=== PATIENT | female | born 1955 | race Caucasian/White ===

== ENCOUNTER 2020-03-05 15:27 | Inpatient (IN) | payer BC ==
[2020-03-05] MEDS ORDERED: MAGNESIUM SULFATE-D5W PMX 1 GM in DEXTROSE/WATER 1 100ML.BAG IVPB ONE (15:48)
--- NOTE | 2020-03-05 15:56 | ED ---
General Adult HPI - General Chief complaint: Syncope Stated complaint: Cardiac Time Seen by Provider: 03/05/20 15:40 Source: patient, EMS, RN notes reviewed, old records reviewed Mode of arrival: EMS Limitations: no limitations - History of Present Illness Initial comments: This is a 64-year-old female presents emergency department from [facility]. Patient states she [facility] because she had 3 syncopal episodes at home. Patient states she had no symptoms prior to or after the episodes. Patient stated that she currently has no symptoms. Patient states after the third episode she never has had another episode. Patient states she did hit her head at home. They did a CAT scan of her head showed no acute normalities. Patient also had a CT of her neck. According to the ER doc done at [facility] patient was in V. tach when she had the episode in the hospital they gave the patient a bolus 150 amiodarone and the patient on amiodarone drip. Patient again has not had any further episodes and she remains asymptomatic. At no time did the patient any chest pain or feel any palpitations. Patient also denies any medical history at all except for she smokes. Patient denies any shortness of breath any recent fever chills or cough. Patient denies any back pain patient denies any abdominal pain patient denies any nausea or vomiting. Patient denies any headache. - Related Data Home Medications Medication Instructions Recorded Confirmed Acetaminophen Tab [Tylenol Tab] 1,000 mg PO Q6HR PRN 03/05/20 03/05/20 LORazepam [Ativan] 1 mg PO Q4H PRN 03/05/20 03/05/20 Allergies Allergy/AdvReac Type Severity Reaction Status Date / Time azithromycin Allergy Unknown Verified 03/05/20 16:05 Sulfa (Sulfonamide Allergy Unknown Verified 03/05/20 16:05 Antibiotics) Review of Systems ROS Statement: Those systems with pertinent positive or pertinent negative responses have been documented in the HPI. ROS Other: All systems not noted in ROS Statement are negative. Past Medical History Past Medical History: No Reported History History of Any Multi-Drug Resistant Organisms: None Reported Additional Past Surgical History / Comment(s): Multiple ovarian surgeries. Past Psychological History: Anxiety, Panic Disorder Smoking Status: Current every day smoker Past Alcohol Use History: None Reported Past Drug Use History: None Reported General Exam - General Exam Comments Initial Comments: GENERAL: Patient is well-developed and well-nourished. Patient is nontoxic and well-hydrated and is in no acute distress. ENT: Neck is soft and supple. No significant lymphadenopathy is noted. Oropharynx is clear. Moist mucous membranes. Neck has full range of motion without eliciting any pain. EYES: The sclera were anicteric and conjunctiva were pink and moist. Extraocular movements were intact and pupils were equal round and reactive to light. Eyelids were unremarkable. PULMONARY: Unlabored respirations. Good breath sounds bilaterally. No audible rales rhonchi or wheezing was noted. CARDIOVASCULAR: Patient has a bradycardic rhythm at about 50 beats a minute with an occasional extrasystole. ABDOMEN: Soft and nontender with normal bowel sounds. No palpable organomegaly was noted. There is no palpable pulsatile mass. SKIN: Patient has a superficial abrasion to the left side of her forehead. NEUROLOGIC: Patient is alert and oriented x3. Cranial nerves II through XII are grossly intact. Motor and sensory are also intact. Normal speech, volume and content. Symmetrical smile. MUSCULOSKELETAL: Normal extremities with adequate strength and full range of motion. No lower extremity swelling or edema. No calf tenderness. LYMPHATICS: No significant lymphadenopathy is noted PSYCHIATRIC: Normal psychiatric evaluation. Limitations: no limitations Course Vital Signs 03/05/20 03/05/20 03/05/20 15:38 16:25 17:39 Temperature 97.9 F Pulse Rate 45 L 38 L 38 L Respiratory 16 16 18 Rate Blood Pressure 137/110 109/52 112/50 O2 Sat by Pulse 97 99 96 Oximetry Medical Decision Making - Medical Decision Making Patient's EKG shows a sinus bradycardia with a second-degree AV block with occasional PAC at [address] interval 164 QRS 136 QT interval 666 QTC is 562. Amiodarone drip is continued here. I spoke with cardiology , Dr. Velasco, and he wanted EKG sent to him which I did he wanted potassium given to the patient equivalent to 60 mEq I spoke with Dr. Jackson he agreed to accept the patient in the ICU. Patient was on the way up to the [facility] she went unresponsive she was on the monitored showed torsades versus V. tach I shocked the patient 200 J she came around and became alert and oriented though complaining of not feeling well. I spoke with the [facility]ist they wanted her up in the [facility] immediately. We did a set of vitals and sent to the [facility]. Disposition Clinical Impression: V tach, Syncope, Hypokalemia, Hypomagnesemia Disposition: ADMITTED IP TO THIS HOSP Time of Disposition: 15:59
[2020-03-05] MEDS ORDERED: NITROGLYCERIN SL TABS 0.4 MG TAB SUBLINGUAL PRN (16:00)
[2020-03-05] MEDS ORDERED: HYDROcodone/APAP 5-325MG 1 EACH TAB PO PRN (16:58)
[2020-03-05] MEDS ORDERED: LORazepam 0.5 MG TAB PO PRN (16:58)
[2020-03-05] MEDS ORDERED: HYDROmorphone 0.5 MG/0.5 ML SYRINGE IVP PRN (16:58)
[2020-03-05] MEDS ORDERED: TEMAZEPAM 15 MG CAP PO PRN (16:58)
[2020-03-05] MEDS ORDERED: Potassium Replacement Protocol 1 EACH MISC MISCELLANE PRN (17:00)
[2020-03-05] MEDS ORDERED: Magnesium Replacement Protocol 1 EACH MISC MISCELLANE PRN (17:00)
[2020-03-05] MEDS ORDERED: POTASSIUM CHLORIDE ER 20 MEQ TAB.ER PO STA (17:30)
[2020-03-05] MEDS ORDERED: LIDOCAINE 1% INJ 10MG/ML (20 ML MDV) ONE (18:36)
[2020-03-05] MEDS ORDERED: IV FLUID CONTINUATION 900 ML IV ONE (18:45)
[2020-03-05] MEDS ORDERED: ASPIRIN 325 MG TAB ONE (18:49)
[2020-03-05] MEDS ORDERED: ASPIRIN 325 MG TAB PO ONE (18:55)
[2020-03-05] MEDS ORDERED: LIDOCAINE 1% INJ 10MG/ML (20 ML MDV) SQ ONE (18:58)
[2020-03-05] MEDS ORDERED: fentaNYL (PF) 50 MCG/ML 2 ML AMP IV ONE (19:05)
[2020-03-05] MEDS ORDERED: MIDAZOLAM 2 MG/2 ML VIAL IV ONE (19:05)
[2020-03-05] MEDS ORDERED: fentaNYL (PF) 50 MCG/ML 2 ML AMP ONE (19:07)
[2020-03-05] MEDS ORDERED: SODIUM CHLORIDE 0.9% 500 ML 500 ML IV ONE (19:11)
[2020-03-05] MEDS ORDERED: IOPAMIDOL-370 125ML BTL INJ ONE (19:19)
--- NOTE | 2020-03-05 19:30 | P.CRDCN ---
History of Present Illness Consult date: 03/05/20 History of present illness: This is a 64-year-old female who was transferred from [facility] after she presented there with 3 episodes of syncope. Apparently she hit her head, during one of the syncopal episodes. Patient had a computed tomography scan at the other hospital which he did not reveal any significant abnormalities. Patient had an episode of V. tach, most probably polymorphic V. tach while she was at the [facility] and [facility]. Patient was given IV amiodarone bolus and drip. Subsequently she was transferred to [facility]. EKGs here showed evidence of sinus rhythm with evidence of advanced AV block with a 2 to one conduction conduction and abnormal EKG with prolonged QT interval and T-wave inversions in anterior leads. She was also found to have evidence of hypokalemia and hypomagnesemia. Patient was given IV potassium and magnesium. She was advised to have temporary pacemaker and rn lab was activated. While waiting for the Lab, patient had another episode of polymorphic V. tach requiring shock. She is advised to have a temporary pacemaker implantation and also cardiac catheterization to rule out underlying ischemic heart disease. Patient was explained the risks and benefits of the procedure. Prognosis is guarded Review of Systems Not obtained. Patient claims that she has panic attacks and takes Ativan 1 mg every 4-6 hours. She denied taking any other medications. Past Medical History Past Medical History: No Reported History History of Any Multi-Drug Resistant Organisms: None Reported Additional Past Surgical History / Comment(s): Multiple ovarian surgeries. Past Psychological History: Anxiety, Panic Disorder Smoking Status: Current every day smoker Past Alcohol Use History: None Reported Past Drug Use History: None Reported Medications and Allergies Home Medications Medication Instructions Recorded Confirmed Type Acetaminophen Tab [Tylenol Tab] 1,000 mg PO Q6HR PRN 03/05/20 03/05/20 History LORazepam [Ativan] 1 mg PO Q4H PRN 03/05/20 03/05/20 History Allergies Allergy/AdvReac Type Severity Reaction Status Date / Time azithromycin Allergy Unknown Verified 03/05/20 16:05 Sulfa (Sulfonamide Allergy Unknown Verified 03/05/20 16:05 Antibiotics) Physical Exam Vitals: Vital Signs Temp Pulse Resp BP Pulse Ox 03/05/20 18:31 36 L 16 120/75 99 03/05/20 17:39 38 L 18 112/50 96 03/05/20 16:25 38 L 16 109/52 99 03/05/20 15:38 97.9 F 45 L 16 137/110 97 Intake and Output 03/05/20 03/05/20 03/05/20 06:59 14:59 22:59 Intake Total 100 Balance 100 Intake: IV 100 Other: Weight 44.452 kg GENERAL EXAM: Patient is alert and oriented and doesn't appear to be in any acute distress but appears to be very anxious HEENT: Normocephalic. Normal reaction of pupils, equal size, normal range of extraocular motion. No erythema or exudates in the throat. NECK: No masses, no nuchal rigidity. CHEST: No chest wall deformity. LUNGS: Equal air entry with no crackles or wheeze. HEART: S1 and S2 normal with no audible mumurs or gallops. Regular rhythm, femorals equal on both sides.. ABDOMEN: No hepatosplenomegaly, normal bowel sounds, no guarding or rigidity. SKIN: No rashes CENTRAL NERVOUS SYSTEM: No focal deficits. EXTREMITIES: No cyanosis, clubbing or edema. Results Current Medications Generic Name Dose Route Start Last Admin Trade Name Freq PRN Reason Stop Dose Admin Hydrocodone Bitart/Acetaminophen 1 each 03/05/20 16:58 [place] 5-325 PO Q6HR PRN Pain Aspirin 325 mg 03/06/20 09:00 Aspirin PO DAILY NEELIMA Heparin Sodium (Porcine) 5,000 unit 03/05/20 21:00 Heparin SQ Q12HR NEELIMA Hydromorphone HCl 0.5 mg 03/05/20 16:58 Dilaudid IVP Q6HR PRN Severe Pain Potassium Chloride 10 meq/ IV 100 mls @ 100 mls/hr 03/05/20 16:00 Solution IVPB 03/05/20 21:59 Q1HR NEELIMA Protocol Lorazepam 0.5 mg 03/05/20 16:58 Ativan PO Q6HR PRN Mild Anxiety Lorazepam 1 mg 03/05/20 17:00 Ativan PO Q4H PRN Moderate Anxiety Miscellaneous Information 1 each 03/05/20 17:00 Magnesium Per Protocol MISCELLANE DAILY PRN Per Protocol Protocol Miscellaneous Information 1 each 03/05/20 17:00 Potassium Per Protocol MISCELLANE DAILY PRN Per Protocol Protocol Nicotine 1 patch 03/06/20 09:00 Habitrol 14mg/24hr Patch TRANSDERM DAILY NEELIMA Nitroglycerin 0.4 mg 03/05/20 16:00 Nitrostat SUBLINGUAL Q5M PRN Chest Pain Temazepam 15 mg 03/05/20 16:58 Restoril PO HS PRN Insomnia Intake and Output 03/05/20 03/05/20 03/05/20 06:59 14:59 22:59 Intake Total 100 Balance 100 Intake: IV 100 Other: Weight 44.452 kg Patient Weight 03/06/20 06:59 Weight 44.452 kg EKG Interpretations (text) Showed sinus rhythm with the greatest degree of AV block and prolonged QT interval. There are also T wave inversion in the anterior leads Assessment and Plan (1) Hypokalemia Current Visit: Yes Status: Acute Code(s): E87.6 - HYPOKALEMIA SNOMED Code(s): 64646875 (2) Hypomagnesemia Current Visit: Yes Status: Acute Code(s): E83.42 - HYPOMAGNESEMIA SNOMED Code(s): 264421055 (3) Syncope Current Visit: Yes Status: Acute Code(s): R55 - SYNCOPE AND COLLAPSE SNOMED Code(s): 723509818 (4) V tach Current Visit: Yes Status: Acute Code(s): I47.2 - VENTRICULAR TACHYCARDIA SNOMED Code(s): 01948898 Plan: We'll proceed with a temporary pacemaker implantation. We'll also do a left heart catheterization. A she denied any premonitory symptoms before the syncopal episodes. Denied any chest pains
--- NOTE | 2020-03-05 19:31 | HP ---
HISTORY AND PHYSICAL DATE OF SERVICE: 03/05/2020 CHIEF COMPLAINT: Passing out. HISTORY OF PRESENT ILLNESS: This 64-year-old woman with a past medical history of anxiety, panic disorder, not being followed by any primary physician in the outpatient setting was complaining of 3 syncopal episodes. The patient went to [facility] initially. The patient was in the bathroom and the patient passed out and the patient apparently hit her head on the left side and CT scan showed no acute abnormalities. The strip in the ER at [facility] showed ventricular tachycardia. Patient was given amiodarone bolus and as well as drip and the patient transferred to [facility] for evaluation and treatment. There is no history of chest pain. No history of any palpitations. No history of headache. No seizures at this time. The patient also complaining of raspy cough foamy cough for the last couple of days according to her, but there is no history of any sick contact according to the patient. PAST MEDICAL HISTORY: Of anxiety, panic disorder. History of nicotine dependence. MEDICATIONS: Prior to admission include home medications are: 1. Tylenol p.r.n. 2. Ativan 1 mg q.4 p.r.n. ALLERGIES: ZITHROMAX, SULFA. FAMILY HISTORY: No history of heart disease or strokes in family. SOCIAL HISTORY: History of smoking, continued ongoing. REVIEW OF SYSTEMS: ENT: No diminished vision. No diminished hearing. CARDIOVASCULAR as mentioned earlier. RESPIRATORY: As mentioned earlier. GI no nausea or vomiting. no dysuria. Nervous system: No numbness or weakness. ALLERGY/IMMUNOLOGY: No asthma or hayfever. MUSCULOSKELETAL as mentioned earlier. HEMATOLOGY: No history of anemia. ENDOCRINE: No history of diabetes or hypothyroidism. CONSTITUTIONAL: As mentioned earlier. DERMATOLOGY: Negative. RHEUMATOLOGY negative. PSYCHIATRY as mentioned earlier. PHYSICAL EXAMINATION: Alert and oriented x3. Pulse is 38, blood pressure is 109/52, respirations 16, temperature 97.9, pulse ox 99% on 2 L. HEENT: Conjunctivae normal. Oral mucosa moist. NECK is no jugular venous distention. No carotid bruit. No lymph node enlargement. Cardiovascular systems: S1, S2 muffled. Respiration: Breath sounds diminished in the bases. No rhonchi. No crackles. ABDOMEN: Soft, nontender. No mass palpable. LEGS: No edema. No swelling. NERVOUS SYSTEM: Higher functions as mentioned earlier. Moves all four extremities. No focal deficits. Lymphatics: No lymph nodes palpable in the neck, axillae or groin. SKIN: No ulcer, no rash and no bleeding. JOINTS: No active deforming arthropathy. LABS: Awaited at this time. Otherwise rhythm strip showed 2-1 AV block with PVCs. ASSESSMENT: 1. Ventricular tachycardia with syncope. 2. PVCs and 2-1 AV block in the EKG. 3. Rule out coronary artery disease. 4. Cough for evaluation. 5. Anxiety. 6. Panic disorder. 7. Continued ongoing nicotine dependence. 8. Mild protein calorie malnutrition with BMI of 17.9. 9. Hypomagnesemia. 10.Hypokalemia. RECOMMENDATIONS AND DISCUSSION: In this 64-year-old woman who presented with multiple complex medical issues, we will monitor the patient closely, continue the current medications, management and symptomatic treatment. We will continue with amiodarone drip. Cardiology consultation. Full cardiac workup. We will monitor the patient in ICU because of multiple complex medical issues as mentioned earlier. Covid 19 has been requested. Other than that, we will also recommend Ativan p.r.n. for anxiety and panic attacks. Overall prognosis extremely guarded because of multiple complex medical issues. We will recommend to monitor lytes closely and follow with replacement protocol also. Further recommendations to follow. 2D echo with Doppler has been ordered. MMODL / IJN: [id number] /
--- NOTE | 2020-03-05 19:33 | P.PCN ---
Date of Procedure: 03/05/20 Preoperative Diagnosis: High degree AV block, prolonged QT interval and recurrent polymorphic V. tach Postoperative Diagnosis: The same Procedure(s) Performed: Temporary pacemaker implantation Description of Procedure: Patient was brought to the lab in a fasting state. Patient was prepped and draped in the usual fashion. The right groin is infiltrated with lidocaine. The right femoral vein was entered using Seldinger technique. A 6-Serbian sheath was left in place. A 5-Serbian balloontipped temporary pacemaker wire was advanced under fluoroscopy and was placed in the right ventricle apical region. Satisfactory pacemaker threshold obtained. The pacemaker is set at a rate of 100 and output of 3 mV. Patient tolerated the procedure well. The sheath is sutured to the floor. Final impression: #1. Successful implantation of temporary pacemaker.
--- NOTE | 2020-03-05 19:36 | P.CARDCATH ---
Date of Procedure: 03/05/20 Preoperative Diagnosis: Recurrent polymorphic V. tach, syncope, high degree AV block and abnormal EKG Postoperative Diagnosis: Minimal coronary artery disease Procedure(s) Performed: Left heart catheterization without left ventriculography Description of Procedure: HISTORY: This is a 64-year-old female was admitted to the hospital recurrent episodes of syncope, high degree AV block and polymorphic V. tach and abnormal EKGs. Patient is advised to have cardiac catheterization to rule out any underlying ischemic heart disease. Patient is a smoker with family history of ischemic heart disease CONSENT:I have discussed the risks, benefits and alternative therapies for the above-mentioned procedure and for both sedation/analgesia as well as necessary blood product administration, if indicated, as they pertain to this patient. The patient has indicated understanding and acceptance of the risks and procedures discussed. PROCEDURE: Patient was brought to the lab in a fasting state. Patient was given some IV sedation. The right groin is infiltrated with lidocaine and right femoral artery was entered using Seldinger technique. A 6-Afghan catheter was left in place and selective coronary arteriography was performed. Patient tolerated the procedure well. Femoral angiogram was performed and Angio-Seal was applied for hemostasis. No immediate complications were noted and patient was transferred to [facility] in a stable condition Conscious Sedation: Versed 0.5mg Fentanyl 25 g Duration 18minutes HEMODYNAMICS: Aortic pressure is 140/70. Left ventricular end-diastolic pressure was not measured SELECTIVE CORONARY ARTERIOGRAPHY: LEFT MAIN: Normal length and free of occlusive disease THE LEFT ANTERIOR DESCENDING CORONARY ARTERY:. Good caliber vessel with mild plaque and calcification of the proximal segments. Mid and distal segments are free of any occlusive disease THE LEFT CIRCUMFLEX AND IS CORONARY ARTERY:. This is a fair caliber vessel. Free of occlusive disease THE RIGHT CORONARY ARTERY:. Dominant vessel giving rise to good-sized PDA and PLV. Mild plaque without any significant focal lesions LEFT VENTRICULOGRAPHY: Not performed FINAL IMPRESSION:. Mild coronary artery disease and calcification of the coronary arteries PLAN: Maximum medical therapy and this factor modification PROGNOSIS: Fair
[2020-03-05] MEDS ORDERED: RX INFO: IV CONTRAST WAS GIVEN 1 EACH MISC MISCELLANE PRN (19:42)
[2020-03-05 19:56] LABS: Glucose,Whole Blood 121 mg/dL (75-99)
[2020-03-05 20:28] LABS: Appearance,Urine Clear (Clear); Bilirubin,Urine Negative (Negative); Blood,Urine Negative (Negative); Color,Urine Light Yellow; Glucose,Urine (UA) Negative (Negative); Ketones,Urine Negative (Negative); Leukocyte Esterase,Urine Negative (Negative); Nitrite,Urine Negative (Negative); PH, Urine 6.5 (5.0-8.0); Protein,Urine 1+ (Negative); RBC,Urine 2 /hpf (0-5); Specific Gravity,Urine 1.025 (1.001-1.035); Squamous Epithelial Cell,Urine <1 /hpf (0-4); Urobilinogen,Urine <2.0 mg/dL (<2.0); WBC,Urine 1 /hpf (0-5)
[2020-03-05 20:38] LABS: Amphetamine Screen,Urine Not Detected (NotDetected); Barbiturate Screen,Urine Not Detected (NotDetected); Benzodiazepines Screen,Urine Detected (NotDetected); Cocaine Screen,Urine Not Detected (NotDetected); Methadone Screen, Urine Not Detected (NotDetected); Opiate Screen,Urine Not Detected (NotDetected); Oxycodone Screen, Urine Not Detected (NotDetected); Phencyclidine Screen,Urine Not Detected (NotDetected); Tricyclic Antidepressant,Urine Not Detected (NotDetected); Urn Cannabinoid Scrn Not Detected (NotDetected)
[2020-03-05] MEDS: HEPARIN SODIUM,PORCINE 5,000 UNIT/ML 1 ML VIAL SQ SCH (20:40)
[2020-03-05] MEDS: LORazepam 1 MG TAB PO PRN (20:41)
[2020-03-05] MEDS: NICOTINE 14MG/24HR PATCH TRANSDERM SCH (20:41)
[2020-03-05] MEDS: POTASSIUM CHLORIDE 10 MEQ in WATER FOR INJECTION 1 100ML.BAG IVPB SCH (20:41)
[2020-03-05 20:43] LABS: ALT 609 U/L (4-34); AST 394 U/L (14-36); African American GFR (CKD) >90 (>60 ml/min/1.73 sqM); Albumin 3.3 g/dL (3.5-5.0); Alkaline Phosphatase 276 U/L (38-126); Anion Gap 5 mmol/L; Blood Urea Nitrogen 12 mg/dL (7-17); Calcium 8.7 mg/dL (8.4-10.2); Carbon Dioxide 24 mmol/L (22-30); Chloride 110 mmol/L (98-107); Glucose 105 mg/dL (74-99); Non-African American GFR(CKD) >90 (>60 ml/min/1.73 sqM); Potassium 4.4 mmol/L (3.5-5.1); Sodium 139 mmol/L (137-145); Total Bilirubin 0.6 mg/dL (0.2-1.3); Total Protein 5.8 g/dL (6.3-8.2)
[2020-03-06] MEDS ORDERED: ACETAMINOPHEN TAB 325 MG TAB PO STA (01:00)
[2020-03-06] MEDS: POTASSIUM CHLORIDE 10 MEQ in WATER FOR INJECTION 1 100ML.BAG IVPB SCH ×3 (01:23→03:16)
[2020-03-06 03:06] LABS: Basophils % (A) 0 %; Eosinophils # (A) 0.1 k/uL (0-0.7); Eosinophils % (A) 1 %; HCT 37.5 % (34.0-46.0); HGB 12.2 gm/dL (11.4-16.0); Lymphocytes # (A) 2.3 k/uL (1.0-4.8); Lymphocytes % (A) 36 %; MCHC 32.5 g/dL (31.0-37.0); MCV 104.6 fL (80.0-100.0); Macrocytosis Slight; Mean Platelet Volume 9.4; Monocytes # (A) 0.4 k/uL (0-1.0); Monocytes % (A) 7 %; Neutrophils # (A) 3.4 k/uL (1.3-7.7); Neutrophils % (A) 54 %; Platelet Count 152 k/uL (150-450); RBC 3.59 m/uL (3.80-5.40); RDW 12.5 % (11.5-15.5); WBC 6.3 k/uL (3.8-10.6)
[2020-03-06 03:16] LABS: African American GFR (CKD) >90 (>60 ml/min/1.73 sqM); Anion Gap 1 mmol/L; Blood Urea Nitrogen 9 mg/dL (7-17); Calcium 8.5 mg/dL (8.4-10.2); Carbon Dioxide 22 mmol/L (22-30); Chloride 114 mmol/L (98-107); Glucose 95 mg/dL (74-99); Magnesium 2.2 mg/dL (1.6-2.3); Non-African American GFR(CKD) >90 (>60 ml/min/1.73 sqM); Potassium 4.5 mmol/L (3.5-5.1); Sodium 137 mmol/L (137-145)
[2020-03-06] MEDS: LORazepam 1 MG TAB PO PRN ×5 (03:17→20:58)
[2020-03-06 04:02] LABS: Cholesterol 134 mg/dL (<200); HDL Cholesterol 55 mg/dL (40-60); LDL Cholesterol,Calculated 59 mg/dL (0-99); Triglycerides 99 mg/dL (<150)
--- NOTE | 2020-03-06 06:32 | XR ---
EXAMINATION TYPE: XR chest 1V portable DATE OF EXAM: 03/06/2020 HISTORY: chf. REFERENCE: NONE. FINDINGS: There are mild senescent changes within the lungs. Heart size is within normal limits. Pulm onary vasculature is normal. There is no reid interstitial change. Pleural spaces are clear. IMPRESSION: BORDERLINE CARDIOMEGALY.
--- NOTE | 2020-03-06 07:41 | ECHOF ---
Referral Reason:V. tach MEASUREMENTS -------- HEIGHT: 157.5 cm WEIGHT: 44.5 kg BP: 120/75 RVIDd: 4.4 cm (< 3.3) IVSd: 1.3 cm (0.6 - 1.1) LVIDd: 3.4 cm (3.9 - 5.3) LVPWd: 1.3 cm (0.6 - 1.1) IVSs: 1.3 cm LVIDs: 2.4 cm LVPWs: 1.5 cm LAESV Index (A-L): 30.93 ml/m Ao Diam: 3.1 cm (2.0 - 3.7) AV Cusp: 1.7 cm (1.5 - 2.6) MV EXCURSION: 17.310 mm (> 18.000) MV EF SLOPE: 143 mm/s (70 - 150) EPSS: 0.9 cm RAP: 15.00 mmHg RVSP: 37.38 mmHg FINDINGS -------- Paced rhythm. This was a technically adequate study. The left ventricular size is normal. There is mild concentric left ventricular hypertrophy. Overa ll left ventricular systolic function is mild-moderately impaired with, an EF between 40 - 45 %. Mi d anteroseptal LV wall motion is hypokinetic. Apical inferior LV wall motion is hypokinetic. Ap ical septum LV wall motion is hypokinetic. [place] Hypokinesis. The right ventricle is moderately enlarged. LA is midly dilated 29-33ml/m2. The right atrial size is normal. Interatrial and interventricular septum intact. The aortic valve is trileaflet and appears structurally normal. There is no evidence of aortic regu rgitation. There is no evidence of aortic stenosis. Moderate mitral regurgitation is present. Mild tricuspid regurgitation present. There is mild pulmonary hypertension. The right ventricular systolic pressure, as measured by Doppler, is 37.38mmHg. There is no pulmonic regurgitation present. The aortic root size is normal. The inferior vena cava is dilated with poor inspiratory collapse which is consistent with estimated r ight atrial pressure of 20 mmHg. There is no pericardial effusion. CONCLUSIONS -------- 1. Paced rhythm. 2. This was a technically adequate study. 3. The left ventricular size is normal. 4. There is mild concentric left ventricular hypertrophy. 5. Overall left ventricular systolic function is mild-moderately impaired with, an EF between 40 - 45 %. 6. Mid anteroseptal LV wall motion is hypokinetic. 7. Apical inferior LV wall motion is hypokinetic. 8. Apical septum LV wall motion is hypokinetic. 9. [place] Hypokinesis. 10. The right ventricle is moderately enlarged. 11. LA is midly dilated 29-33ml/m2. 12. The right atrial size is normal. 13. Interatrial and interventricular septum intact. 14. The aortic valve is trileaflet and appears structurally normal. 15. There is no evidence of aortic regurgitation. 16. There is no evidence of aortic stenosis. 17. Moderate mitral regurgitation is present. 18. Mild tricuspid regurgitation present. 19. There is mild pulmonary hypertension. 20. The right ventricular systolic pressure, as measured by Doppler, is 37.38mmHg. 21. There is no pulmonic regurgitation present. 22. The aortic root size is normal. 23. The inferior vena cava is dilated with poor inspiratory collapse which is consistent with estimat ed right atrial pressure of 20 mmHg. 24. There is no pericardial effusion. OVER SHORT AND DAMAGE CLERK: Elisha Zaman RDCS
--- NOTE | 2020-03-06 08:59 | P.PN ---
Subjective Progress Note Date: 03/06/20 This is a 64-year-old female who was transferred from [facility] after she presented there with 3 episodes of syncope. Apparently she hit her head, during one of the syncopal episodes. Patient had a computed tomography scan at the other hospital which he did not reveal any significant abnorm alities. Patient had an episode of V. tach, most probably polymorphic V. tach while she was at [facility]. Patient was given IV amiodarone bolus and drip. Subsequently she was transferred here to [facility]. EKGs here showed evidence of sinus rhythm with evidence of advanced AV block with a 2:1 conduction, prolonged QT interval and T-wave inversions in anterior leads. She was also found to have evidence of hypokalemia and hypomagnesemia. Patient was given IV potassium and magnesium. She was advised to have temporary pacemaker and laborer general was activated. While waiting for the Lab, patient had another episode of polymorphic V. tach requiring shock. She is advised to have a temporary pacemaker implantation and also cardiac catheterization to rule out underlying ischemic heart disease. Patient was explained the risks and benefits of the procedure. Prognosis is guarded. 03/06/2020 Patient underwent cardiac catheterization done yesterday which showed mild CAD in calcification of the coronary arteries. At that time a temporary pacemaker was placed. Echocardiogram with Doppler done yesterday evening showed paced rhythm, mild to moderately impaired LV systolic function with an ejection fraction between 40-45%, mid anteroseptal, apical inferior, apical septal and apical hypokinesis with moderately enlarged RV moderate MR, mild TR and mild pulmonary hypertension. On examination, patient is resting in bed complaining of right upper quadrant discomfort and epigastric burning. Patient remains with temporary pacemaker in place pacing at a rate of 100 bpm. Upon dialing down temporary pacemaker to 40 patient remains pacemaker dependent at that rate. B lood pressure remains in the 90s systolic. She is oxygen at 2 L via nasal cannula and satting 98%. Labs this morning show potassium 4.5, BUN 9, creatinine 0.37, magnesium 2.2. Liver enzymes are elevated with AST of 394, ALTs 609 and alkaline phosphatase of 276. Objective - Vital Signs Vital signs: Vital Signs Temp 98.1 F 03/06/20 04:00 Pulse 100 03/06/20 07:00 Resp 14 03/06/20 07:00 BP 95/57 03/06/20 07:00 Pulse Ox 98 03/06/20 07:00 Intake & Output 03/05/20 03/06/20 03/06/20 18:59 06:59 18:59 Intake Total 50 1140 10 Output Total 2100 200 Balance 50 -960 -190 Weight 50.4 kg 50.4 kg Intake: IV 50 260 10 Sodium Chloride 0.9% 210 10 Oral 880 Output: Urine 2100 200 Other: # Voids 1 - Exam PHYSICAL EXAMINATION: HEENT: Head is atraumatic, normocephalic. Pupils equal, round. Neck is supple. There is no elevated jugular venous pressure. HEART EXAMINATION: Heart sounds regular, S1 and S2 with a systolic murmur. CHEST EXAMINATION: Lungs are clear to auscultation and precussion. No chest wall tenderness is noted on palpation or with deep breathing. ABDOMEN: Soft, right upper quadrant tenderness noted. Bowel sounds are heard. No organomegaly noted. EXTREMITIES: 2+ peripheral pulses with no evidence of peripheral edema and no calf tenderness noted. Right groin TVP in place. NEUROLOGIC patient is awake, alert and oriented x3. . - Labs CBC & Chem 7: 03/06/20 02:27 03/06/20 02:27 Labs: Abnormal Lab Results - Last 24 Hours (Table) 03/05/20 03/05/20 03/05/20 Range/Units 19:55 20:06 20:06 RBC (3.80-5.40) m/uL MCV (80.0-100.0) fL Chloride 110 H (98-107) mmol/L Creatinine 0.44 L (0.52-1.04) mg/dL Glucose 105 H (74-99) mg/dL POC Glucose (mg/dL) 121 H (75-99) mg/dL AST 394 H (14-36) U/L ALT 609 H (4-34) U/L Alkaline Phosphatase 276 H (38-126) U/L Troponin I 0.092 H* (0.000-0.034) ng/mL Total Protein 5.8 L (6.3-8.2) g/dL Albumin 3.3 L (3.5-5.0) g/dL Urine Protein (Negative) U Benzodiazepines Scrn (NotDetected) 03/05/20 03/06/20 03/06/20 Range/Units 20:07 02:27 02:27 RBC (3.80-5.40) m/uL MCV (80.0-100.0) fL Chloride 114 H (98-107) mmol/L Creatinine 0.37 L (0.52-1.04) mg/dL Glucose (74-99) mg/dL POC Glucose (mg/dL) (75-99) mg/dL AST (14-36) U/L ALT (4-34) U/L Alkaline Phosphatase (38-126) U/L Troponin I 0.073 H* (0.000-0.034) ng/mL Total Protein (6.3-8.2) g/dL Albumin (3.5-5.0) g/dL Urine Protein 1+ H (Negative) U Benzodiazepines Scrn Detected H (NotDetected) 03/06/20 Range/Units 02:27 RBC 3.59 L (3.80-5.40) m/uL MCV 104.6 H (80.0-100.0) fL Chloride (98-107) mmol/L Creatinine (0.52-1.04) mg/dL Glucose (74-99) mg/dL POC Glucose (mg/dL) (75-99) mg/dL AST (14-36) U/L ALT (4-34) U/L Alkaline Phosphatase (38-126) U/L Troponin I (0.000-0.034) ng/mL Total Protein (6.3-8.2) g/dL Albumin (3.5-5.0) g/dL Urine Protein (Negative) U Benzodiazepines Scrn (NotDetected) Assessment and Plan Assessment: #1 polymorphic ventricular tachycardia in the setting of hypokalemia and hypomagnesemia #2 syncope likely secondary to above #3 mild CAD #4 second-degree type II AV block, pacemaker dependent at VVI 40 Plan: We will continue transvenous pacing at this time and a rate of 90 bpm. Continue to monitor the patient overnight. Probable implantation of permanent pacemaker tomorrow. Obtain an abdominal ultrasound and GI consult. Add Protonix. We will continue to follow the patient and provide further recommendations accordingly. COAL HAULER OPERATOR note has been reviewed, I agree with a documented findings and plan of care. Patient was seen and examined.
[2020-03-06] MEDS ORDERED: NICOTINE 14MG/24HR PATCH TRANSDERM SCH (09:00)
--- NOTE | 2020-03-06 09:44 | US ---
EXAMINATION TYPE: US gallbladder DATE OF EXAM: 03/06/2020 COMPARISON: NONE CLINICAL HISTORY: elevated liver enzymes. npo EXAM MEASUREMENTS: Liver Length: 17.0 cm Gallbladder Wall: 0.2 cm CBD: 0.4 cm Right Kidney: 11.9 x 4.8 x 4.3 cm Pancreas: wnl Liver: left lobe cystic appearing lesion - 0.7 x 0.8 x 0.4 cm Gallbladder: wnl Evidence for sonographic Cervantes's sign: neg CBD: wnl Right Kidney: No hydronephrosis or masses seen Limited views of the pancreas are unremarkable. The liver is normal in size. Cystic lesion in the left lobe liver I believe is probably a prominent d uct. The gallbladder is unremarkable. The gallbladder wall measures 2 mm. The distal common hepatic duct m easures 4 mm. There is no sonographic Cervantes's sign. The right kidney is unremarkable. IMPRESSION: NO ACUTE ABNORMALITY.
[2020-03-06] MEDS: PANTOPRAZOLE 40 MG TABLET PO SCH (09:56)
[2020-03-06] MEDS: HEPARIN SODIUM,PORCINE 5,000 UNIT/ML 1 ML VIAL SQ SCH ×2 (09:58→20:58)
[2020-03-06] MEDS: NICOTINE 14MG/24HR PATCH TRANSDERM SCH (09:58)
[2020-03-06] MEDS: ASPIRIN 325 MG TAB PO SCH (09:58)
--- NOTE | 2020-03-06 10:52 | P.CNPUL ---
History of Present Illness Consult date: 03/06/20 Requesting physician: Darshan Peacock Reason for consult: other (High degree AV block and ventricular tachycardia) Chief complaint: Recurrent falls History of present illness: This is a 64-year-old female transferred from [facility] last night. Patient presented with recurrent episodes of syncope 3. Apparently sustained some head injury, and CT of the head showed no significant ab normality. Apparently on presentation to the hospital, patient was noted to be in ventricular tachycardia with polymorphic V. tach. This was her initial presentation at [facility]. Patient was placed on amiodarone bolus and drip. And she was transferred to [facility]. EKG upon presentation showed advanced high degree AV block, with a 2-1 conduction and prolonged Q T-wave interval and T-wave inversion in anterior leads. She was also hypokalemic and hypomagnesemic. Both were corrected by the ER physician. And the patient was seen on consultation by cardiology, underwent a temporary pacemaker placement, and she underwent cardiac catheterization. While in the cardiac catheterization lab, patient had one episode of polymorphic ventricular tachycardia requiring shock. Her cardiac catheterization showed mild coronary artery disease, and the recommendation was only medical therapy and factor modification. Echocardiogram showed impaired LV function with ejection fraction of 40-45%. And there was also evidence of moderate mitral regurgitation and mild pulmonary hypertension. Right-sided pressure was estimated to be about 37. Patient was admitted to the ICU last night, and I was asked to see her on consultation. During my evaluation, patient was noted to be stable, her blood pressure is normal, she is fully paced, and in no distress. Noted to be sligh tly anxious. Chest x-ray showed mostly borderline cardiomegaly, no evidence of active pulmonary disease. She was already seen by salesperson jewelry morning, and the plan is to eventually schedule the patient for permanent pacemaker implantation in the next 24-48 hours. Review of Systems Constitutional: Negative Pulmonary: Negative Cardiac: As noted in HPI GI: Negative Genitourinary: Negative Musculoskeletal: Negative Skin: Negative Hematologic: Negative Neurologic: Syncope 3, cardiac in nature. Psychiatric: History of generalized anxiety disorder. Lymphatics: Negative Endocrine: Negative Past Medical History Past Medical History: No Reported History History of Any Multi-Drug Resistant Organisms: None Reported Additional Past Surgical History / Comment(s): Multiple ovarian surgeries. Past Psychological History: Anxiety, Panic Disorder Smoking Status: Current every day smoker Past Alcohol Use History: None Reported Past Drug Use History: None Reported - Past Family History Mother History Unknown: Yes Family Medical History: CVA/TIA Father History Unknown: Yes Family Medical History: Cancer Medications and Allergies Home Medications Medication Instructions Recorded Confirmed Type Acetaminophen Tab [Tylenol Tab] 1,000 mg PO Q6HR PRN 03/05/20 03/05/20 History LORazepam [Ativan] 1 mg PO Q4H PRN 03/05/20 03/05/20 History Allergies Allergy/AdvReac Type Severity Reaction Status Date / Time azithromycin Allergy Unknown Verified 03/05/20 16:05 Sulfa (Sulfonamide Allergy Unknown Verified 03/05/20 16:05 Antibiotics) Physical Exam Vitals: Vital Signs Temp Pulse Resp BP Pulse Ox 03/06/20 09:00 89 25 H 101/56 96 03/06/20 08:00 98.3 F 100 16 103/74 95 03/06/20 07:00 100 14 95/57 98 03/06/20 06:00 100 13 96/60 98 03/06/20 05:00 100 14 92/63 97 03/06/20 04:00 98.1 F 100 15 103/71 97 03/06/20 03:46 16 03/06/20 03:00 100 16 97/56 94 L 03/06/20 02:00 100 16 95/62 95 03/06/20 01:00 100 19 104/68 95 03/06/20 00:00 98.1 F 100 17 106/61 95 03/05/20 23:49 20 03/05/20 23:00 100 20 115/54 96 03/05/20 22:00 100 52 H 117/76 97 03/05/20 21:00 98.3 F 100 15 122/68 98 03/05/20 20:00 100 15 97 03/05/20 18:31 36 L 16 120/75 99 03/05/20 17:39 38 L 18 112/50 96 03/05/20 17:22 18 97 03/05/20 16:25 38 L 16 109/52 99 03/05/20 15:38 97.9 F 45 L 16 137/110 97 Intake and Output 03/05/20 03/06/20 03/06/20 22:59 06:59 14:59 Intake Total 160 1030 30 Output Total 500 1600 450 Balance -340 -570 -420 Intake: IV 160 150 30 Sodium Chloride 0.9% 60 150 30 Oral 880 Output: Urine 500 1600 450 Other: # Voids 1 Weight 50.4 kg 50.4 kg Physical Exam: Revealed a 64-year-old female in no distress. Noted to be slightly anxious. Head: Superficial abrasion noted the left side of the forehead, and bruising noted related to recent fall/syncope. HEENT:[Neck is supple.] [No neck masses.] [No thyromegaly.] [No JVD.] Chest: [Clear throughout, no crackles, no rhonchi, no wheezes.] Cardiac Exam: [Normal S1 and S2, no S3 gallop, no murmur.] Abdomen: [Soft, nontender, no megaly, no rebound, no guarding, normal bowel sounds.] Extremities: [No clubbing, no edema, no cyanosis. Temporary pacemaker wires noted in the right groin. Neurological Exam: [No focal neurologic deficit.] Alert and oriented 3. Psychiatric: Slightly anxious mood, blunt affect, normal mental status. Skin: Abrasion/superficial left forehead, and bruising noted from recent fall. Results - Laboratory Findings CBC and BMP: 03/06/20 02:27 03/06/20 02:27 Abnormal lab findings: Abnormal Labs 03/05/20 03/05/20 03/05/20 19:55 20:06 20:06 RBC MCV Chloride 110 H Creatinine 0.44 L Glucose 105 H POC Glucose (mg/dL) 121 H AST 394 H ALT 609 H Alkaline Phosphatase 276 H Troponin I 0.092 H* Total Protein 5.8 L Albumin 3.3 L Urine Protein U Benzodiazepines Scrn 03/05/20 03/06/20 03/06/20 20:07 02:27 02:27 RBC MCV Chloride 114 H Creatinine 0.37 L Glucose POC Glucose (mg/dL) AST ALT Alkaline Phosphatase Troponin I 0.073 H* Total Protein Albumin Urine Protein 1+ H U Benzodiazepines Scrn Detected H 03/06/20 02:27 RBC 3.59 L MCV 104.6 H Chloride Creatinine Glucose POC Glucose (mg/dL) AST ALT Alkaline Phosphatase Troponin I Total Protein Albumin Urine Protein U Benzodiazepines Scrn - Diagnostic Findings Chest x-ray: image reviewed (As noted in HPI, normal) Assessment and Plan Assessment: Impression: Recurrent syncope secondary to polymorphic ventricular tachycardia Hypokalemia and hypomagnesemia possibly contributing to her ventricular tachycardia. Mild coronary artery disease. Generalized anxiety disorder. Patient is maintained on Ativan. Second-degree type II AV block, status post temporary pacemaker placement. Recommendation: Continue present supportive care measures Continue to monitor in the ICU and monitor electrolytes including potassium and magnesium. Continue temporary pacing. And likely patient will require permanent pacemaker implantation tomorrow. Continue medical therapy for underlying coronary artery disease which is mild and the risk modifications. We will reevaluate in a.m. Continue GI and DVT prophylaxis. Time with Patient: Greater than 30
[2020-03-06] MEDS ORDERED: MELATONIN 5 MG TABLET PO PRN (13:04)
[2020-03-06] MEDS: MAG HYDROX/AL HYDROX/SIMETH 30 ML CUP PO PRN ×2 (14:10→23:28)
[2020-03-06] MEDS: ACETAMINOPHEN TAB 325 MG TAB PO PRN ×2 (15:33→23:45)
--- NOTE | 2020-03-06 15:52 | PN ---
PROGRESS NOTE She was admitted yesterday with recurrent syncopal episodes with documented polymorphic ventricular tachycardia and high-degree AV block. The patient had a temp replacement yesterday and remained stable overnight. Today, we tried to bring the heart pacing rate down, but the patient did not have any underlying conduction. On review of her EKG showed ST elevations and changes in the EKG, which could be consistent with Brugada syndrome. Her echo also showed some segmental wall motion abnormalities. Most probably, the patient will require a defibrillator implantation. I will make the decision after discussing with Dr. Aguero, the auto tune up mechanic. Meanwhile, we will continue current medical therapy. We will repeat the lab work tomorrow. Her ultrasound of the gallbladder came back normal. MMODL / IJN: [id number] /
--- NOTE | 2020-03-06 16:22 | PN ---
PROGRESS NOTE DATE OF SERVICE: 03/06/2020 This 64-year-old woman admitted with syncope, was found to have ventricular tachycardia. Patient had cardiac arrhythmia also. Patient underwent a left heart cardiac catheterization by Cardiology showed only very minimal coronary artery disease. The patient also underwent a temporary venous pacemaker implantation for high-degree AV block, prolonged QT interval and recurrent polymorphic ventricular tachycardia. The patient slated for pacemaker implantation. An abdominal ultrasound was also done which showed no acute abnormality. Multiple consultants are following the patient closely. The patient being closely monitored in ICU at this time. PAST MEDICAL HISTORY: Reviewed. REVIEW OF SYSTEMS: Cardiovascular system: No angina or palpitations. Otherwise as mentioned earlier. Respiration no cough. GASTROINTESTINAL: As mentioned earlier. no dysuria. Nervous systems: No numbness or weakness. CURRENT MEDICATIONS: Medications are reviewed and include: 1. Tilden 5 mg q.6 p.r.n. 2. Maalox 30 mL q.4 p.r.n. 3. Aspirin 320. 4. Heparin. 5. Dilaudid. 6. Ativan. 7. Melatonin. 8. P.r.n. medications. 9. Habitrol. 10.Protonix. 11.Restoril. PHYSICAL EXAM: Patient is alert, oriented x3. Pulse is 89. Blood pressure 139/40, respiration 14, temperature 98.5, pulse ox is 94% on room air. HEENT: Conjunctivae normal. NECK: No JVD. CARDIOVASCULAR: S1, S2 muffled. RESPIRATORY: Breath sounds diminished in the bases. No rhonchi. No crackles. ABDOMEN: Soft, nontender. No mass palpable. LEGS no edema. No swelling. NERVOUS SYSTEM: Higher functions as mentioned earlier. Moves all 4 limbs. No focal motor or sensory deficits. LYMPHATICS: No lymph nodes palpable in the neck, axillae or groin. SKIN: No ulcers, rashes or bleeding. JOINTS: No active deforming arthropathy. LABS: AST 394, ALT is 609 and alkaline phosphatase is 276. The drug screen is positive for benzodiazepines, alejo verus is negative. ASSESSMENT: 1. Polymorphic ventricular tachycardia secondary to possible QT prolongation with high- grade AV block, status post transvenous pacemaker implantation. 2. Status post cardiac catheterization showing only minimal coronary artery disease. 3. Chronic congestive heart failure with chronic systolic dysfunction ejection fraction 40-45 percent. 4. History of anxiety. 5. Panic disorder. 6. Continued ongoing nicotine dependence. 7. Mild protein calorie malnutrition with BMI of 17.9. 8. Hypomagnesemia. 9. Hypokalemia. 10.Increased AST, ALT, hepatitis of undetermined etiology. 11.Troponin 0.092, indeterminate. 12.Hyperchloremia. 13.Increased MCV. 14.Moderate mitral regurgitation the 2D echo. RECOMMENDATIONS AND DISCUSSION: In this 64-year-old woman who presented with multiple complex medical issues, we will monitor the patient closely, continue the current medications, management, symptomatic treatment. I recommend use Ativan p.r.n. Otherwise, we will continue to monitor. Closely follow with Cardiology. The most recent chest x-ray which was evaluated personally by me showed only borderline cardiomegaly. A 2D echo with Doppler was done by Cardiology which showed ejection fraction 40-45 percent. Apical wall hypokinesis also noted. Takotsubo is a concern. Otherwise, moderate mitral regurgitation also noted in the 2D echo. We will continue to monitor. Monitor fluid and electrolytes balance closely. As mentioned earlier, possible pacemaker implant by Cardiology. Symptomatic treatment. Guarded prognosis. Further recommendations to follow. MMODL / IJN: [id number] /
[2020-03-06] MEDS ORDERED: BISACODYL 10 MG SUPP RECTAL STA (21:22)
[2020-03-07] MEDS: LORazepam 1 MG TAB PO PRN ×5 (03:38→23:33)
[2020-03-07 04:59] LABS: Basophils % (A) 0 %; Eosinophils # (A) 0.1 k/uL (0-0.7); Eosinophils % (A) 1 %; HCT 38.5 % (34.0-46.0); HGB 12.7 gm/dL (11.4-16.0); Lymphocytes # (A) 2.2 k/uL (1.0-4.8); Lymphocytes % (A) 34 %; MCHC 32.9 g/dL (31.0-37.0); MCV 103.4 fL (80.0-100.0); Macrocytosis Slight; Monocytes # (A) 0.5 k/uL (0-1.0); Monocytes % (A) 8 %; Neutrophils # (A) 3.5 k/uL (1.3-7.7); Neutrophils % (A) 54 %; Platelet Count 165 k/uL (150-450); RBC 3.72 m/uL (3.80-5.40); RDW 12.3 % (11.5-15.5); WBC 6.4 k/uL (3.8-10.6)
[2020-03-07 05:24] LABS: African American GFR (CKD) >90 (>60 ml/min/1.73 sqM); Anion Gap 4 mmol/L; Blood Urea Nitrogen 5 mg/dL (7-17); Calcium 8.6 mg/dL (8.4-10.2); Carbon Dioxide 24 mmol/L (22-30); Chloride 110 mmol/L (98-107); Glucose 91 mg/dL (74-99); Non-African American GFR(CKD) >90 (>60 ml/min/1.73 sqM); Potassium 3.8 mmol/L (3.5-5.1); Sodium 138 mmol/L (137-145)
[2020-03-07] MEDS ORDERED: POTASSIUM CHLORIDE ER 20 MEQ TAB.ER PO SCH (06:00)
[2020-03-07] MEDS: PANTOPRAZOLE 40 MG TABLET PO SCH (06:30)
--- NOTE | 2020-03-07 07:18 | XR ---
EXAMINATION TYPE: XR chest 1V DATE OF EXAM: 03/07/2020 COMPARISON: 03/06/2020 HISTORY: Shortness of breath TECHNIQUE: Single frontal view of the chest is obtained. FINDINGS: Increasing strand-like bibasilar opacities. Background emphysematous change and upper limi ts of normal cardiomediastinal silhouette size. Diffuse osseous demineralization is noted. There is s light retrocardiac lucency that could relate to a hiatal hernia or the emphysematous change. No sizab le pleural effusion or pneumothorax. IMPRESSION: Increasing reticular bibasilar opacities, likely atelectasis. Developing pneumonia is an alternative possibility in the appropriate clinical setting.
[2020-03-07] MEDS: MAGNESIUM SULFATE-D5W PMX 1 GM in DEXTROSE/WATER 1 100ML.BAG IVPB SCH ×2 (08:07→09:55)
[2020-03-07] MEDS: NICOTINE 14MG/24HR PATCH TRANSDERM SCH (08:07)
[2020-03-07] MEDS: HEPARIN SODIUM,PORCINE 5,000 UNIT/ML 1 ML VIAL SQ SCH ×2 (08:07→20:16)
[2020-03-07] MEDS: ASPIRIN 325 MG TAB PO SCH (08:07)
[2020-03-07] MEDS: SPIRONOLACTONE 25 MG TAB PO SCH (08:33)
[2020-03-07] MEDS ORDERED: ceFAZolin 1,000 MG in SODIUM CHLORIDE 0.9% IRRIGATIO 250 ML IRRIGATION ONE ×3 (09:31→14:00)
[2020-03-07] MEDS ORDERED: SODIUM CHLORIDE 0.9% 1,000 ML IV SCH ×2 (09:45)
[2020-03-07 09:50] LABS: Total Bilirubin 0.3 mg/dL (0.2-1.3)
[2020-03-07] MEDS ORDERED: HYDROmorphone (PF) 1 MG/ML ONE (10:21)
[2020-03-07] MEDS ORDERED: MIDAZOLAM 2 MG/2 ML VIAL ONE (10:21)
[2020-03-07] MEDS ORDERED: PHENYLEPHRINE-0.9% NACL SYG 1 MG/10 ML SYRINGE ONE (10:21)
[2020-03-07] MEDS ORDERED: SUCCINYLCHOLINE CHLORIDE 100 MG/5 ML SYR IV ONE (10:21)
[2020-03-07] MEDS ORDERED: fentaNYL (PF) 50 MCG/ML 2 ML AMP ONE (10:21)
[2020-03-07] MEDS ORDERED: PROPOFOL 10 MG/ML 20 ML VIAL IV ONE (10:21)
[2020-03-07] MEDS ORDERED: LIDOCAINE 1% INJ 10MG/ML (20 ML MDV) ONE ×2 (10:21→11:18)
[2020-03-07] MEDS ORDERED: IOPAMIDOL-370 50ML BTL INJ ONE (10:48)
--- NOTE | 2020-03-07 11:28 | P.PN ---
Subjective This is Willa Guillen PA-C scribing on behalf of Dr. Agureo The patient was interviewed and examined by Dr. Aguero chart reviewed HPI/interval history Patient is a 64-year-old female who was transferred from [facility]. She presented there with syncope. EKG upon presentation showed advanced heart block, left bundle branch block, and prolonged QT interval. He had an episode of torsades. She was given IV amiodarone and transferred to [facility]. While awaiting catheterization, she had another episode of torsades requiring shock. She underwent cardiac catheterization showing mild CAD and calcification of the coronary arteries. She had a temporary pacemaker placed. She is currently pacing at 90 beats per minute. EXAMINATION She is afebrile, pulse in the 90s, respirations 16, blood pressure 112/60, ox ygen saturation 94% on room air Dr. Aguero examined the patient On exam heart is regular Lungs clear to auscultation bilaterally REVIEW OF LABS, ECG WBC 6.4, hemoglobin 12.7, platelets 165, potassium 3.8, BUN 5, creatinine 0.14, magnesium 1.8 Echocardiogram shows EF 40-45%, mid josefina-septal hypokinesis, apical inferior hypokinesis, apical septal hypokinesis, apical hypokinesis, RV moderately en larged, moderate MR IMPRESSION / ASSESSMENT: # Multiple episodes of syncope, multiple episodes of torsades, one requiring a shock # Advanced heart block, status post temporary pacemaker # Left bundle branch block # Cardiomyopathy with wall motion abnormalities, EF 40-45%, 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, 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 # mild non obstructive CAD and coronary calcification PLAN: Start spironolactone 25 mg daily Recommend implantation of a biventricular ICD maintain potassium above 4.0 continue magnesium supplementation will treat with high dose beta blockers once biventricular ICD is implanted Objective - Vital Signs Vital signs: Vital Signs Temp 98.1 F 03/07/20 04:00 Pulse 90 03/07/20 07:00 Resp 16 03/07/20 07:00 BP 112/60 03/07/20 07:00 Pulse Ox 94 L 03/07/20 07:00 Intake & Output 03/06/20 03/07/20 03/07/20 18:59 06:59 18:59 Intake Total 200 720 40 Output Total 1000 1350 400 Balance -800 -630 -360 Weight 51.3 kg Intake: IV 200 240 40 Sodium Chloride 0.9% 200 240 40 Tube Feeding 480 Output: Urine 1000 1350 400 Other: # Voids 1 - Labs CBC & Chem 7: 03/07/20 03:59 03/07/20 03:59 Labs: Abnormal Lab Results - Last 24 Hours (Table) 03/07/20 03/07/20 Range/Units 03:59 03:59 RBC 3.72 L (3.80-5.40) m/uL MCV 103.4 H (80.0-100.0) fL Chloride 110 H (98-107) mmol/L BUN 5 L (7-17) mg/dL Creatinine 0.42 L (0.52-1.04) mg/dL
[2020-03-07] MEDS ORDERED: SODIUM CHLORIDE 0.9% 1,000 ML IV ONE (11:29)
[2020-03-07] MEDS ORDERED: LIDOCAINE 1% INJ 10MG/ML (20 ML MDV) SQ ONE (11:34)
--- NOTE | 2020-03-07 12:14 | P.CONS ---
History of Present Illness - Reason for Consult Consult date: 03/07/20 Elevated liver enzymes Requesting physician: Darshan Peacock - Chief Complaint Syncope - History of Present Illness 64-year-old female who presented as a transfer from [facility] where she had presented due to complaints of syncope and was found to have ventricular tachycardia, with EKG on presentation showed an advanced heart block, left bundle branch block and prolonged QT. The patient had an episode of torsades and was started on an IV amiodarone drip and transferred to [facility]. She underwent cardiac catheterization with mild coronary artery disease and had a temporary pacemaker placed. Patient is scheduled for placement of a biventricular ICD today. The patient was noted to have elevation of liver enzymes on presentation with total bilirubin 0.6, alkaline phosphatase 276, AST 394 and ALT 609 which have improved today with total bilirubin 0.3, alkaline phosphatase 231, AST 76 and ALT 347. No acute abnormalities were found on ultrasound of the abdomen. On questioning the patient denies any prior history of elevated liver enzymes, any history of intrinsic liver disease or familial history of liver disease. She denies any alcohol use. She denies any episodes of jaundice or cold colored urine. Review of Systems REVIEW OF SYSTEMS: CONSTITUTIONAL: Denies any fevers, chills, weight change or fatigue. CARDIOVASCULAR: Denies any chest pain, palpitations high or low blood pressures, was positive for syncope. RESPIRATORY: Denies any shortness of breath, hemoptysis or cough. GENITOURINARY: No dysuria or hematuria. MUSCULOSKELETAL: No weakness reported. SKIN: Denies any new rashes or lesions, jaundice or pallor. PSYCHIATRIC: Denies any depression or anxiety. NEUROLOGY: Denies headache, denies any new focal deficits. EARS/NOSE/THROAT: No recent hearing change, congestion, nasal discharge or sore throat. EYES: No pain in eyes, discharge or change in vision. GASTROINTESTINAL: As per HPI. Past Medical History Past Medical History: No Reported History History of Any Multi-Drug Resistant Organisms: None Reported Additional Past Surgical History / Comment(s): Multiple ovarian surgeries. Past Psychological History: Anxiety, Panic Disorder Smoking Status: Current every day smoker Past Alcohol Use History: None Reported Past Drug Use History: None Reported - Past Family History Mother History Unknown: Yes Family Medical History: CVA/TIA Father History Unknown: Yes Family Medical History: Cancer Medications and Allergies Home Medications Medication Instructions Recorded Confirmed Type Acetaminophen Tab [Tylenol Tab] 1,000 mg PO Q6HR PRN 03/05/20 03/05/20 History LORazepam [Ativan] 1 mg PO Q4H PRN 03/05/20 03/05/20 History Allergies Allergy/AdvReac Type Severity Reaction Status Date / Time azithromycin Allergy Unknown Verified 03/05/20 16:05 Sulfa (Sulfonamide Allergy Unknown Verified 03/05/20 16:05 Antibiotics) Physical Exam Vitals: Vital Signs Temp Pulse Resp BP Pulse Ox 03/07/20 10:00 89 20 94 L 03/07/20 09:00 89 18 117/76 95 03/07/20 08:00 98.0 F 89 16 116/77 93 L 03/07/20 07:00 90 16 112/60 94 L 03/07/20 06:00 89 15 119/70 95 03/07/20 05:00 89 14 114/76 94 L 03/07/20 04:00 98.1 F 89 18 114/67 95 03/07/20 03:00 89 114/62 94 L 03/07/20 02:00 89 18 114/60 93 L 03/07/20 01:00 89 16 112/64 95 03/07/20 00:00 98.2 F 89 14 104/65 95 03/06/20 23:00 89 105/65 94 L 03/06/20 22:00 89 97/33 95 03/06/20 21:00 89 15 102/61 96 03/06/20 20:00 98.1 F 89 14 91/62 96 03/06/20 19:00 89 20 86/55 95 03/06/20 18:00 89 21 113/73 94 L 03/06/20 17:00 89 15 109/55 93 L 03/06/20 16:00 98.5 F 89 20 110/83 95 03/06/20 15:00 89 14 117/65 95 03/06/20 14:00 89 20 117/65 97 03/06/20 13:00 89 14 113/46 94 L Intake and Output 03/06/20 03/07/20 03/07/20 22:59 06:59 14:59 Intake Total 160 640 130 Output Total 750 800 550 Balance -590 -160 -420 Intake: IV 160 160 130 Sodium Chloride 0.9% 160 160 80 Tube Feeding 480 Output: Urine 750 800 550 Other: # Voids 1 Weight 51.3 kg On physical examination, patient appears comfortable in no apparent distress. HEAD: Normocephalic, atraumatic. EYES: No scleral icterus. No conjunctival injection. MOUTH: No lesions, tongue midline. NECK: Trachea midline, no gross abnormalities. CHEST: Clear to auscultation with no wheezing or rhonchi appreciated. HEART: Regular rate and rhythm. ABDOMEN: Soft, thin. Bowel sounds are positive. No organomegaly. No guarding or rigidity. EXTREMITIES: No pedal edema. SKIN: No rashes, no jaundice. NEUROLOGIC: Alert and oriented x3. No focal deficits. Results CBC & Chem 7: 03/07/20 03:59 03/07/20 03:59 Labs: Abnormal Lab Results - Last 24 Hours (Table) 03/07/20 03/07/20 03/07/20 Range/Units 03:59 03:59 03:59 RBC 3.72 L (3.80-5.40) m/uL MCV 103.4 H (80.0-100.0) fL Chloride 110 H (98-107) mmol/L BUN 5 L (7-17) mg/dL Creatinine 0.42 L (0.52-1.04) mg/dL AST 76 H (14-36) U/L ALT 347 H (4-34) U/L Alkaline Phosphatase 231 H (38-126) U/L US - abdomen: report reviewed (Ultrasound of the abdomen essentially negative.) Assessment and Plan (1) Elevated liver enzymes Narrative/Plan: 64-year-old female transferred to [facility] on after initially presenting with complaints of syncope found to have QT prolongation, left bundle-branch block with noncritical coronary artery disease the patient had external pacemaker placed and is currently scheduled for biventricular ICD placement. Patient was found to have per solids on presentation. Currently she is denying any acute complaints. She was found to have a predominantly hepatocellular pattern of elevation of her liver enzymes improved today with total bilirubin 0.3, alkaline phosphatase 231, AST 76 and ALTs 347. Ultrasound of the abdomen unremarkable. No significant history of liver disease or high risk behavior. Suspicion is for elevation in liver enzymes related to coronary event. Continue to trend liver enzymes. At this time ultrasound of the abdomen reviewed and viral hepatitis panel ordered. Can consider full serology if liver enzymes do not improve. Current Visit: Yes Status: Acute Code(s): R74.8 - ABNORMAL LEVELS OF OTHER SERUM ENZYMES SNOMED Code(s): 423219058 Plan: Supportive care Okay for diet from GI standpoint Plan is for biventricular ICD placement with cardiology today Continue cardiac management Avoid hepatotoxic medications Continue to trend CBC, CMP Viral hepatitis panel pending Thank you for allowing us to participate in the care of the patient
--- NOTE | 2020-03-07 13:56 | PN ---
PROGRESS NOTE PULMONARY/CRITICAL CARE PROGRESS NOTE: DATE OF SERVICE: 03/07/2020 This is a 64-year-old female who was admitted to the hospital on March 05, came to the ICU on March 05. She was admitted with a diagnosis of polymorphic ventricular tachycardia and torsades. She was shocked 1 time. She is currently on room air. She is getting saline at 20 mL an hour. The patient currently has a temporary venous pacemaker in place and may be going for permanent pacemaker today or an AICD placement. Anyway, the patient has a history of mild coronary artery disease, generalized anxiety disorder, and second-degree type 2 AV block. She is stable currently. Denies any chest pain or chest discomfort. Denies any shortness of breath. Current vital signs are reviewed, temperature is 98, heart rate 89, respiratory rate 20, blood pressure 117/76 mean 89, saturations are 94% on room air. Appears in no acute distress. HEENT: : Examination is grossly unremarkable. Mucous membranes are moist. No supplemental oxygen. NECK: Supple. Full range of motion. No adenopathy or thyromegaly. Neck veins are flat. CARDIOVASCULAR: Examination reveals regular rhythm and rate. Heart rate about 90 beats per minute. S1, S2 normal. No murmur. LUNGS: Reveal clear breath sounds equal. No wheezes or rhonchi. ABDOMEN: Soft, bowel sounds are heard. EXTREMITIES: Intact. No cyanosis, clubbing, or edema. SKIN: Without rash. NEUROLOGIC: Examination is brief but nonfocal. Microbiology is negative. White count 6.4, hemoglobin 12.7, hematocrit 38.5, platelet count 165,000. Sodium 138, potassium 3.8, chloride is 110, CO2 is 24, anion gap is 4. BUN and creatinine were 5 and 0.42. Troponins were 0.092 and 0.073. Urine is negative. Drug screen was positive for benzodiazepines. Her COVID-19 test was negative. The most recent chest x-ray from March 07 is essentially unremarkable save for some mild atelectasis. CURRENT MEDICATIONS: Reviewed. She is on Tylenol, aspirin, heparin, [place], Dilaudid, Ativan, Maalox, magnesium replacement protocol, melatonin, nicotine patch, nitroglycerin tablets, Protonix, potassium replacement, Aldactone and Restoril. ASSESSMENT: 1. Recurrent syncope secondary to polymorphic ventricular tachycardia, status post temporary transvenous pacemaker placement with anticipated permanent pacemaker placement and/or AICD placement. 2. Mild hypokalemia and hypomagnesemia, possibly contributing to the ventricular tachycardia. 3. Mild coronary artery disease. 4. Generalized anxiety disorder. 5. Status second-degree type 2 AV block. PLAN: The patient's chest x-ray is reviewed. She likely does suffer from mild COPD/emphysema. She is a heavy smoker. We counseled her about the importance of smoking cessation. She does not currently smoke. She continues on GI and DVT prophylaxis. Possible permanent pacemaker today versus AICD placement. Will continue to follow. Prognosis is guarded. MMODL / IJN: [id number] /
[2020-03-07] MEDS ORDERED: ACETAMINOPHEN TAB 325 MG TAB PO PRN (14:08)
--- NOTE | 2020-03-07 14:14 | P.PCN ---
Preoperative Diagnosis: Extended procedure This is a long procedure. The lateral vein he started for LV lead placement was difficult access on account of its tortuosity insufficiency remained coronary sinus body and it took multiple sheaths catheters H plasty wires and subselective catheters to find the access this vein following which was screw-in LV lead was placed in the vein The anterior vein and the posterior lateral vein was very diminutive.
[2020-03-07] MEDS ORDERED: ACETAMINOPHEN IV (For NPO) 1,000 MG in EMPTY BAG 1 BAG IVPB ONE (14:30)
--- NOTE | 2020-03-07 15:35 | PN ---
PROGRESS NOTE DATE OF SERVICE: 03/07/2020 This 61-year-old woman is admitted with syncope and ventricular tachycardia with associated QT prolongation. The patient is slated to have pacemaker implantation today. The gastroenterology has also been consulted and elevated LFTs have been noted. The troponin has been found to be indeterminate. The alejo virus test negative. The patient also had a gallbladder ultrasound which did not note any acute abnormality. PAST MEDICAL HISTORY: Reviewed. REVIEW OF SYSTEMS: CARDIOVASCULAR SYSTEM: No angina. RESPIRATION: As mentioned earlier. GI: As mentioned earlier. : No dysuria. NERVOUS SYSTEM: No numbness or weakness. CURRENT MEDICATIONS: Are reviewed include Tylenol p.r.n., [place] 5 mg q.6 p.r.n., Maalox, aspirin, heparin 5 b.i.d., Dilaudid, Ativan, melatonin, replacement protocol, Nitrostat, Protonix, Aldactone, Restoril. PHYSICAL EXAM: Patient is alert, oriented x3. Pulse is 89, blood pressure 117/70, respiration 18, temperature 98 degrees, pulse ox 93% on room air. HEENT: Conjunctivae normal, oral mucosa moist. RESPIRATION: Breath sounds diminished at the bases, a few scattered rhonchi, no crackles. ABDOMEN: Soft, nontender. No mass palpable. LEGS: No edema. No swelling. NERVOUS SYSTEM: No focal deficits. LABS: WBC is 6.8, hemoglobin is 12.1, sodium 138, potassium 3.8 and AST is 76, ALT is 347. ASSESSMENT: 1. Polymorphic ventricular tachycardia secondary to possible QT prolongation with high- grade AV block, status post transvenous pacemaker implant for permanent pacemaker implantation. 2. Status post cardiac catheterization showing only minimal coronary artery disease. 3. Congestive heart failure with chronic systolic dysfunction, ejection fraction 40%- 45%. 4. History of anxiety, history of panic disorder. 5. Continued ongoing nicotine dependence. 6. Mild protein calorie malnutrition with body mass index of 17.9. 7. Hypomagnesemia. 8. Hypokalemia. 9. Increased AST, ALT, possibly acute hepatitis of undetermined etiology. 10.Troponin 0.092, indeterminate. 11.Hypochloremia. 12.Increased MCV. 13.Moderate mitral regurgitation in the 2D echo. 14.FULL CODE. RECOMMENDATIONS: In this 64-year-old woman who presented with multiple complex medical issues, will monitor the patient closely. Continue with the current management, symptomatic treatment. Cardiac catheterization showed as a result as mentioned earlier. Continue with antiplatelet agents. Otherwise, I would also recommend closely follow with Cardiology regarding the pacemaker implant. Continue the rest of medications. Gastroenterology input appreciated. I would recommend repeat labs and further recommendations. Prognosis guarded, discussed with the patient. JOANNA / ERNIEN: [id number] /
[2020-03-07] MEDS: METOPROLOL SUCCINATE (ER) 50 MG TAB.ER.24H PO SCH (15:50)
[2020-03-07 16:37] LABS: Hepatitis A Antibody IgM Non-Reactive (Non-Reactive); Hepatitis B Core IgM Non-Reactive (Non-Reactive); Hepatitis B Surface Antigen Non-Reactive (Non-Reactive); Hepatitis C IgG Antibody Non-Reactive (Non-Reactive)
[2020-03-07] MEDS: AMIODARONE 200 MG TAB PO SCH (20:16)
--- NOTE | 2020-03-07 20:53 | PCN ---
PROCEDURE NOTE Ad Doherty is a 64-year-old female who presented with syncope. She was found to be in complete heart block and also had episodes of ventricular fibrillation/torsade with associated prolongation of the QT interval. She was not on any QT-prolonging medications. She does have cardiomyopathy, ejection fraction of about 40% to 45%, mild coronary artery disease by coronary angiography, and no past history of QT prolongation or family history of QT prolongation. She has wall motion abnormalities on the 2D echo, namely anterior septum and in the setting of heart block with an underlying left bundle branch block with a QRS width of greater than 136 milliseconds and cardiomyopathy with wall motion abnormalities, particularly in the septum; chronic myocarditis and especially sarcoidosis should be strongly considered. Nevertheless, a biventricular ICD was recommended to avoid further reduction in LV systolic function with 100% RV pacing, which would be expected with a standard dual- chamber ICD. The patient was brought to the EP lab in a fasting state. Written informed consent was obtained prior to the procedure. The procedure performed under general anesthesia. She already had a TVP in place and was pacing 100% from the transvenous temporary pacemaker. The left pectoral area was prepped and draped as per protocol. Lidocaine 1% was used for local anesthesia. IV antibiotics were administered. An incision was made in the left pectoral area and a subfascial pocket was made. Hemostasis was assured. The left axillary vein was accessed at 3 separate points under fluoroscopy based upon the patent venogram. Three leads were positioned in the right heart. The atrial lead was a passive lead, Medtronic 53 cm in length, model #4574 serial #[id number]. For the right atrial lead, P-waves were 4 mV, pacing impedance 589 ohms, pacing threshold 0.5 V at 0.5 milliseconds. Ten-volt test was negative. RV lead was screwed into the RV septum. This was a Medtronic model #6935M, 55 cm in length, and serial #[id number]. R-waves were 6.2 mV, pacing impedance 649 ohms, pacing threshold 0.9 V at 0.5 milliseconds. Ten-volt test was negative. The LV lead was positioned in the lateral vein. While access into the coronary sinus was fairly expeditious, the patient had an anterior vein which was very diminutive and anteroseptal vein which was obviously not targeted, a posterolateral vein which was once again very diminutive and a middle cardiac vein. She had a large lateral vein, but the relationship of the lateral vein to the main coronary sinus body was quite tortuous and there was a loop at its origin. It took a considerable amount of time with multiple different sheaths and angioplasty wires and sub-selected sheaths, and we finally were able to pass an angioplasty wire into the lateral vein, following which the LV lead was placed. This was a Medtronic screw-in LV lead, model #4798, 78 cm in length, and serial #[id number]. The pacing impedance was 691 ohms, pacing threshold 1.7 V at 0.5 milliseconds at poles lead I and II. The patient tolerated the procedure well without any acute complications. RESULT: Successful biventricular ICD implantation for management of cardiomyopathy with wall motion abnormalities, likely sarcoidosis with AV block and ventricular fibrillation and syncope on presentation. No QT-prolonging drugs incriminated. LEFT UPPER EXTREMITY VENOGRAM: The left upper extremity venogram was performed prior to start of the biventricular ICD. Fifty mL of dye was injected in the left arm and a patent left subclavian and axillary vein was noted. DFT TESTING UNDER ANESTHESIA: Shock and T-wave protocol was used to induce ventricular fibrillation. This was adequately and appropriately detected at least sensitivity and successfully internally defibrillated with a 10-joule shock. Charge time was less 2.1 seconds. Shock impedance 62 ohms. No post-shock noise. RESULT: Successful biventricular ICD implantation. PLAN: Maximize beta blockers. Add spironolactone and if keep potassium greater than 4. Keep magnesium greater than 2. Continue oral amiodarone. MMODL / IJN: [id number] /
[2020-03-07 23:05] LABS: Glucose,Whole Blood 103 mg/dL (75-99)
[2020-03-07] MEDS: ACETAMINOPHEN TAB 325 MG TAB PO PRN (23:50)
[2020-03-08 04:48] LABS: Basophils % (A) 0 %; Eosinophils # (A) 0.1 k/uL (0-0.7); Eosinophils % (A) 2 %; HCT 36.8 % (34.0-46.0); Lymphocytes # (A) 1.6 k/uL (1.0-4.8); Lymphocytes % (A) 24 %; MCHC 32.6 g/dL (31.0-37.0); MCV 104.5 fL (80.0-100.0); Macrocytosis Slight; Mean Platelet Volume 9.6; Monocytes # (A) 0.6 k/uL (0-1.0); Monocytes % (A) 8 %; Neutrophils # (A) 4.4 k/uL (1.3-7.7); Neutrophils % (A) 64 %; Platelet Count 149 k/uL (150-450); RBC 3.52 m/uL (3.80-5.40); RDW 12.6 % (11.5-15.5); WBC 6.9 k/uL (3.8-10.6)
[2020-03-08 04:56] LABS: ALT 183 U/L (4-34); AST 39 U/L (14-36); African American GFR (CKD) >90 (>60 ml/min/1.73 sqM); Albumin 2.9 g/dL (3.5-5.0); Alkaline Phosphatase 210 U/L (38-126); Anion Gap 3 mmol/L; Blood Urea Nitrogen 8 mg/dL (7-17); Calcium 8.7 mg/dL (8.4-10.2); Carbon Dioxide 25 mmol/L (22-30); Chloride 109 mmol/L (98-107); Glucose 95 mg/dL (74-99); Non-African American GFR(CKD) >90 (>60 ml/min/1.73 sqM); Potassium 4.2 mmol/L (3.5-5.1); Sodium 137 mmol/L (137-145); Total Bilirubin 0.4 mg/dL (0.2-1.3); Total Protein 5.3 g/dL (6.3-8.2)
[2020-03-08] MEDS: LORazepam 1 MG TAB PO PRN ×5 (05:05→21:07)
[2020-03-08] MEDS: PANTOPRAZOLE 40 MG TABLET PO SCH (05:05)
--- NOTE | 2020-03-08 07:23 | XR ---
EXAMINATION TYPE: XR chest 2V DATE OF EXAM: 03/08/2020 COMPARISON: NONE HISTORY: Shortness of breath TECHNIQUE: Frontal and lateral views of the chest are obtained. FINDINGS: Scattered senescent parenchymal changes noted. Hyperinflation compatible with COPD. No evidence for infiltrate. Small left pleural effusions noted bilaterally. Heart size is stable. Pulmonary venous congestion noted without overt failure. Mediastinal structures are stable and grossly unremarkable. No evidence for hilar prominence. Degenerative changes dorsal spine. IMPRESSION: 1. Pulmonary venous congestion without overt failure. Small pleural effusions identified.
[2020-03-08] MEDS: NICOTINE 14MG/24HR PATCH TRANSDERM SCH (08:26)
[2020-03-08] MEDS: HEPARIN SODIUM,PORCINE 5,000 UNIT/ML 1 ML VIAL SQ SCH ×2 (08:27→19:53)
[2020-03-08] MEDS: SPIRONOLACTONE 25 MG TAB PO SCH (08:27)
[2020-03-08] MEDS: METOPROLOL SUCCINATE (ER) 50 MG TAB.ER.24H PO SCH (08:27)
[2020-03-08] MEDS: AMIODARONE 200 MG TAB PO SCH ×2 (08:27→19:54)
--- NOTE | 2020-03-08 09:19 | ECHOF ---
Referral Reason:TVP pericardial effusion MEASUREMENTS -------- HEIGHT: 0.0 cm WEIGHT: 0.0 kg BP: FINDINGS -------- Ventricularly paced rhythm. Limited Study. S/P PM There is no pericardial effusion. CONCLUSIONS -------- 1. Ventricularly paced rhythm. 2. Limited Study 3. There is no pericardial effusion. PLATER SUPERVISOR: Elisha Zaman RDCS
[2020-03-08] MEDS ORDERED: METOPROLOL SUCCINATE (ER) 25 MG TAB.ER.24H PO STA (11:16)
--- NOTE | 2020-03-08 11:21 | P.PN ---
Subjective Progress Note Date: 03/08/20 Principal diagnosis: Recurrent falls, ventricular tachycardia, high degree AV block This is a 64-year-old female transferred from [facility] last night. Patient presented with recurrent episodes of syncope 3. Apparently sustained some head injury, and CT of the head showed no significant abnormality. Apparently on presentation to the hospital, patient was noted to be in ventricular tachycardia with polymorphic V. tach. This was her initial presentation at [facility]. Patient was placed on amiodarone bolus and drip. And she was transferred to [facility]. EKG upon presentation showed advanced high degree AV block, with a 2-1 conduction and prolonged Q T-wave interval and T-wave inversion in anterior leads. She was also hypokalemic and hypomagnesemic. Both were corrected by the ER physician. And the patient was seen on consultation by cardiology, underwent a temporary pacemaker placement, and she underwent cardiac catheterization. While in the cardiac catheterization lab, patient had one episode of polymorphic ventricular tachycardia requiring shock. Her cardiac catheterization showed mild coronary artery disease, and the recommendation was only medical therapy and factor modification. Echocardiogram showed impaired LV function with ejection fraction of 40-45%. And there was also evidence of moderate mitral regurgitation and mild pulmonary hypertension. Right-sided pressure was estimated to be about 37. Patient was admitted to the ICU last night, and I was asked to see her on consultation. During my evaluation, patient was noted to be stable, her blood pressure is normal, she is fully paced, and in no distress. Noted to be slightly anxious. Chest x-ray showed mostly borderline cardiomegaly, no eviden ce of active pulmonary disease. She was already seen by people greeter morning, and the plan is to eventually schedule the patient for permanent pacemaker implantation in the next 24-48 hours. On 03/08/2020 patient seen in follow-up in intensive care unit, she is status post permanent pacemaker/AICD placement yesterday on 03/07/2020, today's postoperative day #1, no recurrence of ventricular tachycardia or arrhythmias, vital signs are stable, she is alert and oriented 3, she is in no acute dist ress, she is on room air, with a pulse ox of 95%, she is in sinus mechanism at a rate of 69-77, pressure stable, she is afebrile, IV fluids have been hep-locked, left upper chest incision is clean dry and intact, soft, no hematoma noted. She denies any shortness of breath, lung sounds reveal some coarse breath sounds and patient does have occasional cough, no phlegm production, today's labs have been reviewed, showing white blood cell, 6.9, hemoglobin is 12.0, sodium is 137, potassium is 4.2, chloride is 109, CO2 is 25, BUN is 8, creatinine 0.47. Patient has received 4 doses of Kefzol, she has been transitioned to oral amiodarone. Doing well, she is anticipated to be transferred out of the intensive care unit today to [facility] care Objective - Vital Signs Vital signs: Vital Signs Temp 97.9 F 03/08/20 04:00 Pulse 69 03/08/20 11:00 Resp 22 03/08/20 11:00 BP 134/63 03/08/20 11:00 Pulse Ox 95 03/08/20 08:00 Intake & Output 03/07/20 03/08/20 03/08/20 18:59 06:59 18:59 Intake Total 240 200 Output Total 700 1150 900 Balance -460 -950 -900 Weight 51 kg Intake: IV 240 200 Sodium Chloride 0.9% 140 200 ceFAZolin 2 gm In Sodium 50 Chloride 0.9% 50 ml @ 100 mls/hr IVPB ONCE ONE Rx# :[id number] Output: Urine 700 1150 900 Other: # Voids 0 0 1 - Exam GENERAL EXAM: Alert, very pleasant, 64-year-old thin pale-looking female, on room air, with pulse ox of 95% comfortable in no apparent distress. HEAD: Normocephalic/atraumatic. EYES: Normal reaction of pupils, equal size. Conjunctiva pink, sclera white. NOSE: Clear with pink turbinates. THROAT: No erythema or exudates. NECK: No masses, no JVD, no thyroid enlargement, no adenopathy. CHEST: No chest wall deformity. Symmetrical expansion. Left upper chest incision is covered with a postsurgical dressing status post permanent pacemaker/AICD insertion, site is clean dry and intact, no hematoma LUNGS: Equal air entry with no crackles, wheeze, rhonchi or dullness. CVS: Regular rate and rhythm, normal S1 and S2, no gallops, no murmurs, no rubs ABDOMEN: Soft, nontender. No hepatosplenomegaly, normal bowel sounds, no guarding or rigidity. EXTREMITIES: No clubbing, no edema, no cyanosis, 2+ pulses and upper and lower extremities. MUSCULOSKELETAL: Muscle strength and tone normal. SPINE: No scoliosis or deformity SKIN: No rashes CENTRAL NERVOUS SYSTEM: Alert and oriented -3. No focal deficits, tone is normal in all 4 extremities. PSYCHIATRIC: Alert and oriented -3. Appropriate affect. Intact judgment and insight. - Labs CBC & Chem 7: 03/08/20 03:48 03/08/20 03:48 Labs: Abnormal Lab Results - Last 24 Hours (Table) 03/07/20 03/08/20 03/08/20 Range/Units 23:03 03:48 03:48 RBC 3.52 L (3.80-5.40) m/uL MCV 104.5 H (80.0-100.0) fL Plt Count 149 L (150-450) k/uL Chloride 109 H (98-107) mmol/L Creatinine 0.47 L (0.52-1.04) mg/dL POC Glucose (mg/dL) 103 H (75-99) mg/dL AST 39 H (14-36) U/L ALT 183 H (4-34) U/L Alkaline Phosphatase 210 H (38-126) U/L Total Protein 5.3 L (6.3-8.2) g/dL Albumin 2.9 L (3.5-5.0) g/dL Assessment and Plan Plan: Assessment: #1. Recurrent syncope secondary to polymorphic ventricular tachycardia/[place] #2. Hypokalemia and hypomagnesemia possibly contributing to her ventricular tachycardia #3. Mild coronary artery disease #4. High degree AV block, requiring placement of temporary venous pacemaker followed by placement of permanent biventricular pacemaker/ICD, postoperative day 1 #5. Cardiomyopathy, with ejection fraction of 40-45% #6. Suspected underlying COPD based on her history of smoking and appearance of hyperinflation of both lungs seen and chest x-ray #7. Generalized anxiety disorder Plan: Patient is doing well, no acute events overnight, this is postoperative day 1 status post biventricular pacemaker/ICD insertion, no recurrence of arrhythmia, cardiology is following, no shortness of breath, increase activity as tolerated, patient is stable to go out of intensive care unit today to 3 S. selective care. Patient will probably need to follow-up with the pulmonology diagnosis of underlying COPD after discharge. Does have some occasional cough and mild congestion, no acute distress, she is on room air, continue with albuterol on as-needed basis I performed a history & physical examination of the patient and discussed their management with my nurse practitioner, Anusha Fallon. I reviewed the nurse practitioner's note and agree with the documented findings and plan of care. Lung sounds are positive for a few scattered rhonchi. The findings and the impression was discussed with the patient. I attest to the documentation by the nurse practitioner. Time with Patient: Less than 30
--- NOTE | 2020-03-08 12:30 | P.PN ---
Subjective This is Willa Guillen PA-C scribing on behalf of Dr. Aguero The patient was interviewed and examined by Dr. Aguero HPI/interval history Patient is a 64-year-old female who was transferred from [facility]. She presented there with syncope. EKG upon presentation showed advanced heart block, left bundle branch block, and prolonged QT interval. He had an episode of torsades. She was given IV amiodarone and transferred to [facility]. While awaiting catheterization, she had another episode of torsades requiring shock. She underwent cardiac catheterization showing mild CAD and calcification of the coronary arteries. She had a temporary pacemaker placed. Yesterday she underwent a successful implantation of a biventricular ICD. She is doing well postprocedure. She has not had any further arrhythmias. EXAMINATION Patient is afebrile, pulse in the 60s, respirations 22, blood pressure 134/63, oxygen saturation 95% on room air Dr. Aguero examined the patient Patient is in no acute distress Lungs are clear to auscultation bilaterally Heart is regular, no audible murmurs Dressing clean dry and intact, minimal bruising REVIEW OF LABS, ECG WBC 6.9, hemoglobin 12.0, platelets 149, potassium 4.2, BUN 8, creatinine 0.47 AST 39, ALT 183 Echocardiogram shows EF 40-45%, mid josefina-septal hypokinesis, apical inferior hypokinesis, apical septal hypokinesis, apical hypokinesis, RV moderately enlarged, moderate MR IMPRESSION / ASSESSMENT: # Multiple episodes of syncope, multiple episodes of torsades, one requiring a shock, status post implantation of biventricular ICD # Advanced heart block, # Left bundle branch block # Cardiomyopathy with wall motion abnormalities, EF 40-45%, 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 continue to monitor CMP Objective - Vital Signs Vital signs: Vital Signs Temp 97.9 F 03/08/20 04:00 Pulse 69 03/08/20 11:00 Resp 22 03/08/20 11:00 BP 134/63 03/08/20 11:00 Pulse Ox 95 05/05/20 08:00 Intake & Output 03/07/20 03/08/20 03/08/20 18:59 06:59 18:59 Intake Total 240 200 Output Total 700 1150 900 Balance -460 950 900 Weight 51 kg Intake: IV 240 200 Sodium Chloride 0.9% 140 200 ceFAZolin 2 gm In Sodium 50 Chloride 0.9% 50 ml @ 100 mls/hr IVPB ONCE ONE Rx# :[id number] Output: Urine 700 1150 900 Other: # Voids 0 0 1 - Labs CBC & Chem 7: 03/08/20 03:48 03/08/20 03:48 Labs: Abnormal Lab Results - Last 24 Hours (Table) 03/07/20 03/08/20 03/08/20 Range/Units 23:03 03:48 03:48 RBC 3.52 L (3.80-5.40) m/uL MCV 104.5 H (80.0-100.0) fL Plt Count 149 L (150-450) k/uL Chloride 109 H (98-107) mmol/L Creatinine 0.47 L (0.52-1.04) mg/dL POC Glucose (mg/dL) 103 H (75-99) mg/dL AST 39 H (14-36) U/L ALT 183 H (4-34) U/L Alkaline Phosphatase 210 H (38-126) U/L Total Protein 5.3 L (6.3-8.2) g/dL Albumin 2.9 L (3.5-5.0) g/dL
--- NOTE | 2020-03-08 13:03 | P.PN ---
Subjective 64-year-old cousin female was admitted after syncopal episode found to be in V. tach which is torsades secondary to hypomagnesemia which was replaced and patient had a pacemaker later. Patient had an EF of 40-45% patient is presently euvolemic. Patient is otherwise clinically doing well. Patient probably will be discharged tomorrow Constitutional: Denied any fatigue denied any fever. Cardio vascular: denied any chest pain, palpitations Gastrointestinal denied any nausea vomiting Pulmonary: Denied any shortness of breath cough Neurologic denied any new focal deficits All inpatient medications were reviewed and appropriate changes in these medications as dictated in the interval history and assessment and plan. Objective - Vital Signs Vital signs: Vital Signs Temp 98 F 03/08/20 12:00 Pulse 69 03/08/20 12:00 Resp 18 03/08/20 12:00 BP 129/64 03/08/20 12:00 Pulse Ox 95 03/08/20 12:00 Intake & Output 03/07/20 03/08/20 03/08/20 18:59 06:59 18:59 Intake Total 240 200 50 Output Total 700 1150 1200 Balance -460 -950 -1150 Weight 51 kg Intake: IV 240 200 50 Sodium Chloride 0.9% 140 200 ceFAZolin 2 gm In Sodium 50 Chloride 0.9% 50 ml @ 100 mls/hr IVPB ONCE ONE Rx# :[id number] ceFAZolin 2 gm In Sodium 50 Chloride 0.9% 50 ml @ 100 mls/hr IVPB Q6H [facility] Rx#: [id number] Output: Urine 700 1150 1200 Other: # Voids 0 0 1 - Exam PHYSICAL EXAMINATION: GENERAL: The patient is alert and oriented x3, not in any acute distress. Well developed, well nourished. HEENT: Pupils are round and equally reacting to light. EOMI. No scleral icterus. No conjunctival pallor. Normocephalic, atraumatic. No pharyngeal erythema. No thyromegaly. CARDIOVASCULAR: S1 and S2 present. No murmurs, rubs, or gallops. PULMONARY: Chest is clear to auscultation, no wheezing or crackles. ABDOMEN: Soft, nontender, nondistended, normoactive bowel sounds. No palpable organomegaly. MUSCULOSKELETAL: No joint swelling or deformity. EXTREMITIES: No cyanosis, clubbing, or pedal edema. NEUROLOGICAL: Gross neurological examination did not reveal any focal deficits. SKIN: No rashes. - Labs CBC & Chem 7: 03/08/20 03:48 03/08/20 03:48 Labs: Abnormal Lab Results - Last 24 Hours (Table) 03/07/20 03/08/20 03/08/20 Range/Units 23:03 03:48 03:48 RBC 3.52 L (3.80-5.40) m/uL MCV 104.5 H (80.0-100.0) fL Plt Count 149 L (150-450) k/uL Chloride 109 H (98-107) mmol/L Creatinine 0.47 L (0.52-1.04) mg/dL POC Glucose (mg/dL) 103 H (75-99) mg/dL AST 39 H (14-36) U/L ALT 183 H (4-34) U/L Alkaline Phosphatase 210 H (38-126) U/L Total Protein 5.3 L (6.3-8.2) g/dL Albumin 2.9 L (3.5-5.0) g/dL Assessment and Plan Plan: 1 syncope: Believed to be secondary to polymorphic V. tach O2 or torsades, secondary to hypomagnesemiawhich was corrected normal magnesium now -Carotid disease -Can start failure chronic systolic dysfunction without any acute exacerbation patient is euvolemic here for for on 40-45% -COPD without any acute exacerbation -Anxiety disorder -Degree AV block for which patient is a pacemaker at this time along with the ICD Patient probably will be discharged tomorrow
--- NOTE | 2020-03-08 13:27 | P.PN ---
Subjective Progress Note Date: 03/08/20 Principal diagnosis: Elevated liver enzymes Patient seen lying in bed tolerating her diet. No nausea or vomiting. No complaint of abdominal pain at this time. Objective - Vital Signs Vital signs: Vital Signs Temp 97.9 F 03/08/20 04:00 Pulse 69 03/08/20 11:00 Resp 22 03/08/20 11:00 BP 134/63 03/08/20 11:00 Pulse Ox 95 03/08/20 08:00 Intake & Output 03/07/20 03/08/20 03/08/20 18:59 06:59 18:59 Intake Total 240 200 Output Total 700 1150 900 Balance -460 -950 -900 Weight 51 kg Intake: IV 240 200 Sodium Chloride 0.9% 140 200 ceFAZolin 2 gm In Sodium 50 Chloride 0.9% 50 ml @ 100 mls/hr IVPB ONCE ONE Rx# :[id number] Output: Urine 700 1150 900 Other: # Voids 0 0 1 - Exam On physical examination, patient appears comfortable in no apparent distress. HEAD: Normocephalic, atraumatic. EYES: No scleral icterus. No conjunctival injection. MOUTH: No lesions, tongue midline. NECK: Trachea midline, no gross abnormalities. ABDOMEN: Soft, thin. Bowel sounds are positive. No organomegaly. No guarding or rigidity. EXTREMITIES: No pedal edema. SKIN: No rashes, no jaundice. NEUROLOGIC: Alert and oriented x3. No focal deficits. - Labs CBC & Chem 7: 03/08/20 03:48 03/08/20 03:48 Labs: Abnormal Lab Results - Last 24 Hours (Table) 03/07/20 03/08/20 03/08/20 Range/Units 23:03 03:48 03:48 RBC 3.52 L (3.80-5.40) m/uL MCV 104.5 H (80.0-100.0) fL Plt Count 149 L (150-450) k/uL Chloride 109 H (98-107) mmol/L Creatinine 0.47 L (0.52-1.04) mg/dL POC Glucose (mg/dL) 103 H (75-99) mg/dL AST 39 H (14-36) U/L ALT 183 H (4-34) U/L Alkaline Phosphatase 210 H (38-126) U/L Total Protein 5.3 L (6.3-8.2) g/dL Albumin 2.9 L (3.5-5.0) g/dL Assessment and Plan (1) Elevated liver enzymes Narrative/Plan: 64-year-old female transferred to [facility] on after initially presenting with complaints of syncope found to have QT prolongation, left bundle-branch block with noncritical coronary artery disease the patient had external pacemaker placed and is currently scheduled for biventricular ICD placement. Patient was found to have per solids on presentation. Currently she is denying any acute complaints. She was found to have a predominantly hepatoce llular pattern of elevation of her liver enzymes improved today with total bilirubin 0.3, alkaline phosphatase 231, AST 76 and ALTs 347. Ultrasound of the abdomen unremarkable. No significant history of liver disease or high risk behavior. Suspicion is for elevation in liver enzymes related to coronary event. Continue to trend liver enzymes. At this time ultrasound of the abdomen reviewed and viral hepatitis panel negative. Can consider full serology if liver enzymes do not improve. Current Visit: Yes Status: Acute Code(s): R74.8 - ABNORMAL LEVELS OF OTHER SERUM ENZYMES SNOMED Code(s): 532865187 Plan: Supportive care Okay for diet from GI standpoint Continue cardiac management Avoid hepatotoxic medications Continue to trend CBC, CMP Viral hepatitis panel negative Thank you for allowing us to participate in the care of the patient
--- NOTE | 2020-03-08 15:39 | CDI ---
Documentation Clarification Form Date: 03/08/2020 03:22:53 PM From: Jannette Genao CCS, CCDS Admit Date: 03/05/2020 04:00:00 PM Patient Name: Ad Doherty Visit Number: [id number] Discharge Date: ATTENTION: The Clinical Documentation Specialists (CDI) and [facility] Coding Staff appreciate your assistance in clarifying documentation. Please respond to the clarification below the line at the bottom and electronically sign. The CDI & [facility] Coding staff will review the response and follow-up if needed. Please note: Queries are made part of the Legal Health Record. If you have any questions, please contact the author of this message via ITS. Dr. 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 History/Risk Factors: Recurrent falls, Anxiety, Panic Disorder, Nicotine dependence. Clinical indicators: Presented as a transfer from [facility] on 03/05 after having syncopal episodes, possibly hit her head & then had an episode of V tach, started IV Amiodarone. Underwent a heart catheterization ON 03/05 which showed mild CAD, subsequently a Biventricular ICD for 2nd degree heart block ON 03/07. ECHO 03/07: Impaired LV function with EF 40-45%, evidence of moderate mitral regurgitation & mild pulmonary hypertension. RAD: CXR 03/06: Borderline cardiomegaly. Treatment: Arrived on Amiodarone drip. 03/05: IV Mag Sulfate, IV Dilaudid, po Ativan. Heart Catheterization & Biventricular ICD as above. In your professional opinion, can you please clarify the type of cardiomyopathy and underlying cause if known? Obstructive Hypertrophic Non-Obstructive Hypertrophic Restrictive/Constrictive Ischemic Ventricular Other, please specify Unable to determine (Last Revision: August 2017) MTDD
[2020-03-08] MEDS: LOSARTAN 25 MG TAB PO SCH (17:28)
[2020-03-09] MEDS: LORazepam 1 MG TAB PO PRN ×3 (03:17→09:59)
[2020-03-09 04:36] LABS: Basophils % (A) 0 %; Eosinophils # (A) 0.1 k/uL (0-0.7); Eosinophils % (A) 1 %; HCT 36.3 % (34.0-46.0); HGB 11.9 gm/dL (11.4-16.0); Lymphocytes # (A) 1.5 k/uL (1.0-4.8); Lymphocytes % (A) 21 %; MCH 33.2 pg (25.0-35.0); MCHC 32.6 g/dL (31.0-37.0); MCV 101.7 fL (80.0-100.0); Monocytes # (A) 0.6 k/uL (0-1.0); Monocytes % (A) 9 %; Neutrophils # (A) 4.8 k/uL (1.3-7.7); Neutrophils % (A) 65 %; Platelet Count 130 k/uL (150-450); RBC 3.57 m/uL (3.80-5.40); RDW 12.5 % (11.5-15.5); WBC 7.3 k/uL (3.8-10.6)
[2020-03-09 04:48] LABS: ALT 111 U/L (4-34); AST 47 U/L (14-36); African American GFR (CKD) >90 (>60 ml/min/1.73 sqM); Albumin 3.2 g/dL (3.5-5.0); Alkaline Phosphatase 268 U/L (38-126); Anion Gap 4 mmol/L; Blood Urea Nitrogen 9 mg/dL (7-17); Calcium 8.9 mg/dL (8.4-10.2); Carbon Dioxide 27 mmol/L (22-30); Chloride 107 mmol/L (98-107); Glucose 113 mg/dL (74-99); Non-African American GFR(CKD) >90 (>60 ml/min/1.73 sqM); Potassium 3.6 mmol/L (3.5-5.1); Sodium 138 mmol/L (137-145); Total Bilirubin 0.4 mg/dL (0.2-1.3); Total Protein 5.7 g/dL (6.3-8.2)
[2020-03-09] MEDS ORDERED: POTASSIUM CHLORIDE ER 20 MEQ TAB.ER PO SCH (06:00)
[2020-03-09] MEDS: PANTOPRAZOLE 40 MG TABLET PO SCH (06:35)
[2020-03-09] MEDS: LOSARTAN 25 MG TAB PO SCH (07:55)
[2020-03-09] MEDS: NICOTINE 14MG/24HR PATCH TRANSDERM SCH (07:55)
[2020-03-09] MEDS: SPIRONOLACTONE 25 MG TAB PO SCH (07:56)
[2020-03-09] MEDS: AMIODARONE 200 MG TAB PO SCH (07:56)
[2020-03-09] MEDS: HEPARIN SODIUM,PORCINE 5,000 UNIT/ML 1 ML VIAL SQ SCH (07:56)
[2020-03-09 08:13] VITALS: BP 111/59; PULSE 89; RESP 22; TEMP 98.3
--- NOTE | 2020-03-09 08:52 | P.PN ---
Subjective Progress Note Date: 03/09/20 Principal diagnosis: Recurrent falls, ventricular tachycardia, high degree AV block This is a 64-year-old female transferred from [facility] last night. Patient presented with recurrent episodes of syncope 3. Apparently sustained some head injury, and CT of the head showed no significant abnormality. Apparently on presentation to the hospital, patient was noted to be in ventricular tachycardia with polymorphic V. tach. This was her initial presentation at [facility]. Patient was placed on amiodarone bolus and drip. And she was transferred to [facility]. EKG upon presentation showed advanced high degree AV block, with a 2-1 conduction and prolonged Q T-wave interval and T-wave inversion in anterior leads. She was also hypokalemic and hypomagnesemic. Both were corrected by the ER physician. And the patient was seen on consultation by cardiology, underwent a temporary pacemaker placement, and she underwent cardiac catheterization. While in the cardiac catheterization lab, patient had one episode of polymorphic ventricular tachycardia requiring shock. Her cardiac catheterization showed mild coronary artery disease, and the recommendation was only medical therapy and factor modification. Echocardiogram showed impaired LV function with ejection fraction of 40-45%. And there was also evidence of moderate mitral regurgitation and mild pulmonary hypertension. Right-sided pressure was estimated to be about 37. Patient was admitted to the ICU last night, and I was asked to see her on consultation. During my evaluation, patient was noted to be stable, her blood pressure is normal, she is fully paced, and in no distress. Noted to be slightly anxious. Chest x-ray showed mostly borderline cardiomegaly, no eviden ce of active pulmonary disease. She was already seen by [employer] mill operator morning, and the plan is to eventually schedule the patient for permanent pacemaker implantation in the next 24-48 hours. On 03/08/2020 patient seen in follow-up in intensive care unit, she is status post permanent pacemaker/AICD placement yesterday on 03/07/2020, today's postoperative day #1, no recurrence of ventricular tachycardia or arrhythmias, vital signs are stable, she is alert and oriented 3, she is in no acute dist ress, she is on room air, with a pulse ox of 95%, she is in sinus mechanism at a rate of 69-77, pressure stable, she is afebrile, IV fluids have been hep-locked, left upper chest incision is clean dry and intact, soft, no hematoma noted. She denies any shortness of breath, lung sounds reveal some coarse breath sounds and patient does have occasional cough, no phlegm production, today's labs have been reviewed, showing white blood cell, 6.9, hemoglobin is 12.0, sodium is 137, potassium is 4.2, chloride is 109, CO2 is 25, BUN is 8, creatinine 0.47. Patient has received 4 doses of Kefzol, she has been transitioned to oral amiodarone. Doing well, she is anticipated to be transferred out of the intensive care unit today to [facility] care On 03/09/2020 patient seen in follow-up in the intensive care unit, today is postoperative day 2 status post permanent pacemaker/AICD placement. no acute complaints, no acute events overnight, no shortness of breath, hemodynamically stable, no episodes of arrhythmias, today's labs have been reviewed showing liquid silk on a 7.3, hemoglobin is 11.9, electrolytes were within normal limits, B1 is 9 creatinine 0.40. Fernández catheter has been removed, patient is voiding she is complaining of some urinary incontinence. No other issues overnight,room air pulse ox is 94% Objective - Vital Signs Vital signs: Vital Signs Temp 98.3 F 03/09/20 08:00 Pulse 89 03/09/20 08:00 Resp 22 03/09/20 08:00 BP 111/59 03/09/20 08:00 Pulse Ox 94 L 03/09/20 08:00 Intake & Output 03/08/20 03/09/20 03/09/20 18:59 06:59 18:59 Intake Total 50 Output Total 2450 1500 Balance -2400 -1500 Intake: IV 50 ceFAZolin 2 gm In Sodium 50 Chloride 0.9% 50 ml @ 100 mls/hr IVPB Q6H [facility] Rx#: [id number] Output: Urine 2450 1500 Other: Voiding Method Bedpan Toilet Bedpan # Voids 1 - Exam GENERAL EXAM: Alert, very pleasant, 64-year-old thin pale-looking female, on room air, with pulse ox of 9% comfortable in no apparent distress. HEAD: Normocephalic/atraumatic. EYES: Normal reaction of pupils, equal size. Conjunctiva pink, sclera white. NOSE: Clear with pink turbinates. THROAT: No erythema or exudates. NECK: No masses, no JVD, no thyroid enlargement, no adenopathy. CHEST: No chest wall deformity. Symmetrical expansion. Left upper chest incision is covered with a postsurgical dressing status post permanent pacemaker/AICD insertion, site is clean dry and intact, no hematoma LUNGS: Equal air entry with no crackles, wheeze, rhonchi or dullness. CVS: Regular rate and rhythm, normal S1 and S2, no gallops, no murmurs, no rubs ABDOMEN: Soft, nontender. No hepatosplenomegaly, normal bowel sounds, no guarding or rigidity. EXTREMITIES: No clubbing, no edema, no cyanosis, 2+ pulses and upper and lower extremities. MUSCULOSKELETAL: Muscle strength and tone normal. SPINE: No scoliosis or deformity SKIN: No rashes CENTRAL NERVOUS SYSTEM: Alert and oriented -3. No focal deficits, tone is normal in all 4 extremities. PSYCHIATRIC: Alert and oriented -3. Appropriate affect. Intact judgment and insight. - Labs CBC & Chem 7: 03/09/20 04:03 03/09/20 04:03 Labs: Abnormal Lab Results - Last 24 Hours (Table) 03/09/20 03/09/20 Range/Units 04:03 04:03 RBC 3.57 L (3.80-5.40) m/uL MCV 101.7 H (80.0-100.0) fL Plt Count 130 L (150-450) k/uL Creatinine 0.40 L (0.52-1.04) mg/dL Glucose 113 H (74-99) mg/dL AST 47 H (14-36) U/L ALT 111 H (4-34) U/L Alkaline Phosphatase 268 H (38-126) U/L Total Protein 5.7 L (6.3-8.2) g/dL Albumin 3.2 L (3.5-5.0) g/dL Assessment and Plan Plan: Assessment: #1. Recurrent syncope secondary to polymorphic ventricular tachycardia/[place] #2. Hypokalemia and hypomagnesemia possibly contributing to her ventricular tachycardia #3. Mild coronary artery disease #4. High degree AV block, requiring placement of temporary venous pacemaker followed by placement of permanent biventricular pacemaker/ICD, postoperative day #5. Cardiomyopathy, with ejection fraction of 40-45% #6. Suspected underlying COPD based on her history of smoking and appearance of hyperinflation of both lungs seen and chest x-ray #7. Generalized anxiety disorder Plan: Patient is doing well, increase activity as tolerated, no acute events ov ernight, no episodes of arrhythmia, no complaints of shortness of breath, she remains on room air. Anticipate discharge home today I performed a history & physical examination of the patient and discussed their management with my nurse practitioner, Anusha Fallon. I reviewed the nurse practitioner's note and agree with the documented findings and plan of care. Lung sounds are positive for a few scattered rhonchi. The findings and the impression was discussed with the patient. I attest to the documentation by the nurse practitioner. Time with Patient: Less than 30
[2020-03-09] MEDS ORDERED: METOPROLOL SUCCINATE (ER) 50 MG TAB.ER.24H PO SCH (09:00)
--- NOTE | 2020-03-09 11:52 | P.DS ---
Providers Date of admission: 03/05/20 16:00 Attending physician: Darshan Peacock Consults: 03/05/20 16:00 Consult Physician Urgent Consulting Provider: Dario Velasco Consult Reason/Comments: V. tach, syncope Do you want consulting provider notified?: Already Contacted 03/05/20 16:38 Consult Physician Urgent Consulting Provider: Donna Jackson Consult Reason/Comments: Critical care management Do you want consulting provider notified?: Yes 03/06/20 10:45 Consult Physician Routine Consulting Provider: Ann Ball Consult Reason/Comments: y Do you want consulting provider notified?: Yes Primary care physician: Stated None Hospital Course: 64-year-old cousin female was admitted after syncopal episode found to be in V. tach which is torsades secondary to hypomagnesemia which was replaced and patient had a pacemaker later. Patient had an EF of 40-45% patient is presently euvolemic. Patient is otherwise clinically doing well. Patient probably will be discharged tomorrow 03/09/2020 patient is clinically doing well overnight events patient will be discharged today PHYSICAL EXAMINATION: GENERAL: The patient is alert and oriented x3, not in any acute distress. Well developed, well nourished. HEENT: Pupils are round and equally reacting to light. EOMI. No scleral icterus. No conjunctival pallor. Normocephalic, atraumatic. No pharyngeal erythema. No thyromegaly. CARDIOVASCULAR: S1 and S2 present. No murmurs, rubs, or gallops. PULMONARY: Chest is clear to auscultation, no wheezing or crackles. ABDOMEN: Soft, nontender, nondistended, normoactive bowel sounds. No palpable organomegaly. MUSCULOSKELETAL: No joint swelling or deformity. EXTREMITIES: No cyanosis, clubbing, or pedal edema. NEUROLOGICAL: Gross neurological examination did not reveal any focal deficits. SKIN: No rashes. Assessment and Plan Plan: 1 syncope: Believed to be secondary to polymorphic V. tach O2 or torsades, secondary to hypomagnesemia which was corrected normal magnesium now -Chronic artery disease -Congestive heart failure chronic systolic dysfunction without any acute exacerbation patient is euvolemic here for for on 40-45% -COPD without any acute exacerbation -Anxiety disorder -Degree AV block for which patient is a pacemaker at this time along with the ICD Plan - Discharge Summary Discharge Rx Participant: No New Discharge Prescriptions: New Spironolactone [Aldactone] 25 mg PO DAILY #30 tab Amiodarone [Cordarone] 200 mg PO BID #60 tab Losartan [Cozaar] 25 mg PO DAILY #30 tab Metoprolol Succinate (ER) [Toprol XL] 75 mg PO DAILY #30 tab.er.24h Continue Acetaminophen Tab [Tylenol] 1,000 mg PO Q6HR PRN PRN Reason: Fever And/ Or Pain LORazepam [Ativan] 1 mg PO Q4H PRN PRN Reason: Anxiety Discharge Medication List Acetaminophen Tab [Tylenol] 1,000 mg PO Q6HR PRN 03/05/20 [History] LORazepam [Ativan] 1 mg PO Q4H PRN 03/05/20 [History] Amiodarone [Cordarone] 200 mg PO BID #60 tab 03/08/20 [Rx] Losartan [Cozaar] 25 mg PO DAILY #30 tab 03/08/20 [Rx] Metoprolol Succinate (ER) [Toprol XL] 75 mg PO DAILY #30 tab.er.24h 03/08/20 [Rx] Spironolactone [Aldactone] 25 mg PO DAILY #30 tab 03/08/20 [Rx] Follow up Appointment(s)/Referral(s): Gerardo Aguero MD [STAFF PHYSICIAN] - 03/14/20 10:30 am Akshat Alberto MD [REFERRING] - 3 Days Activity/Diet/Wound Care/Special Instructions: PATIENT EDUCATION MATERIAL Instructions following a heart rhythm device implant. 1. Keep dressing DRY for 5 DAYS. You may cover the area with Saran or Cling Wrap, prior to a shower. 2. The dressing will be removed in the Device Clinic at [facility]. Absorbable sutures were used to close the wound. 3. Avoid raising the left arm above the shoulder level. 4 week restriction 4. Avoid arm movements, like backscratching, rubbing the head, or pulling on a cord. 4 weeks restriction 5. Gentle range of motion movements of the shoulder, closest to the incision should be performed to avoid a frozen shoulder. (Pendulum exercises of the shoulder) 6. The opposite arm may be used freely. 7. Avoid driving for 7 days. 8. Avoid activities such as golfing, swimming, weed whacking, lifting more than 10 pounds weight, bowling, gymnastics and weight training/lifting. (6 weeks restriction) 9. Activities such as wood chopping with an axe, pull-ups in the gymnasium, power lifting, arc-welding, being close to home induction cooktops will always be a problem. 10. Arm sling is only a reminder not to raise the arm above the head. You do not need to keep the arm completely immobilized. Your free to move the arm and use it and for normal activities. In case of any problems, please call [facility], [place], @ [phone], Attention: Device Clinic Device clinic follow-up in 5 days Follow-up with primary terrazzo mechanic helper in 2-3 months Avoid all herbal medications and [id number] medications and naturo-pathic medications Discharge Disposition: HOME SELF-CARE
--- NOTE | 2020-03-09 12:04 | P.PN ---
Subjective This is Willa Guillen PA-C scribing on behalf of Dr. Aguero The patient was interviewed and examined by Dr. Aguero HPI/interval history Patient is a 64-year-old female who was transferred from [facility]. She presented there with syncope. EKG upon presentation showed advanced heart block, left bundle branch block, and prolonged QT interval. He had an episode of torsades. She was given IV amiodarone and transferred to [facility]. While awaiting catheterization, she had another episode of torsades requiring shock. She underwent cardiac catheterization showing mild CAD and calcification of the coronary arteries. She underwent a successful implantation of a biventricular ICD. Yesterday we increased her metoprolol and she seems to have tolerated that well. She has not had any further arrhythmias. Denies any chest pain or shortness of breath. EXAMINATION Patient is afebrile, pulse in the 80s, respirations 20, blood pressure 111/59, oxygen saturation 94% on room air Dr. Aguero examined the patient Patient is in no acute distress Lungs are clear to auscultation bilaterally Heart is regular, no audible murmurs ICD site clean dry and intact REVIEW OF LABS, ECG CBC 7.3, hemoglobin 11.9, platelet 130, potassium 3.6, BUN 9, creatinine 0.4 AST 47, ALT 111, alkaline phosphatase 268 Echocardiogram shows EF 40-45%, mid josefina-septal hypokinesis, apical inferior hypokinesis, apical septal hypokinesis, apical hypokinesis, RV moderately enlarged, moderate MR IMPRESSION / ASSESSMENT: # Multiple episodes of syncope, multiple episodes of torsades, one requiring a shock, status post implantation of biventricular ICD # Advanced heart block # Left bundle branch block # Cardiomyopathy with wall motion abnormalities, EF 40-45%, 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 Gundlapalli in the device clinic in one week Objective - Vital Signs Vital signs: Vital Signs Temp 98.3 F 03/09/20 08:00 Pulse 89 03/09/20 08:00 Resp 22 03/09/20 08:00 BP 111/59 03/09/20 08:00 Pulse Ox 94 L 03/09/20 08:00 Intake & Output 03/08/20 03/09/20 03/09/20 18:59 06:59 18:59 Intake Total 50 Output Total 2450 1500 500 Balance -2400 -1500 -500 Intake: IV 50 ceFAZolin 2 gm In Sodium 50 Chloride 0.9% 50 ml @ 100 mls/hr IVPB Q6H [facility] Rx#: [id number] Output: Urine 2450 1500 500 Other: Voiding Method Bedpan Toilet Bedpan # Voids 1 - Labs CBC & Chem 7: 03/09/20 04:03 03/09/20 04:03 Labs: Abnormal Lab Results - Last 24 Hours (Table) 03/09/20 03/09/20 Range/Units 04:03 04:03 RBC 3.57 L (3.80-5.40) m/uL MCV 101.7 H (80.0-100.0) fL Plt Count 130 L (150-450) k/uL Creatinine 0.40 L (0.52-1.04) mg/dL Glucose 113 H (74-99) mg/dL AST 47 H (14-36) U/L ALT 111 H (4-34) U/L Alkaline Phosphatase 268 H (38-126) U/L Total Protein 5.7 L (6.3-8.2) g/dL Albumin 3.2 L (3.5-5.0) g/dL
--- NOTE | 2020-03-09 18:52 | P.PN ---
Subjective Progress Note Date: 03/09/20 Principal diagnosis: Elevated liver enzymes Patient seen lying in bed, no acute complaints. No abdominal pain, nausea or vomiting and she is tolerating her diet. She is asking for discharge. Objective - Vital Signs Vital signs: Vital Signs Temp 98.3 F 03/09/20 08:00 Pulse 89 03/09/20 08:00 Resp 22 03/09/20 08:00 BP 111/59 03/09/20 08:00 Pulse Ox 94 L 03/09/20 08:00 Intake & Output 03/08/20 03/09/20 03/09/20 18:59 06:59 18:59 Intake Total 50 Output Total 2450 1500 Balance -2400 -1500 Intake: IV 50 ceFAZolin 2 gm In Sodium 50 Chloride 0.9% 50 ml @ 100 mls/hr IVPB Q6H [facility] Rx#: [id number] Output: Urine 2450 1500 Other: Voiding Method Bedpan Toilet Bedpan # Voids 1 - Exam On physical examination, patient appears comfortable in no apparent distress. HEAD: Normocephalic, atraumatic. EYES: No scleral icterus. No conjunctival injection. MOUTH: No lesions, tongue midline. NECK: Trachea midline, no gross abnormalities. ABDOMEN: Soft, thin. Bowel sounds are positive. No organomegaly. No guarding or rigidity. EXTREMITIES: No pedal edema. SKIN: No rashes, no jaundice. NEUROLOGIC: Alert and oriented x3. No focal deficits. - Labs CBC & Chem 7: 03/09/20 04:03 03/09/20 04:03 Labs: Abnormal Lab Results - Last 24 Hours (Table) 03/09/20 03/09/20 Range/Units 04:03 04:03 RBC 3.57 L (3.80-5.40) m/uL MCV 101.7 H (80.0-100.0) fL Plt Count 130 L (150-450) k/uL Creatinine 0.40 L (0.52-1.04) mg/dL Glucose 113 H (74-99) mg/dL AST 47 H (14-36) U/L ALT 111 H (4-34) U/L Alkaline Phosphatase 268 H (38-126) U/L Total Protein 5.7 L (6.3-8.2) g/dL Albumin 3.2 L (3.5-5.0) g/dL Assessment and Plan (1) Elevated liver enzymes Narrative/Plan: 64-year-old female transferred to [facility] on after initially presenting with complaints of syncope found to have QT prolongation, left bundle-branch block with noncritical coronary artery disease the patient had external pacemaker placed and is currently scheduled for biventricular ICD placement. Patient was found to have per solids on presentation. Currently she is denying any acute complaints. She was found to have a predominantly hepatocellular pattern of elevation of her liver enzymes improved today with total bilirubin 0.3, alkaline phosphatase 231, AST 76 and ALTs 347. Ultrasound of the abdomen unremarkable. No significant history of liver disease or high risk behavior. Suspicion is for elevation in liver enzymes related to coronary event. Continue to trend liver enzymes. At this time ultrasound of the abdomen reviewed and viral hepatitis panel negative. Can consider full serology if live r enzymes do not improve. Status: Acute Code(s): R74.8 - ABNORMAL LEVELS OF OTHER SERUM ENZYMES SNOMED Code(s): 882689600 Plan: Supportive care Okay for diet from GI standpoint Continue cardiac management Avoid hepatotoxic medications Continue to trend CBC, CMP Viral hepatitis panel negative Thank you for allowing us to participate in the care of the patient
--- NOTE | 2020-03-11 09:29 | CDI ---
Documentation Clarification Form Date: 03/08/2020 03:22:00 PM From: Jannette Genao CCS, CCDS Admit Date: 03/05/2020 04:00:00 PM Patient Name: Ad Doherty Visit Number: [id number] Discharge Date: 03/09/2020 01:40:00 PM ATTENTION: The Clinical Documentation Specialists (CDI) and [facility]oding Staff appreciate your assistance in clarifying documentation. Please respond to the clarification below the line at the bottom and electronically sign. The CDI & [facility] staff will review the response and follow-up if needed. Please note: Queries are made part of the Legal Health Record. If you have any questions, please contact the author of this message via ITS. Dr. 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 History/Risk Factors: Recurrent falls, Anxiety, Panic Disorder, Nicotine dependence. Clinical indicators: Presented as a transfer from [facility] on 03/05 after having syncopal episodes, possibly hit her head & then had an episode of V tach, started IV Amiodarone. Underwent a heart catheterization ON 03/05 which showed mild CAD, subsequently a Biventricular ICD for 2nd degree heart block ON 03/07. ECHO 03/07: Impaired LV function with EF 40-45%, evidence of moderate mitral regurgitation & mild pulmonary hypertension. RAD: CXR 03/06: Borderline cardiomegaly. Treatment: Arrived on Amiodarone drip. 03/05: IV Mag Sulfate, IV Dilaudid, po Ativan. Heart Catheterization & Biventricular ICD as above. In your professional opinion, can you please clarify the type of cardiomyopathy and underlying cause if known? Obstructive Hypertrophic Non-Obstructive Hypertrophic Restrictive/Constrictive Ischemic Ventricular Other, please specify Unable to determine (Last Revision: August 2017) Nonischemic cardiomyopathy, unable to determine the exact cause at this time MTDD
== END 2020-03-09 13:40 | disposition home or self-care (01) | DRG 225 ==
LOC: EC 15:27 → 2SICU 16:00
PROVIDERS: ADMIT Hospitalist; ATTEND Hospitalist
PROC: 5A1213Z Performance of Cardiac Pacing, Intermittent (ICD-10-PCS; 2020-03-05)
PROC: B2111ZZ Fluoroscopy of Multiple Coronary Arteries using Low Osmolar Contrast (ICD-10-PCS; 2020-03-05 18:33)
PROC: 4A023N7 Measurement of Cardiac Sampling and Pressure, Left Heart, Percutaneous Approach (ICD-10-PCS; 2020-03-05 18:33)
PROC: 02HL3KZ Insertion of Defibrillator Lead into Left Ventricle, Percutaneous Approach (ICD-10-PCS; principal; 2020-03-07 15:35)
PROC: 02HK3KZ Insertion of Defibrillator Lead into Right Ventricle, Percutaneous Approach (ICD-10-PCS; principal; 2020-03-07 15:35)
PROC: 02H63KZ Insertion of Defibrillator Lead into Right Atrium, Percutaneous Approach (ICD-10-PCS; principal; 2020-03-07 15:35)
PROC: 0JH609Z Insertion of Cardiac Resynchronization Defibrillator Pulse Generator into Chest Subcutaneous Tissue and Fascia, Open Approach (ICD-10-PCS; principal; 2020-03-07 15:35)
DX: I44.2 Atrioventricular block, complete (principal); E44.1 Mild protein-calorie malnutrition; Z68.1 Body mass index [BMI] 19.9 or less, adult; I50.22 Chronic systolic (congestive) heart failure; I42.9 Cardiomyopathy, unspecified; F41.0 Panic disorder [episodic paroxysmal anxiety]; F17.200 Nicotine dependence, unspecified, uncomplicated; I47.2 Ventricular tachycardia; E87.6 Hypokalemia; R32 Unspecified urinary incontinence; F41.1 Generalized anxiety disorder; I27.20 Pulmonary hypertension, unspecified; I25.10 Atherosclerotic heart disease of native coronary artery without angina pectoris; E83.42 Hypomagnesemia; Z11.59 Encounter for screening for other viral diseases; D86.9 Sarcoidosis, unspecified; Z20.828 Contact with and (suspected) exposure to other viral communicable diseases; E87.8 Other disorders of electrolyte and fluid balance, not elsewhere classified; I34.0 Nonrheumatic mitral (valve) insufficiency; I44.7 Left bundle-branch block, unspecified; I51.4 Myocarditis, unspecified; J44.9 Chronic obstructive pulmonary disease, unspecified; K75.9 Inflammatory liver disease, unspecified; R29.6 Repeated falls; S09.90XA Unspecified injury of head, initial encounter; Z88.1 Allergy status to other antibiotic agents; Z88.2 Allergy status to sulfonamides
CPT/HCPCS: 33210; 33225; 33249; 71045; 71046; 76705; 80048; 80053; 80061; 80074; 80306; 81001; 82247; 83735; 84075; 84450; 84460; 84484; 85025; 87635; 93005; 93306; 93308; 93454; 93641; 96365; 99285

== ENCOUNTER 2020-04-06 06:29 | Emergency (ER) | payer BC ==
[2020-04-06 06:34] VITALS: TEMP 97.9
[2020-04-06] MEDS ORDERED: SODIUM CHLORIDE 0.9% 1,000 ML IV ONE ×2 (06:38→07:41)
[2020-04-06] MEDS ORDERED: LORazepam 2 MG/ML INJ IV STA (06:54)
[2020-04-06 07:02] LABS: Basophils % (A) 1 %; Eosinophils # (A) 0.2 k/uL (0-0.7); Eosinophils % (A) 3 %; HCT 47.6 % (34.0-46.0); Lymphocytes # (A) 3.1 k/uL (1.0-4.8); Lymphocytes % (A) 43 %; MCH 33.9 pg (25.0-35.0); MCHC 33.5 g/dL (31.0-37.0); MCV 101.3 fL (80.0-100.0); Mean Platelet Volume 7.6; Monocytes # (A) 0.5 k/uL (0-1.0); Monocytes % (A) 6 %; Neutrophils # (A) 3.2 k/uL (1.3-7.7); Neutrophils % (A) 45 %; Platelet Count 213 k/uL (150-450); RDW 12.2 % (11.5-15.5); WBC 7.2 k/uL (3.8-10.6)
[2020-04-06 07:13] LABS: ALT 36 U/L (4-34); AST 34 U/L (14-36); African American GFR (CKD) >90 (>60 ml/min/1.73 sqM); Albumin 4.5 g/dL (3.5-5.0); Alkaline Phosphatase 130 U/L (38-126); Anion Gap 14 mmol/L; Blood Urea Nitrogen 18 mg/dL (7-17); Calcium 9.8 mg/dL (8.4-10.2); Carbon Dioxide 20 mmol/L (22-30); Chloride 101 mmol/L (98-107); Glucose 135 mg/dL (74-99); Magnesium 1.8 mg/dL (1.6-2.3); Non-African American GFR(CKD) >90 (>60 ml/min/1.73 sqM); Phosphorus 2.5 mg/dL (2.5-4.5); Potassium 3.6 mmol/L (3.5-5.1); Sodium 135 mmol/L (137-145); Total Bilirubin 0.4 mg/dL (0.2-1.3); Total Protein 7.7 g/dL (6.3-8.2)
[2020-04-06 07:14] LABS: INR 0.9 (<1.2); Partial Thromboplastin Time 23.3 sec (22.0-30.0); Prothrombin Time 9.3 sec (9.0-12.0)
[2020-04-06 07:17] LABS: HGB 15.9 gm/dL (11.4-16.0)
[2020-04-06 07:28] LABS: Lactic Acid, Venous 4.3 mmol/L (0.7-2.0)
--- NOTE | 2020-04-06 07:30 | XR ---
EXAMINATION TYPE: XR chest 2V DATE OF EXAM: 04/06/2020 COMPARISON: Prior chest x-ray March 08, 2020. HISTORY: Palpitations. TECHNIQUE: Frontal and lateral views of the chest are obtained. FINDINGS: There is chronic emphysematous change with persistent tiny left pleural effusion no suspic ious focal airspace opacity or pneumothorax seen currently. The cardiac silhouette size remains with in normal limits with atherosclerotic aorta multi lead pacemaker/AICD. The osseous structures remai n demineralized. Right basilar nodularity presumed to correspond to patient's nipple. IMPRESSION: Chronic emphysematous change with tiny left pleural effusion. No suspicious focal infilt rate.
[2020-04-06] MEDS ORDERED: SODIUM CHLORIDE 0.9% 500 ML 500 ML IV ONE (07:41)
[2020-04-06 08:02] VITALS: RESP 18
[2020-04-06 08:11] LABS: Appearance,Urine Clear (Clear); Bilirubin,Urine Negative (Negative); Blood,Urine Negative (Negative); Color,Urine Light Yellow; Glucose,Urine (UA) Negative (Negative); Ketones,Urine Negative (Negative); Leukocyte Esterase,Urine Negative (Negative); Nitrite,Urine Negative (Negative); Protein,Urine Trace (Negative); Specific Gravity,Urine 1.006 (1.001-1.035); Urobilinogen,Urine <2.0 mg/dL (<2.0)
[2020-04-06 08:22] LABS: Amphetamine Screen,Urine Not Detected (NotDetected); Barbiturate Screen,Urine Not Detected (NotDetected); Benzodiazepines Screen,Urine Detected (NotDetected); Cocaine Screen,Urine Not Detected (NotDetected); Methadone Screen, Urine Not Detected (NotDetected); Opiate Screen,Urine Not Detected (NotDetected); Oxycodone Screen, Urine Not Detected (NotDetected); Phencyclidine Screen,Urine Not Detected (NotDetected); Tricyclic Antidepressant,Urine Not Detected (NotDetected); Urn Cannabinoid Scrn Not Detected (NotDetected)
--- NOTE | 2020-04-06 09:50 | ED ---
Recheck HPI - General Chief Complaint: Recheck/Abnormal Lab/Rx Stated Complaint: Palpitations Time Seen by Provider: 04/06/20 06:38 Source: patient Mode of arrival: ambulatory Limitations: no limitations - History of Present Illness Initial Comments: 64-year-old female wiht history of hypomagnesium, ventricular tachycardia s/p pacemaker placement presenting today for chief complaint of chest palpitations. Patient states that she feels like her heart was racing in the middle the night. She states she felt like she was going to she began very anxious. Patient denies any chest pain or pressure. She denies any significant shortness of breath however she states she is breathing rapidly. When this persisted she presented to the ER for evaluation. Patient denies pain with deep inspiration,hemoptysis. Denies fever, cough or other focalizing symptoms. Upon arrival patient is hyperventilating, appears anxious, HR elevated. - Related Data Home Medications Medication Instructions Recorded Confirmed Acetaminophen Tab [Tylenol] 1,000 mg PO Q6HR PRN 03/05/20 04/06/20 LORazepam [Ativan] 1 mg PO Q4H PRN 04/06/20 04/06/20 Metoprolol Succinate (ER) [Toprol 25 mg PO DAILY 04/06/20 04/06/20 Xl] Spironolactone 12.5 mg PO DAILY 04/06/20 04/06/20 Allergies Allergy/AdvReac Type Severity Reaction Status Date / Time azithromycin Allergy Unknown Verified 04/06/20 08:11 Sulfa (Sulfonamide Allergy Unknown Verified 04/06/20 08:11 Antibiotics) Review of Systems ROS Statement: Those systems with pertinent positive or pertinent negative responses have been documented in the HPI. ROS Other: All systems not noted in ROS Statement are negative. Past Medical History Past Medical History: No Reported History History of Any Multi-Drug Resistant Organisms: None Reported Past Surgical History: Pacemaker Additional Past Surgical History / Comment(s): Multiple ovarian surgeries. Past Psychological History: Anxiety, Panic Disorder Smoking Status: Current every day smoker Past Alcohol Use History: None Reported Past Drug Use History: None Reported - Past Family History Mother History Unknown: Yes Family Medical History: CVA/TIA Father History Unknown: Yes Family Medical History: Cancer General Exam - General Exam Comments Initial Comments: General: The patient is awake and alert, in no distress, and does not appear acutely ill. Eye: +3 mm pupils are equal, round and reactive to light, extra-ocular movements are intact. No nystagmus. There is normal conjunctiva bilaterally. No signs of icterus. Cardiovascular: There is a regular rate and rhythm. No murmur, rub or gallop is appreciated. Respiratory: Lungs are clear to auscultation, respirations are non-labored, breath sounds are equal. No wheezes, stridor, rales, or rhonchi. Gastrointestinal: Soft, non-distended, non-tender abdomen without masses or organomegaly noted. There is no rebound or guarding present. Musculoskeletal: Normal ROM, no tenderness. Strength 5/5. Sensation intact. Radial pulses equal bilaterally 2+. Neurological: A&O x 3. CN II-XII intact grossly, There are no obvious motor or sensory deficits. Coordination appears grossly intact. Speech is normal. Skin: Skin is warm and dry and no rashes or lesions are noted. No LE swelling, no calf pain. Psychiatric: Cooperative, appropriate mood & affect, normal judgment. Limitations: no limitations Course Vital Signs 04/06/20 04/06/20 04/06/20 06:32 07:00 07:30 Temperature 97.9 F Pulse Rate 102 H 91 81 Respiratory 28 H 18 18 Rate Blood Pressure 171/66 160/87 O2 Sat by Pulse 99 98 96 Oximetry 04/06/20 04/06/20 04/06/20 08:00 08:15 09:00 Temperature Pulse Rate 85 76 70 Respiratory 18 18 18 Rate Blood Pressure 119/67 125/55 O2 Sat by Pulse 97 95 Oximetry 04/06/20 09:30 Temperature Pulse Rate 70 Respiratory 18 Rate Blood Pressure 125/55 O2 Sat by Pulse Oximetry Medical Decision Making - Medical Decision Making 64 with history of anxiety/panic disorder presenting for evaluation of palpatations. Appears anxious/hyperventilating. [employer] device interrogated, noted 1 episode of atrial tachycardia. EKG paced, no acute findings. Labs reveal lactic acidosis suspected from hyperventilation, which is supported by CO2 levels low. Patient troponin (-). CXR small left pleural effusion. Patient HR normalized after ativan as well as lactic acid after fluids/ativan. Patient appears well on re-evaluation. Discussed case in detail with Dr. Landon who is agreeable to discharge with cardiology f/u. Pt states she has been taking metoprolol but her BP has been low/normal. Pt HR WNL, BP wihtin acceptable limits in the ER recommended discussing metoprolol and ensuring recording BP and HR prior to initiating treatment--if BP low recommended holding metoprolol dosing. Patient verbalized understanding - Lab Data Result diagrams: 04/06/20 06:50 04/06/20 06:50 Lab Results 04/06/20 04/06/20 04/06/20 Range/Units 06:50 06:50 06:50 WBC 7.2 (3.8-10.6) k/uL RBC 4.70 (3.80-5.40) m/uL Hgb 15.9 D (11.4-16.0) gm/dL Hct 47.6 H (34.0-46.0) % MCV 101.3 H (80.0-100.0) fL MCH 33.9 (25.0-35.0) pg MCHC 33.5 (31.0-37.0) g/dL RDW 12.2 (11.5-15.5) % Plt Count 213 (150-450) k/uL Neutrophils % 45 % Lymphocytes % 43 % Monocytes % 6 % Eosinophils % 3 % Basophils % 1 % Neutrophils # 3.2 (1.3-7.7) k/uL Lymphocytes # 3.1 (1.0-4.8) k/uL Monocytes # 0.5 (0-1.0) k/uL Eosinophils # 0.2 (0-0.7) k/uL Basophils # 0.0 (0-0.2) k/uL PT 9.3 (9.0-12.0) sec INR 0.9 (<1.2) APTT 23.3 (22.0-30.0) sec Sodium 135 L (137-145) mmol/L Potassium 3.6 (3.5-5.1) mmol/L Chloride 101 (98-107) mmol/L Carbon Dioxide 20 L (22-30) mmol/L Anion Gap 14 mmol/L BUN 18 H (7-17) mg/dL Creatinine 0.61 (0.52-1.04) mg/dL Est GFR (CKD-EPI)AfAm >90 (>60 ml/min/1.73 sqM) Est GFR (CKD-EPI)NonAf >90 (>60 ml/min/1.73 sqM) Glucose 135 H (74-99) mg/dL Lactic Ac Sepsis Rflx Plasma Lactic Acid Antelmo (0.7-2.0) mmol/L Calcium 9.8 (8.4-10.2) mg/dL Phosphorus 2.5 (2.5-4.5) mg/dL Magnesium 1.8 (1.6-2.3) mg/dL Total Bilirubin 0.4 (0.2-1.3) mg/dL AST 34 (14-36) U/L ALT 36 H (4-34) U/L Alkaline Phosphatase 130 H (38-126) U/L Ammonia (<30) umol/L Troponin I (0.000-0.034) ng/mL Total Protein 7.7 (6.3-8.2) g/dL Albumin 4.5 (3.5-5.0) g/dL Urine Color Urine Appearance (Clear) Urine pH (5.0-8.0) Ur Specific Conway (1.001-1.035) Urine Protein (Negative) Urine Glucose (UA) (Negative) Urine Ketones (Negative) Urine Blood (Negative) Urine Nitrite (Negative) Urine Bilirubin (Negative) Urine Urobilinogen (<2.0) mg/dL Ur Leukocyte Esterase (Negative) Urine Opiates Screen (NotDetected) Ur Oxycodone Screen (NotDetected) Urine Methadone Screen (NotDetected) Ur Propoxyphene Screen (NotDetected) Ur Barbiturates Screen (NotDetected) U Tricyclic Antidepress (NotDetected) Ur Phencyclidine Scrn (NotDetected) Ur Amphetamines Screen (NotDetected) U Methamphetamines Scrn (NotDetected) U Benzodiazepines Scrn (NotDetected) Urine Cocaine Screen (NotDetected) U Marijuana (THC) Screen (NotDetected) 04/06/20 04/06/20 04/06/20 Range/Units 06:50 06:50 07:32 WBC (3.8-10.6) k/uL RBC (3.80-5.40) m/uL Hgb (11.4-16.0) gm/dL Hct (34.0-46.0) % MCV (80.0-100.0) fL MCH (25.0-35.0) pg MCHC (31.0-37.0) g/dL RDW (11.5-15.5) % Plt Count (150-450) k/uL Neutrophils % % Lymphocytes % % Monocytes % % Eosinophils % % Basophils % % Neutrophils # (1.3-7.7) k/uL Lymphocytes # (1.0-4.8) k/uL Monocytes # (0-1.0) k/uL Eosinophils # (0-0.7) k/uL Basophils # (0-0.2) k/uL PT (9.0-12.0) sec INR (<1.2) APTT (22.0-30.0) sec Sodium (137-145) mmol/L Potassium (3.5-5.1) mmol/L Chloride (98-107) mmol/L Carbon Dioxide (22-30) mmol/L Anion Gap mmol/L BUN (7-17) mg/dL Creatinine (0.52-1.04) mg/dL Est GFR (CKD-EPI)AfAm (>60 ml/min/1.73 sqM) Est GFR (CKD-EPI)NonAf (>60 ml/min/1.73 sqM) Glucose (74-99) mg/dL Lactic Ac Sepsis Rflx Y Plasma Lactic Acid Antelmo 4.3 H* (0.7-2.0) mmol/L Calcium (8.4-10.2) mg/dL Phosphorus (2.5-4.5) mg/dL Magnesium (1.6-2.3) mg/dL Total Bilirubin (0.2-1.3) mg/dL AST (14-36) U/L ALT (4-34) U/L Alkaline Phosphatase (38-126) U/L Ammonia <9 (<30) umol/L Troponin I <0.012 (0.000-0.034) ng/mL Total Protein (6.3-8.2) g/dL Albumin (3.5-5.0) g/dL Urine Color Urine Appearance (Clear) Urine pH (5.0-8.0) Ur Specific Conway (1.001-1.035) Urine Protein (Negative) Urine Glucose (UA) (Negative) Urine Ketones (Negative) Urine Blood (Negative) Urine Nitrite (Negative) Urine Bilirubin (Negative) Urine Urobilinogen (<2.0) mg/dL Ur Leukocyte Esterase (Negative) Urine Opiates Screen (NotDetected) Ur Oxycodone Screen (NotDetected) Urine Methadone Screen (NotDetected) Ur Propoxyphene Screen (NotDetected) Ur Barbiturates Screen (NotDetected) U Tricyclic Antidepress (NotDetected) Ur Phencyclidine Scrn (NotDetected) Ur Amphetamines Screen (NotDetected) U Methamphetamines Scrn (NotDetected) U Benzodiazepines Scrn (NotDetected) Urine Cocaine Screen (NotDetected) U Marijuana (THC) Screen (NotDetected) 04/06/20 04/06/20 Range/Units 07:50 09:12 WBC (3.8-10.6) k/uL RBC (3.80-5.40) m/uL Hgb (11.4-16.0) gm/dL Hct (34.0-46.0) % MCV (80.0-100.0) fL MCH (25.0-35.0) pg MCHC (31.0-37.0) g/dL RDW (11.5-15.5) % Plt Count (150-450) k/uL Neutrophils % % Lymphocytes % % Monocytes % % Eosinophils % % Basophils % % Neutrophils # (1.3-7.7) k/uL Lymphocytes # (1.0-4.8) k/uL Monocytes # (0-1.0) k/uL Eosinophils # (0-0.7) k/uL Basophils # (0-0.2) k/uL PT (9.0-12.0) sec INR (<1.2) APTT (22.0-30.0) sec Sodium (137-145) mmol/L Potassium (3.5-5.1) mmol/L Chloride (98-107) mmol/L Carbon Dioxide (22-30) mmol/L Anion Gap mmol/L BUN (7-17) mg/dL Creatinine (0.52-1.04) mg/dL Est GFR (CKD-EPI)AfAm (>60 ml/min/1.73 sqM) Est GFR (CKD-EPI)NonAf (>60 ml/min/1.73 sqM) Glucose (74-99) mg/dL Lactic Ac Sepsis Rflx Plasma Lactic Acid Antelmo 1.1 (0.7-2.0) mmol/L Calcium (8.4-10.2) mg/dL Phosphorus (2.5-4.5) mg/dL Magnesium (1.6-2.3) mg/dL Total Bilirubin (0.2-1.3) mg/dL AST (14-36) U/L ALT (4-34) U/L Alkaline Phosphatase (38-126) U/L Ammonia (<30) umol/L Troponin I (0.000-0.034) ng/mL Total Protein (6.3-8.2) g/dL Albumin (3.5-5.0) g/dL Urine Color Light Yellow Urine Appearance Clear (Clear) Urine pH 6.0 (5.0-8.0) Ur Specific Conway 1.006 (1.001-1.035) Urine Protein Trace H (Negative) Urine Glucose (UA) Negative (Negative) Urine Ketones Negative (Negative) Urine Blood Negative (Negative) Urine Nitrite Negative (Negative) Urine Bilirubin Negative (Negative) Urine Urobilinogen <2.0 (<2.0) mg/dL Ur Leukocyte Esterase Negative (Negative) Urine Opiates Screen Not Detected (NotDetected) Ur Oxycodone Screen Not Detected (NotDetected) Urine Methadone Screen Not Detected (NotDetected) Ur Propoxyphene Screen Not Detected (NotDetected) Ur Barbiturates Screen Not Detected (NotDetected) U Tricyclic Antidepress Not Detected (NotDetected) Ur Phencyclidine Scrn Not Detected (NotDetected) Ur Amphetamines Screen Not Detected (NotDetected) U Methamphetamines Scrn Not Detected (NotDetected) U Benzodiazepines Scrn Detected H (NotDetected) Urine Cocaine Screen Not Detected (NotDetected) U Marijuana (THC) Screen Not Detected (NotDetected) Disposition Clinical Impression: Palpitations, Hyperventilation, Anxiety Disposition: HOME SELF-CARE Condition: Good Instructions (If sedation given, give patient instructions): Heart Palpitations (ED) Additional Instructions: Please use medication as discussed. Please follow-up with family doctor in the next 2 days , cardiology in next 1-2 days. Please return to emergency room if the symptoms increase or worsen or for any other concerns. Is patient prescribed a controlled substance at d/c from ED?: No Referrals: None,Stated [Primary Care Provider] - 1-2 days Aren Lua MD [STAFF PHYSICIAN] - 1-2 days Time of Disposition: 09:49
[2020-04-06 10:02] VITALS: BP 125/55; PULSE 70
== END 2020-04-06 10:12 | disposition home or self-care (01) ==
LOC: EC 06:29
DX: R00.2 Palpitations (principal); F41.9 Anxiety disorder, unspecified; J90 Pleural effusion, not elsewhere classified; I47.2 Ventricular tachycardia; F17.200 Nicotine dependence, unspecified, uncomplicated; Z79.899 Other long term (current) drug therapy; Z88.1 Allergy status to other antibiotic agents; Z88.2 Allergy status to sulfonamides; Z95.0 Presence of cardiac pacemaker
CPT/HCPCS: 36415; 93005; 80053; 82140; 83605; 83735; 84100; 84484; 85025; 85610; 85730; 81003; 87040; 80306; 71046; 99285; 96374; 96361 ×3; J2060

== ENCOUNTER 2020-05-09 01:37 | Observation (INO) | payer BC ==
[2020-05-09 02:15] LABS: Basophils # (A) 0.1 k/uL (0-0.2); Basophils % (A) 1 %; Eosinophils # (A) 0.1 k/uL (0-0.7); Eosinophils % (A) 2 %; HCT 45.1 % (34.0-46.0); HGB 14.8 gm/dL (11.4-16.0); Lymphocytes # (A) 2.5 k/uL (1.0-4.8); Lymphocytes % (A) 35 %; MCH 32.7 pg (25.0-35.0); MCHC 32.8 g/dL (31.0-37.0); MCV 99.7 fL (80.0-100.0); Mean Platelet Volume 7.3; Monocytes # (A) 0.4 k/uL (0-1.0); Monocytes % (A) 6 %; Neutrophils # (A) 3.8 k/uL (1.3-7.7); Neutrophils % (A) 55 %; Platelet Count 199 k/uL (150-450); RBC 4.52 m/uL (3.80-5.40); RDW 12.6 % (11.5-15.5)
--- NOTE | 2020-05-09 02:21 | ED ---
General Adult HPI - General Chief complaint: Chest Pain Stated complaint: Diff Breathing Time Seen by Provider: 05/09/20 01:49 Source: patient, family Mode of arrival: wheelchair Limitations: no limitations - History of Present Illness Initial comments: This patient is a 64-year-old woman who presents with complaint of racing heart and intermittent dyspnea. Patient states that she had a pacemaker placed here on March 05, and that since that time she has been having episodes of rapid heart rate that will be coming by dyspnea and sometimes also chest pressure. She states that at times the heart rate will be above 140. That is usually when she has the symptoms. She states also sometimes her heart rate is below 60 and she feels like she is going to pass out. Patient currently is not having symptoms but was just prior to coming in. Onset/Timin -: month(s) Location: chest Radiation: non-radiation Severity scale (1-10): 0 Consistency: intermittent, now resolved Improves with: none Worsens with: none Associated Symptoms: shortness of breath, other (Lightheaded) Treatments Prior to Arrival: none - Related Data Home Medications Medication Instructions Recorded Confirmed Acetaminophen Tab [Tylenol] 1,000 mg PO Q6HR PRN 03/05/20 04/06/20 LORazepam [Ativan] 1 mg PO Q4H PRN 04/06/20 04/06/20 Metoprolol Succinate (ER) [Toprol 25 mg PO DAILY 04/06/20 04/06/20 Xl] Spironolactone 12.5 mg PO DAILY 04/06/20 04/06/20 Allergies Allergy/AdvReac Type Severity Reaction Status Date / Time azithromycin Allergy Unknown Verified 05/09/20 01:43 Sulfa (Sulfonamide Allergy Unknown Verified 05/09/20 01:43 Antibiotics) Review of Systems ROS Statement: Those systems with pertinent positive or pertinent negative responses have been documented in the HPI. ROS Other: All systems not noted in ROS Statement are negative. Constitutional: Denies: fever, chills Eyes: Denies: vision change Respiratory: Reports: as per HPI, dyspnea. Denies: cough, wheezes Cardiovascular: Reports: as per HPI, chest pain, palpitations. Denies: orthopnea, edema, syncope Gastrointestinal: Denies: abdominal pain, vomiting, diarrhea Genitourinary: Denies: dysuria, hematuria Musculoskeletal: Denies: back pain Skin: Denies: rash Neurological: Denies: headache, weakness, numbness Past Medical History Past Medical History: No Reported History History of Any Multi-Drug Resistant Organisms: None Reported Past Surgical History: Pacemaker Additional Past Surgical History / Comment(s): Multiple ovarian surgeries. Past Psychological History: Anxiety, Panic Disorder Smoking Status: Current every day smoker Past Alcohol Use History: None Reported Past Drug Use History: None Reported - Past Family History Mother History Unknown: Yes Family Medical History: CVA/TIA Father History Unknown: Yes Family Medical History: Cancer General Exam Limitations: no limitations General appearance: alert, in no apparent distress Head exam: Present: atraumatic, normocephalic Eye exam: Present: normal appearance. Absent: scleral icterus, conjunctival injection ENT exam: Present: normal oropharynx Neck exam: Present: normal inspection Respiratory exam: Present: normal lung sounds bilaterally. Absent: respiratory distress, wheezes, rales, rhonchi, stridor Cardiovascular Exam: Present: regular rate, normal rhythm, normal heart sounds. Absent: systolic murmur, diastolic murmur, rubs, gallop GI/Abdominal exam: Present: soft. Absent: distended, tenderness, guarding, rebound, rigid, mass Course Vital Signs 05/09/20 05/09/20 01:41 03:18 Temperature 97.8 F Pulse Rate 110 H 96 Respiratory 24 19 Rate Blood Pressure 161/86 133/69 O2 Sat by Pulse 98 98 Oximetry EKG Findings - EKG Comments: EKG Findings:: The 12-lead ECG shows what appears to be an atrial sensed, ventricular paced rhythm. - EKG Results: EKG: interpreted by RADHA, normal axis Medical Decision Making - Lab Data Result diagrams: 05/09/20 02:04 05/09/20 02:04 Lab Results 05/09/20 05/09/20 05/09/20 Range/Units 02:04 02:04 02:04 WBC 7.0 (3.8-10.6) k/uL RBC 4.52 (3.80-5.40) m/uL Hgb 14.8 (11.4-16.0) gm/dL Hct 45.1 (34.0-46.0) % MCV 99.7 (80.0-100.0) fL MCH 32.7 (25.0-35.0) pg MCHC 32.8 (31.0-37.0) g/dL RDW 12.6 (11.5-15.5) % Plt Count 199 (150-450) k/uL Neutrophils % 55 % Lymphocytes % 35 % Monocytes % 6 % Eosinophils % 2 % Basophils % 1 % Neutrophils # 3.8 (1.3-7.7) k/uL Lymphocytes # 2.5 (1.0-4.8) k/uL Monocytes # 0.4 (0-1.0) k/uL Eosinophils # 0.1 (0-0.7) k/uL Basophils # 0.1 (0-0.2) k/uL PT 9.4 (9.0-12.0) sec INR 0.9 (<1.2) APTT 23.2 (22.0-30.0) sec D-Dimer 0.68 H (<0.60) mg/L FEU Sodium 136 L (137-145) mmol/L Potassium 3.3 L (3.5-5.1) mmol/L Chloride 105 (98-107) mmol/L Carbon Dioxide 21 L (22-30) mmol/L Anion Gap 10 mmol/L BUN 17 (7-17) mg/dL Creatinine 0.58 (0.52-1.04) mg/dL Est GFR (CKD-EPI)AfAm >90 (>60 ml/min/1.73 sqM) Est GFR (CKD-EPI)NonAf >90 (>60 ml/min/1.73 sqM) Glucose 200 H (74-99) mg/dL Calcium 9.4 (8.4-10.2) mg/dL Magnesium 1.7 (1.6-2.3) mg/dL Total Bilirubin 0.3 (0.2-1.3) mg/dL AST 68 H (14-36) U/L ALT 61 H (4-34) U/L Alkaline Phosphatase 111 (38-126) U/L Troponin I (0.000-0.034) ng/mL NT-Pro-B Natriuret Pep pg/mL Total Protein 7.1 (6.3-8.2) g/dL Albumin 4.4 (3.5-5.0) g/dL Amylase 128 H (30-110) U/L Lipase 365 H (23-300) U/L 07/06/20 07/06/20 Range/Units 02:04 02:04 WBC (3.8-10.6) k/uL RBC (3.80-5.40) m/uL Hgb (11.4-16.0) gm/dL Hct (34.0-46.0) % MCV (80.0-100.0) fL MCH (25.0-35.0) pg MCHC (31.0-37.0) g/dL RDW (11.5-15.5) % Plt Count (150-450) k/uL Neutrophils % % Lymphocytes % % Monocytes % % Eosinophils % % Basophils % % Neutrophils # (1.3-7.7) k/uL Lymphocytes # (1.0-4.8) k/uL Monocytes # (0-1.0) k/uL Eosinophils # (0-0.7) k/uL Basophils # (0-0.2) k/uL PT (9.0-12.0) sec INR (<1.2) APTT (22.0-30.0) sec D-Dimer (<0.60) mg/L FEU Sodium (137-145) mmol/L Potassium (3.5-5.1) mmol/L Chloride (98-107) mmol/L Carbon Dioxide (22-30) mmol/L Anion Gap mmol/L BUN (7-17) mg/dL Creatinine (0.52-1.04) mg/dL Est GFR (CKD-EPI)AfAm (>60 ml/min/1.73 sqM) Est GFR (CKD-EPI)NonAf (>60 ml/min/1.73 sqM) Glucose (74-99) mg/dL Calcium (8.4-10.2) mg/dL Magnesium (1.6-2.3) mg/dL Total Bilirubin (0.2-1.3) mg/dL AST (14-36) U/L ALT (4-34) U/L Alkaline Phosphatase (38-126) U/L Troponin I <0.012 (0.000-0.034) ng/mL NT-Pro-B Natriuret Pep 101 pg/mL Total Protein (6.3-8.2) g/dL Albumin (3.5-5.0) g/dL Amylase (30-110) U/L Lipase (23-300) U/L Disposition Clinical Impression: Chest pain Disposition: ADMITTED IP TO THIS HOSP Condition: Fair Instructions (If sedation given, give patient instructions): Chest Pain (ED) Is patient prescribed a controlled substance at d/c from ED?: No Referrals: None,Stated [Primary Care Provider] - 1-2 days
[2020-05-09 02:24] LABS: ALT 61 U/L (4-34); AST 68 U/L (14-36); African American GFR (CKD) >90 (>60 ml/min/1.73 sqM); Albumin 4.4 g/dL (3.5-5.0); Alkaline Phosphatase 111 U/L (38-126); Amylase 128 U/L (30-110); Anion Gap 10 mmol/L; Blood Urea Nitrogen 17 mg/dL (7-17); Calcium 9.4 mg/dL (8.4-10.2); Carbon Dioxide 21 mmol/L (22-30); Chloride 105 mmol/L (98-107); Glucose 200 mg/dL (74-99); Magnesium 1.7 mg/dL (1.6-2.3); Non-African American GFR(CKD) >90 (>60 ml/min/1.73 sqM); Potassium 3.3 mmol/L (3.5-5.1); Sodium 136 mmol/L (137-145); Total Bilirubin 0.3 mg/dL (0.2-1.3); Total Protein 7.1 g/dL (6.3-8.2)
[2020-05-09 02:26] LABS: INR 0.9 (<1.2); Partial Thromboplastin Time 23.2 sec (22.0-30.0); Prothrombin Time 9.4 sec (9.0-12.0)
[2020-05-09 02:32] LABS: D-Dimer 0.68 mg/L FEU (<0.60)
[2020-05-09] MEDS ORDERED: POTASSIUM BICARBONATE/CIT AC 20 MEQ TABLET.EFF PO STA (03:01)
[2020-05-09] MEDS: MAGNESIUM SULFATE-D5W PMX 1 GM in DEXTROSE/WATER 1 100ML.BAG IVPB SCH ×2 (03:15→04:19)
[2020-05-09] MEDS ORDERED: NITROGLYCERIN SL TABS 0.4 MG TAB SUBLINGUAL PRN (03:19)
[2020-05-09] MEDS: LORazepam 1 MG TAB PO PRN ×3 (03:55→13:00)
[2020-05-09] MEDS ORDERED: METOPROLOL SUCCINATE (ER) 50 MG TAB.ER.24H PO SCH (09:00)
[2020-05-09] MEDS ORDERED: SPIRONOLACTONE 25 MG TAB PO SCH (09:00)
--- NOTE | 2020-05-09 09:53 | US ---
EXAMINATION TYPE: US gallbladder DATE OF EXAM: 05/09/2020 COMPARISON: 03/06/2020 CLINICAL HISTORY: elevated amylase lipase. EXAM MEASUREMENTS: Liver Length: 14.0 cm Gallbladder Wall: 0.1 cm CBD: 0.4 cm Right Kidney: 11.2 x 4.4 x 4.3 cm Severe overlying bowel gas. Pancreas: partially obscured by bowel gas, portions visualized wnl Liver: wnl Gallbladder: wnl Evidence for sonographic Cervantes's sign: no CBD: wnl Right Kidney: No hydronephrosis or masses seen IMPRESSION: No distinct abnormality is appreciated.
[2020-05-09 11:14] VITALS: BP 119/58; PULSE 70; RESP 12; TEMP 98.1
[2020-05-09] MEDS ORDERED: PANTOPRAZOLE 40 MG/10 ML VIAL IVP SCH (13:00)
--- NOTE | 2020-05-09 13:10 | CONS ---
CONSULTATION Mrs Doherty is a 64-year-old female who is admitted to the hospital with symptoms of dizziness, fluttering, and weakness. The patient has presented to the hospital in beginning of March of this year with a syncopal episode. At that time she had polymorphic VT. She was transferred to [facility], had AV block with 2:1 conduction and prolonged QT interval. She had another episode of polymorphic ventricular tachycardia requiring cardioversion. She subsequently underwent cardiac catheterization that revealed no evidence of high-grade stenosis. Her echocardiogram at that time showed an ejection fraction of 40% to 45% with segmental wall motion abnormality. She subsequently underwent placement of an initially temporary pacemaker implantation and subsequently biventricular ICD implant. The patient presents again with continuous with lack of energy, fatigued and dizziness. She has noted change in her heart rate and her blood pressure. The patient suffers from anxiety and she is quite anxious and teary during her examination. She denies any tightness in the chest. She denies any syncopal episode. There is no discharge from the device. She has no history of PND, orthopnea, or peripheral edema. She has no history of documented hypertension or hyperlipidemia. MEDICATION: At home included spironolactone 12.5 mg daily, metoprolol succinate 25 mg twice a day, Ativan, and Tylenol on a p.r.n. basis. REVIEW OF SYSTEMS: RESPIRATORY SYSTEM: She has no documented history of asthma, emphysema or pathology. GI SYSTEM: No recent GI bleeding. No peptic ulcer disease. No nausea, vomiting. SYSTEM: No dysuria or hematuria. NERVOUS SYSTEM: No stroke or seizure. The patient denies any alcohol intake. PHYSICAL EXAMINATION: She is a 64-year-old female, alert, oriented, oriented, anxious. Blood pressure 110/60 with a heart rate in the 70s. HEAD: Normocephalic. EYES: Sclerae nonicteric. NECK: Good upstroke, no bruit, no venous distention. LUNGS: Clear to auscultation. HEART: Regular rate and rhythm, S1, S2. No S3. No rub or gallop. ICD site clean. No evidence of infection or erythema. ABDOMEN: Soft, nontender. Positive bowel sounds, no organomegaly. EXTREMITIES: No edema, intact distal pulses. LAB DATA: Revealed a troponin less than 0.012. Her AST 68, ALT 61, amylase 128, lipase 365. BUN and creatinine 17 and 0.58, potassium 3.3. D-dimer 0.68, hemoglobin 14.8, white blood cell of 7000, platelet count of 199,000. EKG revealed a sinus mechanism with evidence of ventricular pacing with biventricular configuration. IMPRESSION: 1. Symptoms of dizziness and palpitations. No evidence of malignant arrhythmia in a patient with prior history of ventricular tachycardia. 2. Status post ICD Bi V implantation. 3. Abnormal pancreatic enzymes of unclear etiology. 4. History of anxiety. RECOMMENDATION: I will repeat the echocardiogram. I will obtain evaluation of her device. Further workup regarding regarding her amylase and lipase elevation should be undertaken. Depending on the results of her echocardiogram and interrogation of her device, further recommendation will be made. Thank you for this consult. Will follow with you. JOANNA / LESLY: [id number] /
[2020-05-09 14:11] LABS: Amylase 101 U/L (30-110)
--- NOTE | 2020-05-09 14:38 | P.DS ---
Providers Date of admission: 05/09/20 03:19 Attending physician: Darshan Peacock Consults: 05/09/20 03:19 Consult Physician Routine Consulting Provider: Marc Koch Consult Reason/Comments: chest pain Do you want consulting provider notified?: Yes Primary care physician: Stated None Hospital Course: Please refer to my history of present illness for further details Patient Condition at Discharge: Fair Plan - Discharge Summary New Discharge Prescriptions: Continue Acetaminophen Tab [Tylenol] 1,000 mg PO Q6HR PRN PRN Reason: Fever And/ Or Pain Metoprolol Succinate (ER) [Toprol XL] 25 mg PO BID LORazepam [Ativan] 1 - 2 mg PO Q4H PRN PRN Reason: Anxiety Spironolactone 12.5 mg PO DAILY Discharge Medication List Acetaminophen Tab [Tylenol] 1,000 mg PO Q6HR PRN 03/05/20 [History] LORazepam [Ativan] 1 - 2 mg PO Q4H PRN 04/06/20 [History] Metoprolol Succinate (ER) [Toprol XL] 25 mg PO BID 04/06/20 [History] Spironolactone 12.5 mg PO DAILY 04/06/20 [History] Follow up Appointment(s)/Referral(s): Yolanda Hernandes MD [STAFF PHYSICIAN] - 1 Week (office will call you with a date and time) Marc Koch MD [STAFF PHYSICIAN] - 05/19/20 10:45 am (echo was cancelled June 02 ) Patient Instructions/Handouts: Chest Pain (ED) Discharge Disposition: HOME SELF-CARE
--- NOTE | 2020-05-09 14:38 | P.HPIM ---
History of Present Illness 64-year-old female came in with complaint multiple symptoms of dizziness lightheadedness palpitations generalized weakness. Patient is scared that the her pacemaker may not work since the pacemaker was put in patient was having issues. Patient is not really specific about her symptoms. Patient was admitted and monitored because of her aforementioned symptoms all the workup is negative. Pacemaker was interrogated there is no evidence of episodes of tachycardia patient is complaining of episodes of for tachycardia and palpita tions here as well although these tachycardia episodes are not evident on regulatory affairs strategy specialist either. Patient appears to be really anxious about her symptoms and about the pacemaker. I did discuss with as well. Patient is still complaining of some lightheadedness patient did receive Ativan for her anxiety. And patient doesn't believe Ativan is contributing to her dizziness her dizziness is mostly lightheadedness. Patient had a recent cardiac catheterization which didn't seem without any significant stenosis patient had an EF of around 40-45% but not in heart failure exacerbation patient uses spironolactone for this patient has mild hypokalemia and hypomagnesemia these were corrected and some nonspecific elevation of lipase and patient has a gallbladder ultrasound which she is within normal limits. Patient pacemaker was interrogated. Patient was evaluated by cardiology. Patient denied any orthopnea paroxysmal nocturnal dyspnea. Patient symptoms appear to be mostly related to her anxiety and patient does have a psychiatric she follows as an outpatient doesn't have a PCP. Review of Systems REVIEW OF SYSTEMS: CONSTITUTIONAL: As mentioned in HPI HEENT: No recent visual problems or hearing problems. Denied any sore throat. CARDIOVASCULAR: No chest pain, orthopnea, PND, no syncope. PULMONARY: No shortness of breath, no cough, no hemoptysis. GASTROINTESTINAL: No diarrhea, no nausea, no vomiting, no abdominal pain. NEUROLOGICAL: No headaches, no weakness, no numbness. HEMATOLOGICAL: Denies any bleeding or petechiae. GENITOURINARY: Denies any burning micturition, frequency, or urgency. MUSCULOSKELETAL/RHEUMATOLOGICAL: Denies any joint pain, swelling, or any muscle pain. ENDOCRINE: Denies any polyuria or polydipsia. The rest of the 14-point review of systems is negative. Past Medical History Past Medical History: No Reported History History of Any Multi-Drug Resistant Organisms: None Reported Past Surgical History: AICD, Pacemaker Additional Past Surgical History / Comment(s): Multiple ovarian surgeries. Type of Cardiac Device: AICD Device Placement Date:: 03/05/2020 Past Psychological History: Anxiety, Panic Disorder Smoking Status: Former smoker Past Alcohol Use History: None Reported Past Drug Use History: None Reported - Past Family History Mother History Unknown: Yes Family Medical History: CVA/TIA Father History Unknown: Yes Family Medical History: Cancer Medications and Allergies Home Medications Medication Instructions Recorded Confirmed Type Acetaminophen Tab [Tylenol] 1,000 mg PO Q6HR PRN 03/05/20 05/09/20 History LORazepam [Ativan] 1 - 2 mg PO Q4H PRN 04/06/20 05/09/20 History Metoprolol Succinate (ER) [Toprol 25 mg PO BID 04/06/20 05/09/20 History XL] Spironolactone 12.5 mg PO DAILY 04/06/20 05/09/20 History Allergies Allergy/AdvReac Type Severity Reaction Status Date / Time azithromycin Allergy Unknown Verified 05/09/20 06:59 Sulfa (Sulfonamide Allergy Unknown Verified 05/09/20 06:59 Antibiotics) amiodarone AdvReac DIZZY Verified 05/09/20 06:59 losartan AdvReac DIZZY Verified 05/09/20 06:59 Physical Exam Vitals: Vital Signs Temp Pulse Pulse Resp BP BP Pulse Ox 05/09/20 11:12 98.1 F 70 12 119/58 95 05/09/20 08:00 98 F 86 18 159/71 95 05/09/20 05:28 97.7 F 73 19 110/62 97 05/09/20 03:18 96 19 133/69 98 05/09/20 01:41 97.8 F 110 H 24 161/86 98 Intake and Output 05/08/20 05/09/20 05/09/20 22:59 06:59 14:59 Other: Voiding Method Toilet # Voids 4 Weight 45.359 kg 45.359 kg PHYSICAL EXAMINATION: GENERAL: The patient is alert and oriented x3, not in any acute distress. Patient appears to be anxious and will be tearful about her symptoms. HEENT: Pupils are round and equally reacting to light. EOMI. No scleral icterus. No conjunctival pallor. Normocephalic, atraumatic. No pharyngeal erythema. No thyromegaly. CARDIOVASCULAR: S1 and S2 present. No murmurs, rubs, or gallops. PULMONARY: Chest is clear to auscultation, no wheezing or crackles. ABDOMEN: Soft, nontender, nondistended, normoactive bowel sounds. No palpable organomegaly. MUSCULOSKELETAL: No joint swelling or deformity. EXTREMITIES: No cyanosis, clubbing, or pedal edema. NEUROLOGICAL: Gross neurological examination did not reveal any focal deficits. SKIN: No rashes. Results CBC & Chem 7: 05/09/20 02:04 05/09/20 02:04 Labs: Abnormal Lab Results - Last 24 Hours (Table) 05/09/20 05/09/20 Range/Units 02:04 02:04 D-Dimer 0.68 H (<0.60) mg/L FEU Sodium 136 L (137-145) mmol/L Potassium 3.3 L (3.5-5.1) mmol/L Carbon Dioxide 21 L (22-30) mmol/L Glucose 200 H (74-99) mg/dL AST 68 H (14-36) U/L ALT 61 H (4-34) U/L Amylase 128 H (30-110) U/L Lipase 365 H (23-300) U/L Thrombosis Risk Factor Assmnt - Choose All That Apply Each Risk Factor Represents 2 Points: Age 61-74 years Thrombosis Risk Factor Assessment Total Risk Factor Score: 2 Thrombosis Risk Factor Assessment Level: Low Risk Assessment and Plan Plan: -Symptoms of dizziness and palpitations was evaluated by cardiology no significant arrhythmia on the pacemaker evaluation. Patient is status post pacemaker and biventricular AICD. Her present symptoms are probably secondary to anxiety patient will need to follow up with the her psychiatrist Congestive heart failure chronic systolic dysfunction without any acute exacerbation patient will continue metoprolol and Aldactone. Her EF is around 40-45% Mild a nonspecific elevation of lipase no further intervention at this time not high enough to say pancreatitis -Hypokalemia and hypomagnesemia these were replaced. Patient will be referred to PCP.
--- NOTE | 2020-05-11 16:01 | ECHOF ---
Referral Reason:cm MEASUREMENTS -------- HEIGHT: 157.5 cm WEIGHT: 45.4 kg BP: RVIDd: 3.0 cm (< 3.3) IVSd: 1.0 cm (0.6 - 1.1) LVIDd: 3.4 cm (3.9 - 5.3) LVPWd: 1.1 cm (0.6 - 1.1) IVSs: 1.1 cm LVIDs: 2.9 cm LVPWs: 1.0 cm LA Diam: 2.8 cm (2.7 - 3.8) LAESV Index (A-L): 18.45 ml/m Ao Diam: 3.0 cm (2.0 - 3.7) AV Cusp: 0.8 cm (1.5 - 2.6) LA Diam: 3.0 cm (2.7 - 3.8) MV EXCURSION: 18.330 mm (> 18.000) MV EF SLOPE: 90 mm/s (70 - 150) EPSS: 0.2 cm MV E Tyron: 0.45 m/s MV DecT: 239 ms MV A Tyron: 0.60 m/s MV E/A Ratio: 0.74 RAP: 5.00 mmHg RVSP: 25.15 mmHg FINDINGS -------- Paced rhythm. Pacerwire seen in RV and RA. This was a technically adequate study. LV size, wall thickness and systolic function are normal, with an EF greater than 55%. The left bravo tricular size is normal. The right ventricle is normal in size. Normal LA size by volume 22+/-6 ml/m2. The right atrial size is normal. The aortic valve is trileaflet, and appears structurally normal. No aortic stenosis or regurgitation. The mitral valve is normal. Mild mitral regurgitation is present. Mild tricuspid regurgitation present. Right ventricular systolic pressure is normal at < 35 mmHg. There is no pulmonic regurgitation present. The aortic root size is normal. There is no pericardial effusion. CONCLUSIONS -------- 1. Pacerwire seen in RV and RA. 2. LV size, wall thickness and systolic function are normal, with an EF greater than 55%. 3. Normal LA size by volume 22+/-6 ml/m2. 4. The aortic valve is trileaflet, and appears structurally normal. No aortic stenosis or regurgitati on. 5. Mild mitral regurgitation is present. 6. Mild tricuspid regurgitation present. 7. There is no pericardial effusion. ORNAMENT SETTER: Analy Packer RDCS
== END 2020-05-09 14:30 | disposition home or self-care (01) ==
LOC: EC 01:37 → 1SOBS 03:19
PROVIDERS: ADMIT Hospitalist; ATTEND Hospitalist
DX: R07.89 Other chest pain (principal); Z11.59 Encounter for screening for other viral diseases; F17.200 Nicotine dependence, unspecified, uncomplicated; F41.0 Panic disorder [episodic paroxysmal anxiety]; I47.2 Ventricular tachycardia; I50.22 Chronic systolic (congestive) heart failure; Z95.810 Presence of automatic (implantable) cardiac defibrillator; Z82.3 Family history of stroke; Z80.9 Family history of malignant neoplasm, unspecified; Z79.899 Other long term (current) drug therapy; Z88.1 Allergy status to other antibiotic agents; Z88.2 Allergy status to sulfonamides; E87.6 Hypokalemia; E83.42 Hypomagnesemia; R74.8 Abnormal levels of other serum enzymes
CPT/HCPCS: 96365; 96366; 99285; 36415; 93005; 93306; 85379; 83880; 80053; 82150; 83690; 83735; 84484; 85025; 85610; 85730; 76705; G0378; U0003; J3475

== ENCOUNTER 2020-06-22 19:37 | Observation (INO) | payer BC ==
[2020-06-22] MEDS ORDERED: SODIUM CHLORIDE 0.9% 1,000 ML IV STA ×2 (19:52)
--- NOTE | 2020-06-22 19:54 | ED ---
Arrhythmia/Palpitations HPI - General Chief Complaint: Chest Pain Stated Complaint: Chest Pain Time Seen by Provider: 06/22/20 19:51 Source: patient, RN notes reviewed, old records reviewed Mode of arrival: wheelchair Limitations: no limitations - History of Present Illness Initial Comments: This is a 64-year-old female DF for evaluation patient presents today for evaluation regards to significantly elevated heart rate palpitations patient has a complicated heart history pacemaker placed history of ventricular tachycardia and then severe bradycardia. Patient symptoms. Began to be progressively worse tonight she also has have significant history of low electrolytes. MD Complaint: rapid heart beat, "heart racing", "skipped beats", palpitations, irregular heart beat -: hour(s) Context: occurred during rest Arrhythmia History: SVT, pacemaker, AICD, history of electrical cardioversion Associated Symptoms: anxiety - Related Data Home Medications Medication Instructions Recorded Confirmed Acetaminophen Tab [Tylenol] 1,000 mg PO Q6HR PRN 03/05/20 06/22/20 LORazepam [Ativan] 1 - 2 mg PO QID PRN 04/06/20 06/22/20 Metoprolol Succinate (ER) [Toprol 25 mg PO BID 04/06/20 06/22/20 XL] Spironolactone 12.5 mg PO DAILY 04/06/20 06/22/20 Allergies Allergy/AdvReac Type Severity Reaction Status Date / Time azithromycin Allergy Unknown Verified 06/22/20 21:37 Sulfa (Sulfonamide Allergy Unknown Verified 06/22/20 21:37 Antibiotics) amiodarone AdvReac DIZZY Verified 06/22/20 21:37 losartan AdvReac DIZZY Verified 06/22/20 21:37 Review of Systems ROS Statement: Those systems with pertinent positive or pertinent negative responses have been documented in the HPI. ROS Other: All systems not noted in ROS Statement are negative. Past Medical History Past Medical History: Coronary Artery Disease (CAD) History of Any Multi-Drug Resistant Organisms: None Reported Past Surgical History: AICD, Pacemaker Additional Past Surgical History / Comment(s): Multiple ovarian surgeries. Type of Cardiac Device: AICD Device Placement Date:: 03/05/2020 Past Psychological History: Anxiety, Panic Disorder Smoking Status: Never smoker Past Alcohol Use History: None Reported Past Drug Use History: None Reported - Past Family History Mother History Unknown: Yes Family Medical History: CVA/TIA Father History Unknown: Yes Family Medical History: Cancer General Exam Limitations: no limitations General appearance: alert, in no apparent distress, anxious Head exam: Present: atraumatic, normocephalic, normal inspection Eye exam: Present: normal appearance, PERRL, EOMI. Absent: scleral icterus, conjunctival injection, periorbital swelling ENT exam: Present: normal exam, mucous membranes moist Neck exam: Present: normal inspection. Absent: tenderness, meningismus, lymphadenopathy Respiratory exam: Present: normal lung sounds bilaterally. Absent: respiratory distress, wheezes, rales, rhonchi, stridor Cardiovascular Exam: Present: normal rhythm, tachycardia, normal heart sounds. Absent: systolic murmur, diastolic murmur, rubs, gallop, clicks GI/Abdominal exam: Present: soft, normal bowel sounds. Absent: distended, tenderness, guarding, rebound, rigid Extremities exam: Present: normal inspection, full ROM, normal capillary refill. Absent: tenderness, pedal edema, joint swelling, calf tenderness Back exam: Present: normal inspection Neurological exam: Present: alert, oriented X3, CN II-XII intact Psychiatric exam: Present: normal affect, normal mood Skin exam: Present: warm, dry, intact, normal color. Absent: rash Course Vital Signs 06/22/20 06/22/20 06/22/20 19:39 19:45 21:08 Temperature 97.6 F Pulse Rate 120 H 77 Pulse Rate [ 89 [employer] ] Respiratory 22 18 Rate Blood Pressure 133/80 118/75 O2 Sat by Pulse 98 99 Oximetry - Reevaluation(s) Reevaluation #1: 06/22/20 19:54 Medical records reviewed Reevaluation #2: Patient still complaining of significant chest pain EKG Findings - EKG Comments: EKG Findings:: EKG is paced rhythm of 109 NV 132 QRS 120 QTc 509 Medical Decision Making - Medical Decision Making 64 female DF for evaluation severe tachycardia and anxiety. Patient is persistent elevated heart rate here in the ER did improve with medication, patient be admitted for cardiology observation - Lab Data Result diagrams: 06/22/20 19:47 06/22/20 19:47 Lab Results 06/22/20 06/22/20 06/22/20 Range/Units 19:47 19:47 19:47 WBC 7.5 (3.8-10.6) k/uL RBC 4.61 (3.80-5.40) m/uL Hgb 15.1 (11.4-16.0) gm/dL Hct 45.2 (34.0-46.0) % MCV 98.1 (80.0-100.0) fL MCH 32.7 (25.0-35.0) pg MCHC 33.3 (31.0-37.0) g/dL RDW 12.3 (11.5-15.5) % Plt Count 262 (150-450) k/uL Neutrophils % 56 % Lymphocytes % 33 % Monocytes % 7 % Eosinophils % 1 % Basophils % 1 % Neutrophils # 4.2 (1.3-7.7) k/uL Lymphocytes # 2.5 (1.0-4.8) k/uL Monocytes # 0.5 (0-1.0) k/uL Eosinophils # 0.1 (0-0.7) k/uL Basophils # 0.1 (0-0.2) k/uL PT 9.5 (9.0-12.0) sec INR 0.9 (<1.2) APTT 24.3 (22.0-30.0) sec Sodium 137 (137-145) mmol/L Potassium 3.5 (3.5-5.1) mmol/L Chloride 103 (98-107) mmol/L Carbon Dioxide 24 (22-30) mmol/L Anion Gap 10 mmol/L BUN 20 H (7-17) mg/dL Creatinine 0.66 (0.52-1.04) mg/dL Est GFR (CKD-EPI)AfAm >90 (>60 ml/min/1.73 sqM) Est GFR (CKD-EPI)NonAf >90 (>60 ml/min/1.73 sqM) Glucose 129 H (74-99) mg/dL Calcium 10.0 (8.4-10.2) mg/dL Phosphorus 2.8 (2.5-4.5) mg/dL Magnesium 1.8 (1.6-2.3) mg/dL Total Bilirubin 0.4 (0.2-1.3) mg/dL AST 33 (14-36) U/L ALT 34 (4-34) U/L Alkaline Phosphatase 99 (38-126) U/L Creatine Kinase 66 (30-135) U/L Troponin I (0.000-0.034) ng/mL NT-Pro-B Natriuret Pep pg/mL Total Protein 7.3 (6.3-8.2) g/dL Albumin 4.6 (3.5-5.0) g/dL TSH <0.015 L (0.465-4.680) mIU/L Urine Color Urine Appearance (Clear) Urine pH (5.0-8.0) Ur Specific Baker (1.001-1.035) Urine Protein (Negative) Urine Glucose (UA) (Negative) Urine Ketones (Negative) Urine Blood (Negative) Urine Nitrite (Negative) Urine Bilirubin (Negative) Urine Urobilinogen (<2.0) mg/dL Ur Leukocyte Esterase (Negative) 06/22/20 06/22/20 06/22/20 Range/Units 19:47 19:47 20:12 WBC (3.8-10.6) k/uL RBC (3.80-5.40) m/uL Hgb (11.4-16.0) gm/dL Hct (34.0-46.0) % MCV (80.0-100.0) fL MCH (25.0-35.0) pg MCHC (31.0-37.0) g/dL RDW (11.5-15.5) % Plt Count (150-450) k/uL Neutrophils % % Lymphocytes % % Monocytes % % Eosinophils % % Basophils % % Neutrophils # (1.3-7.7) k/uL Lymphocytes # (1.0-4.8) k/uL Monocytes # (0-1.0) k/uL Eosinophils # (0-0.7) k/uL Basophils # (0-0.2) k/uL PT (9.0-12.0) sec INR (<1.2) APTT (22.0-30.0) sec Sodium (137-145) mmol/L Potassium (3.5-5.1) mmol/L Chloride (98-107) mmol/L Carbon Dioxide (22-30) mmol/L Anion Gap mmol/L BUN (7-17) mg/dL Creatinine (0.52-1.04) mg/dL Est GFR (CKD-EPI)AfAm (>60 ml/min/1.73 sqM) Est GFR (CKD-EPI)NonAf (>60 ml/min/1.73 sqM) Glucose (74-99) mg/dL Calcium (8.4-10.2) mg/dL Phosphorus (2.5-4.5) mg/dL Magnesium (1.6-2.3) mg/dL Total Bilirubin (0.2-1.3) mg/dL AST (14-36) U/L ALT (4-34) U/L Alkaline Phosphatase (38-126) U/L Creatine Kinase (30-135) U/L Troponin I <0.012 (0.000-0.034) ng/mL NT-Pro-B Natriuret Pep 142 pg/mL Total Protein (6.3-8.2) g/dL Albumin (3.5-5.0) g/dL TSH (0.465-4.680) mIU/L Urine Color Light Yellow Urine Appearance Clear (Clear) Urine pH 5.5 (5.0-8.0) Ur Specific Baker 1.013 (1.001-1.035) Urine Protein Negative (Negative) Urine Glucose (UA) Negative (Negative) Urine Ketones Negative (Negative) Urine Blood Negative (Negative) Urine Nitrite Negative (Negative) Urine Bilirubin Negative (Negative) Urine Urobilinogen <2.0 (<2.0) mg/dL Ur Leukocyte Esterase Negative (Negative) Critical Care Time Critical Care Time: Yes Total Critical Care Time: 31 Disposition Clinical Impression: Panic attack, Tachycardia, Hypomagnesemia, Hypokalemia, V tach Disposition: ADMITTED IP TO THIS HOSP Condition: Fair Is patient prescribed a controlled substance at d/c from ED?: No
[2020-06-22 20:09] LABS: Basophils # (A) 0.1 k/uL (0-0.2); Basophils % (A) 1 %; Eosinophils # (A) 0.1 k/uL (0-0.7); Eosinophils % (A) 1 %; HCT 45.2 % (34.0-46.0); HGB 15.1 gm/dL (11.4-16.0); Lymphocytes # (A) 2.5 k/uL (1.0-4.8); Lymphocytes % (A) 33 %; MCH 32.7 pg (25.0-35.0); MCHC 33.3 g/dL (31.0-37.0); MCV 98.1 fL (80.0-100.0); Mean Platelet Volume 7.7; Monocytes # (A) 0.5 k/uL (0-1.0); Monocytes % (A) 7 %; Neutrophils # (A) 4.2 k/uL (1.3-7.7); Neutrophils % (A) 56 %; Platelet Count 262 k/uL (150-450); RBC 4.61 m/uL (3.80-5.40); RDW 12.3 % (11.5-15.5); WBC 7.5 k/uL (3.8-10.6)
[2020-06-22 20:19] LABS: ALT 34 U/L (4-34); AST 33 U/L (14-36); African American GFR (CKD) >90 (>60 ml/min/1.73 sqM); Albumin 4.6 g/dL (3.5-5.0); Alkaline Phosphatase 99 U/L (38-126); Anion Gap 10 mmol/L; Blood Urea Nitrogen 20 mg/dL (7-17); Carbon Dioxide 24 mmol/L (22-30); Chloride 103 mmol/L (98-107); Creatine Kinase 66 U/L (30-135); Glucose 129 mg/dL (74-99); Magnesium 1.8 mg/dL (1.6-2.3); Non-African American GFR(CKD) >90 (>60 ml/min/1.73 sqM); Phosphorus 2.8 mg/dL (2.5-4.5); Potassium 3.5 mmol/L (3.5-5.1); Sodium 137 mmol/L (137-145); Total Bilirubin 0.4 mg/dL (0.2-1.3); Total Protein 7.3 g/dL (6.3-8.2)
[2020-06-22 20:27] LABS: INR 0.9 (<1.2); Partial Thromboplastin Time 24.3 sec (22.0-30.0); Prothrombin Time 9.5 sec (9.0-12.0)
[2020-06-22 20:38] LABS: Appearance,Urine Clear (Clear); Bilirubin,Urine Negative (Negative); Blood,Urine Negative (Negative); Color,Urine Light Yellow; Glucose,Urine (UA) Negative (Negative); Ketones,Urine Negative (Negative); Leukocyte Esterase,Urine Negative (Negative); Nitrite,Urine Negative (Negative); PH, Urine 5.5 (5.0-8.0); Protein,Urine Negative (Negative); Specific Gravity,Urine 1.013 (1.001-1.035); Urobilinogen,Urine <2.0 mg/dL (<2.0)
[2020-06-22] MEDS ORDERED: LORazepam 2 MG/ML INJ IV STA (20:47)
[2020-06-22] MEDS ORDERED: NITROGLYCERIN SL TABS 0.4 MG TAB SUBLINGUAL PRN (20:47)
[2020-06-22] MEDS ORDERED: METOPROLOL TARTRATE 5 MG/5 ML VIAL IVP STA (20:47)
[2020-06-22] MEDS ORDERED: METOPROLOL TARTRATE 50 MG TAB PO SCH (22:00)
[2020-06-23] MEDS: ACETAMINOPHEN TAB 325 MG TAB PO PRN ×2 (00:52→09:14)
[2020-06-23] MEDS: LORazepam 2 MG/ML INJ IV PRN ×2 (00:54→07:00)
[2020-06-23 05:36] LABS: Cholesterol 181 mg/dL (<200); HDL Cholesterol 46 mg/dL (40-60); LDL Cholesterol,Calculated 116 mg/dL (0-99); Triglycerides 93 mg/dL (<150)
[2020-06-23] MEDS ORDERED: METOPROLOL TARTRATE 25 MG TAB PO SCH ×2 (09:00→16:00)
[2020-06-23 09:18] VITALS: BP 124/68; RESP 20; TEMP 97.4
[2020-06-23 09:24] VITALS: PULSE 70
[2020-06-23] MEDS ORDERED: LORazepam 2 MG/ML INJ IV STA (09:34)
--- NOTE | 2020-06-23 09:42 | P.HPIM ---
History of Present Illness This is a pleasant 64 years old female with past medical history of coronary artery disease, anxiety. Patient went to see her doctor for regular checkup, her polysomnograph tech Dr. Koch however she saw the nurse practitioner to check her device and found to be tachycardic at 120 while she was anxious, he checked her device and sent her home, she woke up in the middle of night with palpitation and tachycardia, heart rate was 140, she waited for an hour and then decided to come to the hospital as her symptoms persist, she felt dizziness like presyncope Patient felt very anxious when she was talking to me and she was crying, she was asking consistently on taking Of coffee while she is nothing by mouth with him for the heart doctor, she states she drinks several cups of coffee. Patient denies suicidal ideation, homicidal ideation or hallucinations. Patient was started on Ativan in the emergency room Vital signs stable. Currently her heart rate is 70-71, blood pressure 124/68. Labs are unremarkable including CBC, BMP, INR, liver enzymes, troponin 3. She has low TSH of less than 0.015 which is low. Urine analysis is unremarkable. EKG showing atrial sensed and ventricular paced rhythm at 109 with QTC of 549 Review of Systems CONSTITUTIONAL: No fever, no malaise, no fatigue. HEENT: No recent visual problems or hearing problems. Denied any sore throat. CARDIOVASCULAR: No orthopnea, PND, no palpitations, no syncope. PULMONARY: No shortness of breath, no cough, no hemoptysis. GASTROINTESTINAL: No diarrhea, no nausea, no vomiting, no abdominal pain. Normoactive bowel sounds. NEUROLOGICAL: No headaches, no weakness, no numbness. HEMATOLOGICAL: Denies any bleeding or petechiae. GENITOURINARY: Denies any burning micturition, frequency, or urgency. MUSCULOSKELETAL/RHEUMATOLOGICAL: Denies any joint pain, swelling, or any muscle pain. ENDOCRINE: Denies any polyuria or polydipsia. Past Medical History Past Medical History: Coronary Artery Disease (CAD) History of Any Multi-Drug Resistant Organisms: None Reported Past Surgical History: AICD, Pacemaker Additional Past Surgical History / Comment(s): Multiple ovarian surgeries. Appendectomy, tonsillectomy. Type of Cardiac Device: AICD Device Placement Date:: 03/05/2020 Past Psychological History: Anxiety, Panic Disorder Smoking Status: Never smoker Past Alcohol Use History: None Reported Past Drug Use History: None Reported - Past Family History Mother History Unknown: Yes Family Medical History: CVA/TIA Father History Unknown: Yes Family Medical History: Cancer Medications and Allergies Home Medications Medication Instructions Recorded Confirmed Type Acetaminophen Tab [Tylenol] 1,000 mg PO Q6HR PRN 03/05/20 06/22/20 History LORazepam [Ativan] 1 - 2 mg PO QID PRN 04/06/20 06/22/20 History Metoprolol Succinate (ER) [Toprol 25 mg PO BID 04/06/20 06/22/20 History XL] Spironolactone 12.5 mg PO DAILY 04/06/20 06/22/20 History Allergies Allergy/AdvReac Type Severity Reaction Status Date / Time azithromycin Allergy Unknown Verified 06/22/20 21:37 Sulfa (Sulfonamide Allergy Unknown Verified 06/22/20 21:37 Antibiotics) amiodarone AdvReac DIZZY Verified 06/22/20 21:37 losartan AdvReac DIZZY Verified 06/22/20 21:37 Physical Exam Vitals: Vital Signs Temp Pulse Pulse Resp BP BP Pulse Ox 06/23/20 04:10 97.5 F L 70 16 96/59 98 06/22/20 22:30 97.5 F L 71 17 129/78 99 06/22/20 21:08 77 18 118/75 99 06/22/20 19:45 89 06/22/20 19:39 97.6 F 120 H 22 133/80 98 Intake and Output 06/22/20 06/23/20 06/23/20 22:59 06:59 14:59 Other: Voiding Method Toilet Toilet # Voids 2 Weight 45.359 kg -GENERAL: The patient is alert and oriented x3, not in any acute distress. Thin built HEENT: Pupils are round and equally reacting to light. EOMI. No scleral icterus. No conjunctival pallor. Normocephalic, atraumatic. No pharyngeal erythema. No thyromegaly. CARDIOVASCULAR: S1 and S2 present. No murmurs, rubs, or gallops. PULMONARY: Chest is clear to auscultation, no wheezing or crackles. ABDOMEN: Soft, nontender, nondistended, normoactive bowel sounds. No palpable organomegaly. MUSCULOSKELETAL: No joint swelling or deformity. EXTREMITIES: No cyanosis, clubbing, or pedal edema. NEUROLOGICAL: Gross neurological examination did not reveal any focal deficits. SKIN: No rashes. No petechiae -Psychological., But very anxious and crying Results CBC & Chem 7: 06/22/20 19:47 06/22/20 19:47 Labs: Abnormal Lab Results - Last 24 Hours (Table) 06/22/20 06/23/20 Range/Units 19:47 02:28 BUN 20 H (7-17) mg/dL Glucose 129 H (74-99) mg/dL LDL Cholesterol, Calc 116 H (0-99) mg/dL TSH <0.015 L (0.465-4.680) mIU/L Thrombosis Risk Factor Assmnt - Choose All That Apply Any of the Below Risk Factors Present?: No Each Risk Factor Represents 2 Points: Age 61-74 years Other congenital or acquired thrombophilia - If yes, enter type in comment: No Thrombosis Risk Factor Assessment Total Risk Factor Score: 2 Thrombosis Risk Factor Assessment Level: Low Risk Assessment and Plan Assessment: Dizziness and presyncope Tachycardia on palpitation Low TSH anxiety History of coronary artery disease History of tachycardiabradycardia syndrome status post pacemaker Plan: This is a pleasant 64 years old female who presents with tachycardia and low TSH. Continue with beta tiffany metoprolol, cardiology consult, monitor her heart ratey, recheck TSH and T4. Patient is anxious cervical psych consult. We will start some IV fluids Labs and medication were reviewed.. Continue same treatment. Continue with symptomatic treatment. Resume home medication. Monitor lytes and vitals. DVT and GI prophylaxis. Further recommendations of the clinical course of the patient DVT prophylaxis: Subcutaneous heparin GI Prophylaxis: Pepcid
[2020-06-23] MEDS ORDERED: DEXTROSE 5%-0.9% NACL 1,000 ML IV SCH (09:45)
[2020-06-23 10:31] LABS: T4, Free (Free Thyroxine) 1.47 ng/dL (0.78-2.19)
--- NOTE | 2020-06-23 12:09 | P.CRDCN ---
History of Present Illness Consult date: 06/23/20 Chief complaint: Heart racing History of present illness: This is a very pleasant 64-year-old female patient with a past medical history significant for permanent pacemaker implantation who follows with Dr. Koch in the office on regular basis presented to the hospital complaining of increasing in the heart racing and symptoms of heart fluttering as well as symptoms of dizziness and lightheadedness. The patient was in her usual state of health when she was sitting at home yesterday and woke up at the middle of the night containing of palpitations. She checked her pulse and that came in to be elevated at 1 40 bpm and because of that she decided to come to the hospital. Also she felt dizzy and lightheaded but she did not lose her consciousness. No symptoms of chest pain or chest discomfort or shortness of breath. The patient heart rate has been within normal limits throughout her hospital stay. Her device was checked recently in the office and that revealed multiple episodes of sinus tachycardia. She is on metoprolol at 25 mg by mouth twice a day but her pressure has been marginal. She underwent a heart catheterization earlier this year and that revealed mild nonobstructive coronary artery disease. An echocardiogram also was performed earlier this year and that revealed an EF within normal limits. The patient is on metoprolol as well as Aldactone. During this admission she underwent a workup including CBC and BMP and that came in to be unremarkable. The chest x-ray showed no acute abnormalities be due to troponin came in to be unremarkable as well. At this point I'm going to increase the dose of metoprolol to 25 mg by mouth 3 times a day. I advised monitor the pressure for additional 24 hours just because her pressure has been in the marginal territory. No need to repeat her echocardiogram at this point. We'll continue following up with the patient. Past Medical History Past Medical History: Coronary Artery Disease (CAD) History of Any Multi-Drug Resistant Organisms: None Reported Past Surgical History: AICD, Pacemaker Additional Past Surgical History / Comment(s): Multiple ovarian surgeries. Appendectomy, tonsillectomy. Type of Cardiac Device: AICD Device Placement Date:: 03/05/2020 Past Psychological History: Anxiety, Panic Disorder Smoking Status: Never smoker Past Alcohol Use History: None Reported Past Drug Use History: None Reported - Past Family History Mother History Unknown: Yes Family Medical History: CVA/TIA Father History Unknown: Yes Family Medical History: Cancer Medications and Allergies Home Medications Medication Instructions Recorded Confirmed Type Acetaminophen Tab [Tylenol] 1,000 mg PO Q6HR PRN 03/05/20 06/22/20 History LORazepam [Ativan] 1 - 2 mg PO QID PRN 04/06/20 06/22/20 History Metoprolol Succinate (ER) [Toprol 25 mg PO BID 04/06/20 06/22/20 History XL] Spironolactone 12.5 mg PO DAILY 04/06/20 06/22/20 History Allergies Allergy/AdvReac Type Severity Reaction Status Date / Time azithromycin Allergy Unknown Verified 06/22/20 21:37 Sulfa (Sulfonamide Allergy Unknown Verified 06/22/20 21:37 Antibiotics) amiodarone AdvReac DIZZY Verified 06/22/20 21:37 losartan AdvReac DIZZY Verified 06/22/20 21:37 Physical Exam Vitals: Vital Signs Temp Pulse Pulse Pulse Resp BP BP 06/23/20 09:00 70 71 20 06/23/20 08:05 97.4 F L 71 20 124/68 06/23/20 04:10 97.5 F L 70 16 96/59 06/22/20 22:30 97.5 F L 71 17 129/78 06/22/20 21:08 77 18 118/75 06/22/20 19:45 89 06/22/20 19:39 97.6 F 120 H 22 133/80 Pulse Ox 06/23/20 09:00 06/23/20 08:05 98 06/23/20 04:10 98 06/22/20 22:30 99 06/22/20 21:08 99 06/22/20 19:45 06/22/20 19:39 98 Intake and Output 06/22/20 06/23/20 06/23/20 22:59 06:59 14:59 Other: Voiding Method Toilet Toilet Toilet # Voids 2 2 Weight 45.359 kg - Constitutional General appearance: no acute distress - Respiratory Respiratory: bilateral: CTA - Cardiovascular Rhythm: regular Heart sounds: normal: S1, S2 Results 06/22/20 19:47 06/22/20 19:47 Cardiac Enzymes 06/22/20 06/22/20 06/22/20 Range/Units 19:47 19:47 22:35 AST 33 (14-36) U/L Troponin I <0.012 <0.012 (0.000-0.034) ng/mL 06/23/20 Range/Units 02:28 AST (14-36) U/L Troponin I <0.012 (0.000-0.034) ng/mL Coagulation 06/22/20 Range/Units 19:47 PT 9.5 (9.0-12.0) sec APTT 24.3 (22.0-30.0) sec Lipids 06/23/20 Range/Units 02:28 Triglycerides 93 (<150) mg/dL Cholesterol 181 (<200) mg/dL HDL Cholesterol 46 (40-60) mg/dL CBC 06/22/20 Range/Units 19:47 WBC 7.5 (3.8-10.6) k/uL RBC 4.61 (3.80-5.40) m/uL Hgb 15.1 (11.4-16.0) gm/dL Hct 45.2 (34.0-46.0) % Plt Count 262 (150-450) k/uL Comprehensive Metabolic Panel 06/22/20 Range/Units 19:47 Sodium 137 (137-145) mmol/L Potassium 3.5 (3.5-5.1) mmol/L Chloride 103 (98-107) mmol/L Carbon Dioxide 24 (22-30) mmol/L BUN 20 H (7-17) mg/dL Creatinine 0.66 (0.52-1.04) mg/dL Glucose 129 H (74-99) mg/dL Calcium 10.0 (8.4-10.2) mg/dL AST 33 (14-36) U/L ALT 34 (4-34) U/L Alkaline Phosphatase 99 (38-126) U/L Total Protein 7.3 (6.3-8.2) g/dL Albumin 4.6 (3.5-5.0) g/dL Current Medications Generic Name Dose Route Start Last Admin Trade Name Freq PRN Reason Stop Dose Admin Acetaminophen 650 mg 06/23/20 00:36 06/23/20 09:14 Tylenol Tab PO 650 mg Q6HR PRN Administration Fever and/ or Pain Dextrose/Sodium Chloride 1,000 mls @ 75 mls/hr 06/23/20 09:45 06/23/20 09:54 Dextrose 5%-Ns Iv Soln IV 75 mls/hr .[id number] NEELIMA Administration Lorazepam 1 mg 06/22/20 20:47 06/23/20 07:00 Ativan IV 1 mg Q4HR PRN Administration Anxiety Metoprolol Tartrate 25 mg 06/23/20 16:00 Lopressor PO TID NEELIMA Nitroglycerin 0.4 mg 06/22/20 20:47 Nitrostat SUBLINGUAL Q5M PRN Chest Pain Intake and Output 06/22/20 06/23/20 06/23/20 22:59 06:59 14:59 Other: Voiding Method Toilet Toilet Toilet # Voids 2 2 Weight 45.359 kg 06/22/20 19:47 06/22/20 19:47 Assessment and Plan Assessment: Assessment #1 heart racing and fluttering #2 sinus tachycardia #3 status post permanent pacemaker Plan #1 increase the dose of metoprolol to 25 mg by mouth 3 times a day #2 monitor the blood pressure and heart rate for additional 24 hours #3 follow-up with the patient
[2020-06-23] MEDS ORDERED: METOPROLOL TARTRATE 50 MG TAB PO SCH (21:00)
== END 2020-06-23 14:16 | disposition left against medical advice (07) ==
LOC: EC 19:37 → 3NCARDOBS 20:50
PROVIDERS: ADMIT Hospitalist; ATTEND Hospitalist
DX: R42 Dizziness and giddiness (principal); R55 Syncope and collapse; R00.2 Palpitations; R94.6 Abnormal results of thyroid function studies; F41.9 Anxiety disorder, unspecified; F41.0 Panic disorder [episodic paroxysmal anxiety]; I25.10 Atherosclerotic heart disease of native coronary artery without angina pectoris; I49.5 Sick sinus syndrome; E83.42 Hypomagnesemia; E87.6 Hypokalemia; R00.0 Tachycardia, unspecified; R07.9 Chest pain, unspecified; Z53.29 Procedure and treatment not carried out because of patient's decision for other reasons; Z95.810 Presence of automatic (implantable) cardiac defibrillator; Z98.890 Other specified postprocedural states; Z79.899 Other long term (current) drug therapy; Z88.1 Allergy status to other antibiotic agents; Z88.2 Allergy status to sulfonamides; Z88.8 Allergy status to other drugs, medicaments and biological substances; Z90.49 Acquired absence of other specified parts of digestive tract; Z90.89 Acquired absence of other organs; Z82.3 Family history of stroke; Z80.9 Family history of malignant neoplasm, unspecified
CPT/HCPCS: 93005 ×2; 96361 ×3; 96376; 96374; 96375; 99291; 36415; 84439; 84481; 83880; 80061; 80053; 84443 ×2; 82550; 83735; 84100; 84484 ×2; 85025; 85610; 85730; 81003; G0378 ×2; J2060 ×2

== ENCOUNTER 2020-10-28 09:28 | Emergency (ER) | payer BC ==
[2020-10-28] MEDS ORDERED: LORazepam 2 MG/ML INJ IV STA (10:27)
[2020-10-28] MEDS ORDERED: SODIUM CHLORIDE 0.9% 500 ML 500 ML IV STA (10:27)
--- NOTE | 2020-10-28 10:35 | ED ---
General Adult HPI - General Chief complaint: Arrhythmia/Palpitations Stated complaint: defibrillator went off Time Seen by Provider: 10/28/20 09:30 Source: patient, RN notes reviewed, old records reviewed Mode of arrival: ambulatory Limitations: no limitations - History of Present Illness Initial comments: This is a 65-year-old female presents emergency Department stating that her heart rate got really low this morning down to 49 and her blood pressure was elevated at 179/106. Patient states at this time she had no symptoms but she knows something is wrong she doesn't believe her pacemaker is working. Patient is under the impression that her defibrillator should've fired one her heart rate got slow. Patient is extremely anxious. The more I speak with the patient's the more symptoms she states she is having. Patient states currently she feels very weak and her blood pressure and heart rate are currently normal. Patient is oxygenating in the high 90s on room air. Patient is tearful throughout the interview. After having spoken the patient for 10 minutes she then started telling me that she almost passed out this morning at some point but not necessarily related to the potential 1 reading of the low heart rate. Patient also states she's been so weak it's hard to climb the stairs and been very short of breath and making it difficult to Mine to swell and she believes this all started when she had her pacemaker started in March. - Related Data Home Medications Medication Instructions Recorded Confirmed Acetaminophen Tab [Tylenol] 1,000 mg PO Q6HR PRN 03/05/20 10/28/20 LORazepam [Ativan] 1 - 2 mg PO QID PRN 04/06/20 10/28/20 Metoprolol Succinate (ER) [Toprol 25 mg PO BID 10/28/20 10/28/20 Xl] Allergies Allergy/AdvReac Type Severity Reaction Status Date / Time azithromycin Allergy Unknown Verified 10/28/20 10:59 Sulfa (Sulfonamide Allergy Unknown Verified 10/28/20 10:59 Antibiotics) amiodarone AdvReac DIZZY Verified 10/28/20 10:59 losartan AdvReac DIZZY Verified 10/28/20 10:59 Review of Systems ROS Statement: Those systems with pertinent positive or pertinent negative responses have been documented in the HPI. ROS Other: All systems not noted in ROS Statement are negative. Past Medical History Past Medical History: Coronary Artery Disease (CAD) History of Any Multi-Drug Resistant Organisms: None Reported Past Surgical History: AICD, Pacemaker Additional Past Surgical History / Comment(s): Multiple ovarian surgeries. Type of Cardiac Device: AICD Device Placement Date:: 03/05/2020 Past Psychological History: Anxiety, Panic Disorder Smoking Status: Never smoker Past Alcohol Use History: None Reported Past Drug Use History: None Reported - Past Family History Mother History Unknown: Yes Family Medical History: CVA/TIA Father History Unknown: Yes Family Medical History: Cancer General Exam - General Exam Comments Initial Comments: GENERAL: Patient is well-developed and well-nourished. Patient is nontoxic and well- hydrated and is in mild distress. ENT: Neck is soft and supple. No significant lymphadenopathy is noted. Oropharynx is clear. Moist mucous membranes. Neck has full range of motion without eliciting any pain. EYES: The sclera were anicteric and conjunctiva were pink and moist. Extraocular movements were intact and pupils were equal round and reactive to light. Eyelids were unremarkable. PULMONARY: Unlabored respirations. Good breath sounds bilaterally. No audible rales rhonchi or wheezing was noted. CARDIOVASCULAR: There is a regular rate and rhythm without any murmurs gallops or rubs. ABDOMEN: Soft and nontender with normal bowel sounds. No palpable organomegaly was noted. There is no palpable pulsatile mass. SKIN: Skin is clear with no lesions or rashes and otherwise unremarkable. NEUROLOGIC: Patient is alert and oriented x3. Cranial nerves II through XII are grossly intact. Motor and sensory are also intact. Normal speech, volume and content. Symmetrical smile. MUSCULOSKELETAL: Normal extremities with adequate strength and full range of motion. No lower extremity swelling or edema. No calf tenderness. LYMPHATICS: No significant lymphadenopathy is noted PSYCHIATRIC: Patient is tearful throughout the interview and is extremely anxious Limitations: no limitations Course Vital Signs 10/28/20 10/28/20 09:32 11:31 Temperature 98 F Pulse Rate 85 84 Respiratory 18 19 Rate Blood Pressure 160/106 111/59 O2 Sat by Pulse 99 97 Oximetry Medical Decision Making - Medical Decision Making EKG shows a paced rhythm at 91 bpm MA interval 126 QRS is under 2 QT interval 396 QTC is 487 per patient's EKG shows no ST segment elevation or depression. Chest x-ray shows no acute abnormality - Lab Data Result diagrams: 10/28/20 10:44 12/25/20 10:44 Lab Results 10/28/20 10/28/20 10/28/20 Range/Units 10:44 10:44 10:44 WBC 4.3 (3.8-10.6) k/uL RBC 4.88 (3.80-5.40) m/uL Hgb 15.3 (11.4-16.0) gm/dL Hct 46.5 H (34.0-46.0) % MCV 95.2 (80.0-100.0) fL MCH 31.4 (25.0-35.0) pg MCHC 33.0 (31.0-37.0) g/dL RDW 12.3 (11.5-15.5) % Plt Count 245 (150-450) k/uL MPV 7.0 Neutrophils % 71 % Lymphocytes % 20 % Monocytes % 5 % Eosinophils % 1 % Basophils % 1 % Neutrophils # 3.0 (1.3-7.7) k/uL Lymphocytes # 0.9 L (1.0-4.8) k/uL Monocytes # 0.2 (0-1.0) k/uL Eosinophils # 0.1 (0-0.7) k/uL Basophils # 0.0 (0-0.2) k/uL PT 9.6 (9.0-12.0) sec INR 0.9 (<1.2) APTT 24.9 (22.0-30.0) sec Sodium 140 (137-145) mmol/L Potassium 4.3 (3.5-5.1) mmol/L Chloride 108 H (98-107) mmol/L Carbon Dioxide 25 (22-30) mmol/L Anion Gap 7 mmol/L BUN 14 (7-17) mg/dL Creatinine 0.48 L (0.52-1.04) mg/dL Est GFR (CKD-EPI)AfAm >90 (>60 ml/min/1.73 sqM) Est GFR (CKD-EPI)NonAf >90 (>60 ml/min/1.73 sqM) Glucose 117 H (74-99) mg/dL Calcium 10.0 (8.4-10.2) mg/dL Magnesium 1.8 (1.6-2.3) mg/dL Total Bilirubin 0.5 (0.2-1.3) mg/dL AST 31 (14-36) U/L ALT 35 H (4-34) U/L Alkaline Phosphatase 107 (38-126) U/L Troponin I (0.000-0.034) ng/mL Total Protein 7.2 (6.3-8.2) g/dL Albumin 4.3 (3.5-5.0) g/dL TSH <0.015 L (0.465-4.680) mIU/L 10/28/20 Range/Units 10:44 WBC (3.8-10.6) k/uL RBC (3.80-5.40) m/uL Hgb (11.4-16.0) gm/dL Hct (34.0-46.0) % MCV (80.0-100.0) fL MCH (25.0-35.0) pg MCHC (31.0-37.0) g/dL RDW (11.5-15.5) % Plt Count (150-450) k/uL MPV Neutrophils % % Lymphocytes % % Monocytes % % Eosinophils % % Basophils % % Neutrophils # (1.3-7.7) k/uL Lymphocytes # (1.0-4.8) k/uL Monocytes # (0-1.0) k/uL Eosinophils # (0-0.7) k/uL Basophils # (0-0.2) k/uL PT (9.0-12.0) sec INR (<1.2) APTT (22.0-30.0) sec Sodium (137-145) mmol/L Potassium (3.5-5.1) mmol/L Chloride (98-107) mmol/L Carbon Dioxide (22-30) mmol/L Anion Gap mmol/L BUN (7-17) mg/dL Creatinine (0.52-1.04) mg/dL Est GFR (CKD-EPI)AfAm (>60 ml/min/1.73 sqM) Est GFR (CKD-EPI)NonAf (>60 ml/min/1.73 sqM) Glucose (74-99) mg/dL Calcium (8.4-10.2) mg/dL Magnesium (1.6-2.3) mg/dL Total Bilirubin (0.2-1.3) mg/dL AST (14-36) U/L ALT (4-34) U/L Alkaline Phosphatase (38-126) U/L Troponin I <0.012 (0.000-0.034) ng/mL Total Protein (6.3-8.2) g/dL Albumin (3.5-5.0) g/dL TSH (0.465-4.680) mIU/L Disposition Clinical Impression: Palpitations, Anxiety Disposition: HOME SELF-CARE Instructions (If sedation given, give patient instructions): Heart Palpitations (ED), Anxiety (ED) Is patient prescribed a controlled substance at d/c from ED?: No Referrals: None,Stated [Primary Care Provider] - 1-2 days Time of Disposition: 12:59
[2020-10-28 10:52] LABS: Basophils % (A) 1 %; Eosinophils # (A) 0.1 k/uL (0-0.7); Eosinophils % (A) 1 %; HCT 46.5 % (34.0-46.0); HGB 15.3 gm/dL (11.4-16.0); Lymphocytes # (A) 0.9 k/uL (1.0-4.8); Lymphocytes % (A) 20 %; MCH 31.4 pg (25.0-35.0); MCV 95.2 fL (80.0-100.0); Monocytes # (A) 0.2 k/uL (0-1.0); Monocytes % (A) 5 %; Neutrophils % (A) 71 %; Platelet Count 245 k/uL (150-450); RBC 4.88 m/uL (3.80-5.40); RDW 12.3 % (11.5-15.5); WBC 4.3 k/uL (3.8-10.6)
[2020-10-28 11:01] LABS: ALT 35 U/L (4-34); AST 31 U/L (14-36); African American GFR (CKD) >90 (>60 ml/min/1.73 sqM); Albumin 4.3 g/dL (3.5-5.0); Alkaline Phosphatase 107 U/L (38-126); Anion Gap 7 mmol/L; Blood Urea Nitrogen 14 mg/dL (7-17); Carbon Dioxide 25 mmol/L (22-30); Chloride 108 mmol/L (98-107); Glucose 117 mg/dL (74-99); Magnesium 1.8 mg/dL (1.6-2.3); Non-African American GFR(CKD) >90 (>60 ml/min/1.73 sqM); Potassium 4.3 mmol/L (3.5-5.1); Sodium 140 mmol/L (137-145); Total Bilirubin 0.5 mg/dL (0.2-1.3); Total Protein 7.2 g/dL (6.3-8.2)
[2020-10-28 11:09] LABS: INR 0.9 (<1.2); Partial Thromboplastin Time 24.9 sec (22.0-30.0); Prothrombin Time 9.6 sec (9.0-12.0)
--- NOTE | 2020-10-28 11:48 | XR ---
EXAM: XR Chest, 2 Views CLINICAL HISTORY: ITS.REASON XR Reason: dysrhythmia TECHNIQUE: Frontal and lateral views of the chest. COMPARISON: Chest x-ray dated 04/06/20 FINDINGS: Lungs: Emphysematous changes are once again seen with some scarring in the lung bases. No acute infiltrate. Likely nipple shadows seen just above the costophrenic angles bilaterally. Pleural space: Unremarkable. No pneumothorax. Heart: Unremarkable. No cardiomegaly. Mediastinum: Unremarkable. Bones/joints: Unremarkable. Vasculature: Atherosclerosis of the aorta. Tubes, lines and devices: Left-sided cardiac pacing device. IMPRESSION: Emphysematous changes are once again seen with some scarring in the lung bases. No acute infiltrate. Likely nipple shadows seen just above the costophrenic angles bilaterally. Confirmation could be performed with nipple markers if indicated.
[2020-10-28 13:14] VITALS: BP 128/58; PULSE 92; RESP 20; TEMP 97.8
== END 2020-10-28 13:10 | disposition home or self-care (01) ==
LOC: EC 09:28
DX: R00.2 Palpitations (principal); R53.1 Weakness; R06.02 Shortness of breath; F41.9 Anxiety disorder, unspecified; Z79.899 Other long term (current) drug therapy; Z88.1 Allergy status to other antibiotic agents; Z88.2 Allergy status to sulfonamides; Z88.8 Allergy status to other drugs, medicaments and biological substances; Z95.810 Presence of automatic (implantable) cardiac defibrillator
CPT/HCPCS: 36415; 93005; 80053; 83735; 84443; 84484; 85025; 85610; 85730; 71046; 99285; 96374; 96361; J2060

== ENCOUNTER 2021-02-16 18:23 | Emergency (ER) | payer BC ==
[2021-02-16 18:30] VITALS: RESP 18; TEMP 98.2
--- NOTE | 2021-02-16 19:52 | ED ---
General Adult HPI - General Chief complaint: Arrhythmia/Palpitations Stated complaint: AFib, Syncope Time Seen by Provider: 02/16/21 19:31 Source: patient Mode of arrival: wheelchair Limitations: no limitations - History of Present Illness Initial comments: Dictation was produced using [employer] dictation software. please excuse any grammatical, word or spelling errors. This patient was cared for during a federal and state declared state of emerge ncy secondary to Covid 19 Chief Complaint: 65-year-old female past medical history of A. fib, coronary artery disease, AICD this emergency department for generalized weakness, nausea and palpitations. History of Present Illness: 65-year-old female she states she was recently diagnosed with A. fib back in October. She has an AICD. She states that today before dinner she began having symptoms of palpitations. She states that her symptoms are severe. She was diagnosed with A. fib recently she does not take any anticoagulation. Supposedly patient had an episode of syncope on the way to the emergency department. She had to contact her concrete spreader did not get a call back. The ROS documented in this emergency department record has been reviewed and confirmed by me. Those systems with pertinent positive or negative responses have been documented in the HPI. All other systems are other negative and/or noncontributory. PHYSICAL EXAM: General Impression: Alert and oriented x3, not in acute distress HEENT: Normocephalic atraumatic, extra-ocular movements intact, pupils equal and reactive to light bilaterally, mucous membranes moist. Cardiovascular: Heart regular rate and rhythm Chest: Able to complete full sentences, no retractions, no tachypnea Abdomen: abdomen soft, non-tender, non-distended, no organomegaly Musculoskeletal: Pulses present and equal in all extremities, no peripheral edema Motor: no focal deficits noted Neurological: CN II-XII grossly intact, no focal motor or sensory deficits noted Skin: Intact with no visualized rashes Psych: Anxious ED course: 65-year-old female presents with chief complaint of palpitations. Vital signs upon arrival are within acceptable limits. I bedside over her heart rate has been tachycardic in the low 100s. She does appear to be significantly anxious. She reports having been diagnosed with H fibrillation in the past. Present patient was admitted to our hospital in June last year for similar presentation. Patient at that time had her beta blockers increased she was discharged home. Laboratory evaluation obtained. CBC, coag panel metabolic panel is unremarkable. No electrolyte derangement. Urinalysis is negative. Chest x-ray is nonacute. Repeat vital signs performed at 920 shows heart rate of 94. EKG shows atrial sense ventricular paced rhythm. Heart rate of 109. EKG similar to EKG from 10/28/2020. AICD interrogation was performed. There were no documented acute events from today at around 5 PM when patient states that her symptoms occurred. She is agreeable for discharge because she is deathly afraid of agustin COVID-19. Discussed with patient disposition options. He is told to follow closely with cardiology. She does not have a primary care physician. She is given referral to Dr. Estevez who takes care of patient's . EKG interpretation: Ventricular rate 109, ventricular paced rhythm,. 120, QRS 116, ATC 482. No NM prolongation, no QTC prolongation, no ST or T-wave changes noted. EKG compared to 10/28/2020 showing no changes. Overall, this EKG is unremarkable - Related Data Home Medications Medication Instructions Recorded Confirmed Acetaminophen Tab [Tylenol] 500 mg PO Q6HR PRN 03/05/20 02/16/21 LORazepam [Ativan] 1 - 2 mg PO QID PRN 04/06/20 02/16/21 Metoprolol Succinate (ER) [Toprol 25 mg PO BID 10/28/20 02/16/21 Xl] Allergies Allergy/AdvReac Type Severity Reaction Status Date / Time azithromycin Allergy Unknown Verified 02/16/21 20:18 Sulfa (Sulfonamide Allergy Unknown Verified 02/16/21 20:18 Antibiotics) amiodarone AdvReac DIZZY Verified 02/16/21 20:18 fentanyl AdvReac Confusion, Verified 02/16/21 20:20 Anxiety,"[place] like her head was going to explode" losartan AdvReac DIZZY Verified 02/16/21 20:18 oxycodone AdvReac Confusion, Verified 02/16/21 20:20 Anxiety,"[place] like her head was going to explode" Review of Systems ROS Statement: Those systems with pertinent positive or pertinent negative responses have been documented in the HPI. ROS Other: All systems not noted in ROS Statement are negative. Past Medical History Past Medical History: Atrial Fibrillation, Coronary Artery Disease (CAD) History of Any Multi-Drug Resistant Organisms: None Reported Past Surgical History: AICD, Pacemaker Additional Past Surgical History / Comment(s): Multiple ovarian surgeries. Type of Cardiac Device: AICD Device Placement Date:: 03/05/2020 Past Psychological History: Anxiety, Panic Disorder Smoking Status: Never smoker Past Alcohol Use History: None Reported Past Drug Use History: None Reported - Past Family History Mother History Unknown: Yes Family Medical History: CVA/TIA Father History Unknown: Yes Family Medical History: Cancer General Exam Limitations: no limitations Course Vital Signs 02/16/21 02/16/21 18:27 21:18 Temperature 98.2 F Pulse Rate 85 94 Respiratory 18 18 Rate Blood Pressure 150/70 138/87 O2 Sat by Pulse 99 97 Oximetry Medical Decision Making - Lab Data Result diagrams: 02/16/21 20:09 02/16/21 20:09 Lab Results 02/16/21 02/16/21 02/16/21 Range/Units 20:09 20:09 20:09 WBC 7.9 (3.8-10.6) k/uL RBC 4.70 (3.80-5.40) m/uL Hgb 15.1 (11.4-16.0) gm/dL Hct 43.9 (34.0-46.0) % MCV 93.5 (80.0-100.0) fL MCH 32.2 (25.0-35.0) pg MCHC 34.5 (31.0-37.0) g/dL RDW 12.4 (11.5-15.5) % Plt Count 230 (150-450) k/uL MPV 7.5 Neutrophils % 75 % Lymphocytes % 15 % Monocytes % 8 % Eosinophils % 1 % Basophils % 0 % Neutrophils # 5.9 (1.3-7.7) k/uL Lymphocytes # 1.2 (1.0-4.8) k/uL Monocytes # 0.6 (0-1.0) k/uL Eosinophils # 0.1 (0-0.7) k/uL Basophils # 0.0 (0-0.2) k/uL PT 9.7 (9.0-12.0) sec INR 0.9 (<1.2) APTT 24.6 (22.0-30.0) sec Sodium 138 (137-145) mmol/L Potassium 4.4 (3.5-5.1) mmol/L Chloride 106 (98-107) mmol/L Carbon Dioxide 24 (22-30) mmol/L Anion Gap 8 mmol/L BUN 17 (7-17) mg/dL Creatinine 0.43 L (0.52-1.04) mg/dL Est GFR (CKD-EPI)AfAm >90 (>60 ml/min/1.73 sqM) Est GFR (CKD-EPI)NonAf >90 (>60 ml/min/1.73 sqM) Glucose 111 H (74-99) mg/dL Calcium 10.2 (8.4-10.2) mg/dL Magnesium 2.0 (1.6-2.3) mg/dL Total Bilirubin 0.5 (0.2-1.3) mg/dL AST 44 H (14-36) U/L ALT 75 H (4-34) U/L Alkaline Phosphatase 169 H (38-126) U/L Troponin I (0.000-0.034) ng/mL Total Protein 7.3 (6.3-8.2) g/dL Albumin 4.5 (3.5-5.0) g/dL Urine Color Urine Appearance (Clear) Urine pH (5.0-8.0) Ur Specific [place] (1.001-1.035) Urine Protein (Negative) Urine Glucose (UA) (Negative) Urine Ketones (Negative) Urine Blood (Negative) Urine Nitrite (Negative) Urine Bilirubin (Negative) Urine Urobilinogen (<2.0) mg/dL Ur Leukocyte Esterase (Negative) 02/16/21 02/16/21 Range/Units 20:09 20:09 WBC (3.8-10.6) k/uL RBC (3.80-5.40) m/uL Hgb (11.4-16.0) gm/dL Hct (34.0-46.0) % MCV (80.0-100.0) fL MCH (25.0-35.0) pg MCHC (31.0-37.0) g/dL RDW (11.5-15.5) % Plt Count (150-450) k/uL MPV Neutrophils % % Lymphocytes % % Monocytes % % Eosinophils % % Basophils % % Neutrophils # (1.3-7.7) k/uL Lymphocytes # (1.0-4.8) k/uL Monocytes # (0-1.0) k/uL Eosinophils # (0-0.7) k/uL Basophils # (0-0.2) k/uL PT (9.0-12.0) sec INR (<1.2) APTT (22.0-30.0) sec Sodium (137-145) mmol/L Potassium (3.5-5.1) mmol/L Chloride (98-107) mmol/L Carbon Dioxide (22-30) mmol/L Anion Gap mmol/L BUN (7-17) mg/dL Creatinine (0.52-1.04) mg/dL Est GFR (CKD-EPI)AfAm (>60 ml/min/1.73 sqM) Est GFR (CKD-EPI)NonAf (>60 ml/min/1.73 sqM) Glucose (74-99) mg/dL Calcium (8.4-10.2) mg/dL Magnesium (1.6-2.3) mg/dL Total Bilirubin (0.2-1.3) mg/dL AST (14-36) U/L ALT (4-34) U/L Alkaline Phosphatase (38-126) U/L Troponin I <0.012 (0.000-0.034) ng/mL Total Protein (6.3-8.2) g/dL Albumin (3.5-5.0) g/dL Urine Color Colorless Urine Appearance Clear (Clear) Urine pH 5.5 (5.0-8.0) Ur Specific [place] <1.000 L (1.001-1.035) Urine Protein Negative (Negative) Urine Glucose (UA) Negative (Negative) Urine Ketones Negative (Negative) Urine Blood Negative (Negative) Urine Nitrite Negative (Negative) Urine Bilirubin Negative (Negative) Urine Urobilinogen <2.0 (<2.0) mg/dL Ur Leukocyte Esterase Negative (Negative) Disposition Clinical Impression: Palpitations Disposition: HOME SELF-CARE Condition: Fair Instructions (If sedation given, give patient instructions): Heart Palpitations (ED) Is patient prescribed a controlled substance at d/c from ED?: No Referrals: Gerardo Aguero MD [STAFF PHYSICIAN] - 1-2 days Yolanda Hernandes MD [STAFF PHYSICIAN] - 1-2 days Time of Disposition: 21:51
[2021-02-16 20:29] LABS: Basophils % (A) 0 %; Eosinophils # (A) 0.1 k/uL (0-0.7); Eosinophils % (A) 1 %; HCT 43.9 % (34.0-46.0); HGB 15.1 gm/dL (11.4-16.0); Lymphocytes # (A) 1.2 k/uL (1.0-4.8); Lymphocytes % (A) 15 %; MCH 32.2 pg (25.0-35.0); MCHC 34.5 g/dL (31.0-37.0); MCV 93.5 fL (80.0-100.0); Mean Platelet Volume 7.5; Monocytes # (A) 0.6 k/uL (0-1.0); Monocytes % (A) 8 %; Neutrophils # (A) 5.9 k/uL (1.3-7.7); Neutrophils % (A) 75 %; Platelet Count 230 k/uL (150-450); RDW 12.4 % (11.5-15.5); WBC 7.9 k/uL (3.8-10.6)
[2021-02-16 20:38] LABS: INR 0.9 (<1.2); Partial Thromboplastin Time 24.6 sec (22.0-30.0); Prothrombin Time 9.7 sec (9.0-12.0)
[2021-02-16 20:39] LABS: ALT 75 U/L (4-34); AST 44 U/L (14-36); African American GFR (CKD) >90 (>60 ml/min/1.73 sqM); Albumin 4.5 g/dL (3.5-5.0); Alkaline Phosphatase 169 U/L (38-126); Anion Gap 8 mmol/L; Blood Urea Nitrogen 17 mg/dL (7-17); Calcium 10.2 mg/dL (8.4-10.2); Carbon Dioxide 24 mmol/L (22-30); Chloride 106 mmol/L (98-107); Glucose 111 mg/dL (74-99); Non-African American GFR(CKD) >90 (>60 ml/min/1.73 sqM); Potassium 4.4 mmol/L (3.5-5.1); Sodium 138 mmol/L (137-145); Total Bilirubin 0.5 mg/dL (0.2-1.3); Total Protein 7.3 g/dL (6.3-8.2)
[2021-02-16 20:45] LABS: Appearance,Urine Clear (Clear); Bilirubin,Urine Negative (Negative); Blood,Urine Negative (Negative); Color,Urine Colorless; Glucose,Urine (UA) Negative (Negative); Ketones,Urine Negative (Negative); Leukocyte Esterase,Urine Negative (Negative); Nitrite,Urine Negative (Negative); PH, Urine 5.5 (5.0-8.0); Protein,Urine Negative (Negative); Specific Gravity,Urine <1.000 (1.001-1.035); Urobilinogen,Urine <2.0 mg/dL (<2.0)
[2021-02-16] MEDS ORDERED: MECLIZINE 12.5 MG TAB PO STA (21:06)
--- NOTE | 2021-02-16 21:06 | XR ---
EXAMINATION: XR chest 1V portable DATE AND TIME: 02/16/2021 7:57 PM CLINICAL INDICATION: PHH; dysrhythmia TECHNIQUE: AP upright portable COMPARISON: 10/28/2020 FINDINGS: Cardiac pacemaker redemonstrated. The lungs are clear. The pleural spaces are negative. The cardiac silhouette is not enlarged. The remainder of the mediastinal silhouette is unremarkable. The skeletal structures and soft tissues are negative for acute findings. IMPRESSION: NO ACUTE PROCESS.
[2021-02-16 21:19] VITALS: BP 138/87; PULSE 94
== END 2021-02-16 22:41 | disposition home or self-care (01) ==
LOC: EC 18:23
DX: R00.2 Palpitations (principal); F41.9 Anxiety disorder, unspecified; I25.10 Atherosclerotic heart disease of native coronary artery without angina pectoris; I48.91 Unspecified atrial fibrillation; Z79.899 Other long term (current) drug therapy
CPT/HCPCS: 36415; 71045; 80053; 81003; 83735; 84484; 85025; 85610; 85730; 93005; 99285

== ENCOUNTER 2022-02-13 07:17 | Inpatient (IN) | payer MEDICARE, BC ==
[2022-02-13 07:22] VITALS: TEMP 98
[2022-02-13] MEDS ORDERED: AMOXIC-POT CLAV 875-125MG 1 EACH TAB PO STA (07:43)
--- NOTE | 2022-02-13 07:48 | ED ---
General Adult HPI - General Chief complaint: Chest Pain Stated complaint: abnormal hr Time Seen by Provider: 02/13/22 07:20 Source: patient, RN notes reviewed, old records reviewed Mode of arrival: ambulatory Limitations: no limitations - History of Present Illness Initial comments: This is a 66-year-old female who presents emergency department stating that she passed out this morning. Patient states when she put her pulse oximeter on her finger heart rate was down to 40. Patient states it happened twice this morning second time she got lightheaded but did not pass out. Patient states she also has some chest discomfort and she felt mildly short of breath earlier today. Patient denies any fever chills or cough. Patient states prior to that she was feeling fine but occasionally her heart rate will get low and she'll feel very lightheaded. Patient states she has complained about this before. Patient denies any abdominal pain patient denies nausea vomiting or diarrhea. Patient also complains that she has a small area of redness above her upper left incisor and if you press on the pus comes out. Patient states this is been an ongoing issue with her and no one seems to have addressed. Patient states currently she is not having any palpitations or feeling lightheaded. - Related Data Home Medications Medication Instructions Recorded Confirmed LORazepam [Ativan] 1 mg PO QID 04/06/20 02/13/22 Metoprolol Succinate (ER) [Toprol 25 mg PO BID 10/28/20 02/13/22 Xl] Allergies Allergy/AdvReac Type Severity Reaction Status Date / Time azithromycin Allergy Unknown Verified 02/13/22 08:15 Sulfa (Sulfonamide Allergy Unknown Verified 02/13/22 08:15 Antibiotics) amiodarone AdvReac DIZZY Verified 02/13/22 08:15 fentanyl AdvReac Confusion, Verified 02/13/22 08:15 Anxiety,"Craig like her head was going to explode" losartan AdvReac DIZZY Verified 02/13/22 08:15 oxycodone AdvReac Confusion, Verified 02/13/22 08:15 Anxiety,"Craig like her head was going to explode" Review of Systems ROS Statement: Those systems with pertinent positive or pertinent negative responses have been documented in the HPI. ROS Other: All systems not noted in ROS Statement are negative. Past Medical History Past Medical History: Atrial Fibrillation, Coronary Artery Disease (CAD) History of Any Multi-Drug Resistant Organisms: None Reported Past Surgical History: AICD, Pacemaker Additional Past Surgical History / Comment(s): Multiple ovarian surgeries. Type of Cardiac Device: AICD Device Placement Date:: 03/05/2020 Past Psychological History: Anxiety, Panic Disorder Smoking Status: Never smoker Past Alcohol Use History: None Reported Past Drug Use History: None Reported - Past Family History Mother History Unknown: Yes Family Medical History: CVA/TIA Father History Unknown: Yes Family Medical History: Cancer General Exam - General Exam Comments Initial Comments: GENERAL: Patient is well-developed and well-nourished. Patient is nontoxic and well-hydrated and is in mild distress. ENT: Neck is soft and supple. No significant lymphadenopathy is noted. Oropharynx is clear. Moist mucous membranes. Neck has full range of motion without eliciting any pain. About the patient's left incisors area of redness and if she pressed on this area of redness is a little bit of pus that is expressed. EYES: The sclera were anicteric and conjunctiva were pink and moist. Extraocular movements were intact and pupils were equal round and reactive to light. Eyelids were unremarkable. PULMONARY: Unlabored respirations. Good breath sounds bilaterally. No audible rales rhonchi or wheezing was noted. CARDIOVASCULAR: Patient is tachycardic at about 110 beats a minute ABDOMEN: Soft and nontender with normal bowel sounds. SKIN: Skin is clear with no lesions or rashes and otherwise unremarkable. NEUROLOGIC: Patient is alert and oriented x3. Cranial nerves II through XII are grossly intact. Motor and sensory are also intact. Normal speech, volume and content. Symmetrical smile. MUSCULOSKELETAL: Normal extremities with adequate strength and full range of motion. No lower extremity swelling or edema. No calf tenderness. LYMPHATICS: No significant lymphadenopathy is noted PSYCHIATRIC: Patient is very emotional and seems very anxious Limitations: no limitations Course Vital Signs 02/13/22 02/13/22 07:19 08:11 Temperature 98 F Pulse Rate 70 109 H Respiratory 20 16 Rate Blood Pressure 142/82 139/82 O2 Sat by Pulse 99 98 Oximetry Medical Decision Making - Medical Decision Making EKG shows a paced rhythm at 106 bpm AK interval 220 QRS is 130 QT interval is 364 QTC is 426. Patient's EKG shows no ST segment elevation or depression. - Lab Data Result diagrams: 02/13/22 07:54 02/13/22 07:54 Lab Results 02/13/22 02/13/22 02/13/22 Range/Units 07:54 07:54 07:54 WBC 5.1 (3.8-10.6) k/uL RBC 4.63 (3.80-5.40) m/uL Hgb 15.3 (11.4-16.0) gm/dL Hct 45.2 (34.0-46.0) % MCV 97.7 (80.0-100.0) fL MCH 33.1 (25.0-35.0) pg MCHC 33.9 (31.0-37.0) g/dL RDW 12.6 (11.5-15.5) % Plt Count 243 (150-450) k/uL MPV 7.6 Neutrophils % 52 % Lymphocytes % 35 % Monocytes % 7 % Eosinophils % 2 % Basophils % 1 % Neutrophils # 2.7 (1.3-7.7) k/uL Lymphocytes # 1.8 (1.0-4.8) k/uL Monocytes # 0.4 (0-1.0) k/uL Eosinophils # 0.1 (0-0.7) k/uL Basophils # 0.0 (0-0.2) k/uL PT 9.7 (9.0-12.0) sec INR 0.9 (<1.2) APTT 25.3 (22.0-30.0) sec Sodium 135 L (137-145) mmol/L Potassium 3.7 (3.5-5.1) mmol/L Chloride 103 (98-107) mmol/L Carbon Dioxide 21 L (22-30) mmol/L Anion Gap 11 mmol/L BUN 15 (7-17) mg/dL Creatinine 0.52 (0.52-1.04) mg/dL Est GFR (CKD-EPI)AfAm >90 (>60 ml/min/1.73 sqM) Est GFR (CKD-EPI)NonAf >90 (>60 ml/min/1.73 sqM) Glucose 104 H (74-99) mg/dL Calcium 9.5 (8.4-10.2) mg/dL Magnesium 1.8 (1.6-2.3) mg/dL Total Bilirubin 0.6 (0.2-1.3) mg/dL AST 36 (14-36) U/L ALT 40 H (4-34) U/L Alkaline Phosphatase 132 H (38-126) U/L Troponin I (0.000-0.034) ng/mL Total Protein 7.4 (6.3-8.2) g/dL Albumin 4.2 (3.5-5.0) g/dL 02/13/22 Range/Units 07:54 WBC (3.8-10.6) k/uL RBC (3.80-5.40) m/uL Hgb (11.4-16.0) gm/dL Hct (34.0-46.0) % MCV (80.0-100.0) fL MCH (25.0-35.0) pg MCHC (31.0-37.0) g/dL RDW (11.5-15.5) % Plt Count (150-450) k/uL MPV Neutrophils % % Lymphocytes % % Monocytes % % Eosinophils % % Basophils % % Neutrophils # (1.3-7.7) k/uL Lymphocytes # (1.0-4.8) k/uL Monocytes # (0-1.0) k/uL Eosinophils # (0-0.7) k/uL Basophils # (0-0.2) k/uL PT (9.0-12.0) sec INR (<1.2) APTT (22.0-30.0) sec Sodium (137-145) mmol/L Potassium (3.5-5.1) mmol/L Chloride (98-107) mmol/L Carbon Dioxide (22-30) mmol/L Anion Gap mmol/L BUN (7-17) mg/dL Creatinine (0.52-1.04) mg/dL Est GFR (CKD-EPI)AfAm (>60 ml/min/1.73 sqM) Est GFR (CKD-EPI)NonAf (>60 ml/min/1.73 sqM) Glucose (74-99) mg/dL Calcium (8.4-10.2) mg/dL Magnesium (1.6-2.3) mg/dL Total Bilirubin (0.2-1.3) mg/dL AST (14-36) U/L ALT (4-34) U/L Alkaline Phosphatase (38-126) U/L Troponin I <0.012 (0.000-0.034) ng/mL Total Protein (6.3-8.2) g/dL Albumin (3.5-5.0) g/dL Disposition Clinical Impression: Dental abscess, Syncope, Bradycardia Disposition: ADMITTED IP TO THIS HOSP Referrals: None,Stated [Primary Care Provider] - 1-2 days Time of Disposition: 08:57
[2022-02-13] MEDS ORDERED: LORazepam 2 MG/ML INJ IV STA (07:49)
[2022-02-13 08:07] LABS: Basophils % (A) 1 %; Eosinophils # (A) 0.1 k/uL (0-0.7); Eosinophils % (A) 2 %; HCT 45.2 % (34.0-46.0); HGB 15.3 gm/dL (11.4-16.0); Lymphocytes # (A) 1.8 k/uL (1.0-4.8); Lymphocytes % (A) 35 %; MCH 33.1 pg (25.0-35.0); MCHC 33.9 g/dL (31.0-37.0); MCV 97.7 fL (80.0-100.0); Mean Platelet Volume 7.6; Monocytes # (A) 0.4 k/uL (0-1.0); Monocytes % (A) 7 %; Neutrophils # (A) 2.7 k/uL (1.3-7.7); Neutrophils % (A) 52 %; Platelet Count 243 k/uL (150-450); RBC 4.63 m/uL (3.80-5.40); RDW 12.6 % (11.5-15.5); WBC 5.1 k/uL (3.8-10.6)
--- NOTE | 2022-02-13 08:09 | XR ---
EXAMINATION TYPE: XR chest 2V DATE OF EXAM: 02/13/2022 COMPARISON: 02/16/2021 HISTORY: 66-year-old female with chest pain TECHNIQUE: AP and lateral views FINDINGS: Left anterior chest wall AICD generator with right atrial, right ventricular, and coronary sinus lead s. Heart normal size. Hyperinflation. No consolidation or pleural effusion. IMPRESSION: COPD. No acute process seen.
[2022-02-13 08:20] LABS: ALT 40 U/L (4-34); AST 36 U/L (14-36); African American GFR (CKD) >90 (>60 ml/min/1.73 sqM); Albumin 4.2 g/dL (3.5-5.0); Alkaline Phosphatase 132 U/L (38-126); Anion Gap 11 mmol/L; Blood Urea Nitrogen 15 mg/dL (7-17); Calcium 9.5 mg/dL (8.4-10.2); Carbon Dioxide 21 mmol/L (22-30); Chloride 103 mmol/L (98-107); Glucose 104 mg/dL (74-99); Magnesium 1.8 mg/dL (1.6-2.3); Non-African American GFR(CKD) >90 (>60 ml/min/1.73 sqM); Potassium 3.7 mmol/L (3.5-5.1); Sodium 135 mmol/L (137-145); Total Bilirubin 0.6 mg/dL (0.2-1.3); Total Protein 7.4 g/dL (6.3-8.2)
[2022-02-13 08:21] LABS: INR 0.9 (<1.2); Partial Thromboplastin Time 25.3 sec (22.0-30.0); Prothrombin Time 9.7 sec (9.0-12.0)
[2022-02-13] MEDS ORDERED: KETOROLAC 15 MG/ML 1 ML VIAL IVP STA (08:59)
[2022-02-13] MEDS ORDERED: SODIUM CHLORIDE 0.9% 1,000 ML IV ONE (09:10)
[2022-02-13] MEDS ORDERED: POTASSIUM CHLORIDE ER 20 MEQ TAB.ER PO STA (10:28)
[2022-02-13] MEDS ORDERED: METOPROLOL SUCCINATE (ER) 25 MG TAB.ER.24H PO SCH (10:30)
--- NOTE | 2022-02-13 11:24 | P.CRDCN ---
History of Present Illness History of present illness: HISTORY OF PRESENTING ILLNESS This is a pleasant 66-year-old female past medical history significant for biventricular ICD placement in 03/2020, [place], prolonged QT interval, second-degree AV block, paroxysmal atrial tachycardia, PVCs, hypertension. She follows in the office with keiko. We have been asked to see in consultation for syncope. Patient presents to the emergency department with complaints of palpitations, severe fluctuations in her heart rate via her pulse oximeter HR 40s-100s. Also with complaints of dizziness and lightheadedness. No chest pain, shes states she just feels an "overwhelming" feeling in the side of her chest. She denies any loss of consciousness, diaphoresis, nausea, vomiting. She states she was supposed to undergo defibrillation level testing under anesthesia with Dr. Aguero however she canceled this procedure due to anxiety/stress over the procedure. DIAGNOSTICS EKG reveals atrial sensed and V paced rhythm heart rate 106. Telemetry tracings indicate pace rhythm no bradycardia seen Device Interrogation today revealed no acute events, no significant bradycardia, Device is functioning normally Chest xray no acute cardiopulmonary process. Most recent echo 05/2020 revealed EF of greater than 55%, no significant wall motion abnormalities Laboratory reviewed, CBC unremarkable, troponin negative, sodium 135, potassium 3.7, BUN 15, serum creatinine 0.5 Current cardiac medications include metoprolol succinate 25 mg twice a day REVIEW OF SYSTEMS At the time of my exam: CONSTITUTIONAL: Denies fever or chills. CARDIOVASCULAR: Denies chest pain, shortness of breath, orthopnea, PND or palpitations. RESPIRATORY: Denies cough. GASTROINTESTINAL: Denies abdominal pain, diarrhea, constipation, nausea or vomiting. MUSCULOSKELETAL: Denies myalgias. NEUROLOGIC: Denies numbness, tingling, headache or weakness. ENDOCRINE: Denies fatigue, weight change, polydipsia or polyurina. GENITOURINARY: Denies burning, hematuria or urgency with micturation. HEMATOLOGIC: Denies history of anemia or bleeding. PHYSICAL EXAMINATION Blood pressure 119/90, heart rate 106, afebrile, oxygen saturation is 90% room air CONSTITUTIONAL: No apparent distress. HEENT: Head is normocephalic. Pupils are equal, round. Sclerae anicteric. Mucous membranes of the mouth are moist. No JVD. No carotid bruit. CHEST EXAMINATION: Lungs are clear to auscultation. No chest wall tenderness is noted on palpation or with deep breathing. HEART EXAMINATION: Regular rate and rhythm. S1, S2 heard. No murmurs, gallops or rub. ABDOMEN: Soft, nontender. Positive bowel sounds. EXTREMITIES: 2+ peripheral pulses, no lower extremity edema and no calf tenderness. NEUROLOGIC EXAMINATION: Patient is awake, alert and oriented x3. ASSESSMENT Symptoms of palpitations, dizziness, lightheadedness, possible near syncope Status post Biventricular ICD placement in 03/2020 [place] Prolonged QT interval History of Second-degree AV block History of Paroxysmal atrial tachycardia PVCs History of hypertension PLAN Unclear etiology of patient's symptoms at this time. Device interrogated, reviewed by Dr. Lua with no acute events, no significant bradycardia, Device is functioning normally Monitor on cardiac telemetry for 24 hours Obtain 2D echocardiogram and doppler study to assess cardiac structure and function. Continue metoprolol succinate 25mg BID Consult Dr. Aguero to evaluate patient Further recommendations based on clinical course Nurse practitioner note has been reviewed by physician. Signing provider agrees with the documented findings, assessment, and plan of care. Past Medical History Past Medical History: Atrial Fibrillation, Coronary Artery Disease (CAD) History of Any Multi-Drug Resistant Organisms: None Reported Past Surgical History: AICD, Pacemaker Additional Past Surgical History / Comment(s): Multiple ovarian surgeries. Type of Cardiac Device: AICD Device Placement Date:: 03/05/2020 Past Psychological History: Anxiety, Panic Disorder Smoking Status: Never smoker Past Alcohol Use History: None Reported Past Drug Use History: None Reported - Past Family History Mother History Unknown: Yes Family Medical History: CVA/TIA Father History Unknown: Yes Family Medical History: Cancer Medications and Allergies Home Medications Medication Instructions Recorded Confirmed Type LORazepam [Ativan] 1 mg PO QID 04/06/20 02/13/22 History Metoprolol Succinate (ER) [Toprol 25 mg PO BID 10/28/20 02/13/22 History Xl] Allergies Allergy/AdvReac Type Severity Reaction Status Date / Time azithromycin Allergy Unknown Verified 02/13/22 08:15 Sulfa (Sulfonamide Allergy Unknown Verified 02/13/22 08:15 Antibiotics) amiodarone AdvReac DIZZY Verified 02/13/22 08:15 fentanyl AdvReac Confusion, Verified 02/13/22 08:15 Anxiety,"Waverly like her head was going to explode" losartan AdvReac DIZZY Verified 02/13/22 08:15 oxycodone AdvReac Confusion, Verified 02/13/22 08:15 Anxiety,"Waverly like her head was going to explode" Physical Exam Vitals: Vital Signs Temp Pulse Resp BP Pulse Ox 02/13/22 08:11 109 H 16 139/82 98 02/13/22 07:19 98 F 70 20 142/82 99 Intake and Output 02/12/22 02/13/22 02/13/22 22:59 06:59 14:59 Other: Weight 46.266 kg Results 02/13/22 07:54 02/13/22 07:54 Cardiac Enzymes 02/13/22 02/13/22 Range/Units 07:54 07:54 AST 36 (14-36) U/L Troponin I <0.012 (0.000-0.034) ng/mL Coagulation 02/13/22 Range/Units 07:54 PT 9.7 (9.0-12.0) sec APTT 25.3 (22.0-30.0) sec CBC 02/13/22 Range/Units 07:54 WBC 5.1 (3.8-10.6) k/uL RBC 4.63 (3.80-5.40) m/uL Hgb 15.3 (11.4-16.0) gm/dL Hct 45.2 (34.0-46.0) % Plt Count 243 (150-450) k/uL Comprehensive Metabolic Panel 02/13/22 Range/Units 07:54 Sodium 135 L (137-145) mmol/L Potassium 3.7 (3.5-5.1) mmol/L Chloride 103 (98-107) mmol/L Carbon Dioxide 21 L (22-30) mmol/L BUN 15 (7-17) mg/dL Creatinine 0.52 (0.52-1.04) mg/dL Glucose 104 H (74-99) mg/dL Calcium 9.5 (8.4-10.2) mg/dL AST 36 (14-36) U/L ALT 40 H (4-34) U/L Alkaline Phosphatase 132 H (38-126) U/L Total Protein 7.4 (6.3-8.2) g/dL Albumin 4.2 (3.5-5.0) g/dL Current Medications Generic Name Dose Route Start Last Admin Trade Name Freq PRN Reason Stop Dose Admin Amoxicillin/Clavulanate Potassium 1 each 02/13/22 21:00 Amoxic-Pot Clav 875-125mg 1 Each Tab PO Q12HR NEELIMA Protocol Sodium Chloride 1,000 mls @ 75 mls/hr 02/13/22 09:10 02/13/22 09:15 Saline 0.9% IV 02/13/22 22:29 75 mls/hr .[id number] ONE Administration Metoprolol Succinate 25 mg 02/13/22 10:30 Metoprolol Succinate (Er) 25 Mg Tab.Er.24h PO BID NEELIMA Intake and Output 02/12/22 02/13/22 02/13/22 22:59 06:59 14:59 Other: Weight 46.266 kg Patient Weight 02/14/22 06:59 Weight 46.266 kg 02/13/22 07:54 02/13/22 07:54
--- NOTE | 2022-02-13 12:43 | ECHOF ---
Referral Reason:near syncope MEASUREMENTS -------- HEIGHT: 157.5 cm WEIGHT: 46.3 kg BP: 119/90 RVIDd: 2.4 cm (< 3.3) IVSd: 0.8 cm (0.6 - 1.1) LVIDd: 3.6 cm (3.9 - 5.3) LVPWd: 0.9 cm (0.6 - 1.1) IVSs: 1.3 cm LVIDs: 2.2 cm LVPWs: 1.4 cm LA Diam: 2.5 cm (2.7 - 3.8) Ao Diam: 2.6 cm (2.0 - 3.7) AV Cusp: 1.5 cm (1.5 - 2.6) MV EXCURSION: 14.881 mm (> 18.000) MV EF SLOPE: 54 mm/s (70 - 150) EPSS: 0.8 cm MV E Tyron: 0.65 m/s MV DecT: 371 ms MV A Tyron: 0.80 m/s MV E/A Ratio: 0.82 FINDINGS -------- Sinus rhythm. This was a technically good study. The left ventricular size is normal. Left ventricular wall thickness is normal. Overall left vent ricular systolic function is normal with, an EF between 60 - 65 %. The right ventricle is normal in size. The left atrium is normal in size. The right atrium is normal in size. Interatrial and interventricular septum intact. Aortic valve is trileaflet and is mildly thickened. Mild mitral regurgitation is present. The tricuspid valve appears structurally normal. Unable to estimate RVSP due to inadequate TR jet s pectral doppler profile. Trace/mild (physiologic) pulmonic regurgitation. The aortic root size is normal. Normal inferior vena cava with normal inspiratory collapse consistent with estimated right atrial pre ssure of 5 mmHg. There is no pericardial effusion. CONCLUSIONS -------- 1. The left ventricular size is normal. 2. Left ventricular wall thickness is normal. 3. Overall left ventricular systolic function is normal with, an EF between 60 - 65 %. 4. Aortic valve is trileaflet and is mildly thickened. 5. Mild mitral regurgitation is present. 6. Trace/mild (physiologic) pulmonic regurgitation. 7. There is no pericardial effusion. MOONER: Viridiana Garcia [facility]
--- NOTE | 2022-02-13 13:03 | P.HPIM ---
History of Present Illness H&P Date: 02/13/22 Past Medical History Past Medical History: Atrial Fibrillation, Coronary Artery Disease (CAD) History of Any Multi-Drug Resistant Organisms: None Reported Past Surgical History: AICD, Pacemaker Additional Past Surgical History / Comment(s): Multiple ovarian surgeries. Type of Cardiac Device: AICD Device Placement Date:: 03/05/2020 Past Psychological History: Anxiety, Panic Disorder Smoking Status: Never smoker Past Alcohol Use History: None Reported Past Drug Use History: None Reported - Past Family History Mother History Unknown: Yes Family Medical History: CVA/TIA Father History Unknown: Yes Family Medical History: Cancer Medications and Allergies Home Medications Medication Instructions Recorded Confirmed Type LORazepam [Ativan] 1 mg PO QID 04/06/20 02/13/22 History Metoprolol Succinate (ER) [Toprol 25 mg PO BID 10/28/20 02/13/22 History Xl] Allergies Allergy/AdvReac Type Severity Reaction Status Date / Time azithromycin Allergy Unknown Verified 02/13/22 08:15 Sulfa (Sulfonamide Allergy Unknown Verified 02/13/22 08:15 Antibiotics) amiodarone AdvReac DIZZY Verified 02/13/22 08:15 fentanyl AdvReac Confusion, Verified 02/13/22 08:15 Anxiety,"Cornell like her head was going to explode" losartan AdvReac DIZZY Verified 02/13/22 08:15 oxycodone AdvReac Confusion, Verified 02/13/22 08:15 Anxiety,"Cornell like her head was going to explode" Physical Exam Vitals: Vital Signs Temp Pulse Resp BP Pulse Ox 02/13/22 10:00 106 H 18 119/90 98 02/13/22 08:11 109 H 16 139/82 98 02/13/22 07:19 98 F 70 20 142/82 99 Intake and Output 02/12/22 02/13/22 02/13/22 22:59 06:59 14:59 Other: Weight 46.266 kg Results CBC & Chem 7: 02/13/22 07:54 02/13/22 07:54 Labs: Abnormal Lab Results - Last 24 Hours (Table) 02/13/22 Range/Units 07:54 Sodium 135 L (137-145) mmol/L Carbon Dioxide 21 L (22-30) mmol/L Glucose 104 H (74-99) mg/dL ALT 40 H (4-34) U/L Alkaline Phosphatase 132 H (38-126) U/L
[2022-02-13] MEDS ORDERED: ACETAMINOPHEN TAB 325 MG TAB PO PRN (14:30)
[2022-02-13] MEDS ORDERED: LORazepam 1 MG TAB PO SCH (14:30)
--- NOTE | 2022-02-13 16:31 | P.HPIM ---
History of Present Illness H&P Date: 02/13/22 Chief Complaint: Syncope 66-year-old woman with a history of paroxysmal atrial tachycardia, second-degree AV block, multiple PVCs, torsade de pointes status post AICD who presented to the hospital for evaluation of syncope. Patient says that she was in her usual state of health today, when she started to feel an abnormal feeling on the right side of her chest, then she started feel palpitations, then she had an episode in which she had syncopal. Patient says that she noted that her heart rates were oscillating between 40-110 on her pulse oximeter. She feels quite ov erwhelmed, anxious. Otherwise, she denies fevers, chills, nausea, vomiting, cough, dyspnea, chest pain, abdominal pain, constipation, diarrhea, dysuria, dyschezia, numbness/weakness of extremity is. In the emergency room, patient is afebrile, 142/82, heart rate 70, 99% on room air. CBC, chemistries are unremarkable. LFTs demonstrate mildly elevated alkaline phosphatase and mildly elevated ALT to 40, otherwise unremarkable. Initial troponin was negative. Chest x-ray demonstrates evidence of hyperinflation, COPD, but no acute processes. EKG demonstrates sinus rhythm with an electronically paced ventricle. Echocardiogram was already completed and demonstrates an ejection fraction between 60-65%, normal left ventricular wall thickness, no evidence of diastolic dysfunction, no wall motion abnormality. Cardiology has seen the patient already and recommends EP evaluation; they also evaluated the AICD, and did not note significant bradycardic events or arrhythmias. All Systems reviewed and pertinent positives and negatives noted in HPI, all other symptoms are negative Gen: awake, alert HEENT: normocephalic, atraumatic, good hearing acuity, moist mucous membranes Resp: good air exchange, breathing comfortably with no accessory muscle use CVS: good distal perfusion x 4, GI: soft, NTTP, ND : no SPT, no CVAT, cheung catheter not present MSK: no pitting edema, no clubbing Neuro: non-focal, moving all extremities Psych: cooperative, anxious mood Labs and imaging are reviewed as above. Assessment/plan: Syncope Palpitations History of torsade de pointes status post AICD History of multiple PVCs Paroxysmal atrial tachycardia History of second-degree AV block -Admit to inpatient, telemetry -Orthostatics twice a day -Gen. cardiology, consulted -Electrophysiology consult -Reviewed the echocardiogram as above -Gentle IV fluids -Continue home metoprolol Generalized anxiety/panic disorder -Patient is on standing Ativan -Psych consult to adjust medications as appropriate Patient is full code DVT PPx with enoxaparin Past Medical History Past Medical History: Atrial Fibrillation, Coronary Artery Disease (CAD) History of Any Multi-Drug Resistant Organisms: None Reported Past Surgical History: AICD, Pacemaker Additional Past Surgical History / Comment(s): Multiple ovarian surgeries. Type of Cardiac Device: AICD Device Placement Date:: 03/05/2020 Past Psychological History: Anxiety, Panic Disorder Smoking Status: Never smoker Past Alcohol Use History: None Reported Past Drug Use History: None Reported - Past Family History Mother History Unknown: Yes Family Medical History: CVA/TIA Father History Unknown: Yes Family Medical History: Cancer Medications and Allergies Home Medications Medication Instructions Recorded Confirmed Type LORazepam [Ativan] 1 mg PO QID 04/06/20 02/13/22 History Metoprolol Succinate (ER) [Toprol 25 mg PO BID 10/28/20 02/13/22 History Xl] Allergies Allergy/AdvReac Type Severity Reaction Status Date / Time azithromycin Allergy Unknown Verified 02/13/22 08:15 Sulfa (Sulfonamide Allergy Unknown Verified 02/13/22 08:15 Antibiotics) amiodarone AdvReac DIZZY Verified 02/13/22 08:15 fentanyl AdvReac Confusion, Verified 02/13/22 08:15 Anxiety,"Penelope like her head was going to explode" losartan AdvReac DIZZY Verified 02/13/22 08:15 oxycodone AdvReac Confusion, Verified 02/13/22 08:15 Anxiety,"Penelope like her head was going to explode" Physical Exam Osteopathic Statement: *. No significant issues noted on an osteopathic structural exam other than those noted in the History and Physical/Consult. Vitals: Vital Signs Temp Pulse Resp BP Pulse Ox 02/13/22 13:00 89 18 139/93 96 02/13/22 10:00 106 H 18 119/90 98 02/13/22 08:11 109 H 16 139/82 98 02/13/22 07:19 98 F 70 20 142/82 99 Intake and Output 02/13/22 02/13/22 02/13/22 06:59 14:59 22:59 Other: Weight 46.266 kg Results CBC & Chem 7: 02/13/22 07:54 02/13/22 07:54 Labs: Abnormal Lab Results - Last 24 Hours (Table) 02/13/22 Range/Units 07:54 Sodium 135 L (137-145) mmol/L Carbon Dioxide 21 L (22-30) mmol/L Glucose 104 H (74-99) mg/dL ALT 40 H (4-34) U/L Alkaline Phosphatase 132 H (38-126) U/L
[2022-02-13 17:10] VITALS: BP 129/79; PULSE 98; RESP 16
[2022-02-13] MEDS ORDERED: AMOXIC-POT CLAV 875-125MG 1 EACH TAB PO SCH (21:00)
[2022-02-14] MEDS ORDERED: ENOXAPARIN 40 MG/0.4 ML SYRINGE SQ SCH (09:00)
--- NOTE | 2022-02-14 11:19 | P.DS ---
Providers Date of admission: 02/13/22 09:13 Expected date of discharge: 02/14/22 Attending physician: Judie Raymundo DO Consults: 02/13/22 09:10 Consult Physician Urgent Consulting Provider: [facility] Consult Reason/Comments: Bradycardia, syncope Do you want consulting provider notified?: Yes 02/13/22 10:34 Consult Physician Routine Consulting Provider: Gerardo Aguero Consult Reason/Comments: EP evaluation Do you want consulting provider notified?: Already Contacted 02/13/22 16:30 Consult Physician Routine Consulting Provider: Molina Trevino Consult Reason/Comments: Anxiety on standing ativan at home Do you want consulting provider notified?: Yes Primary care physician: Stated None Hospital Course: 66-year-old woman with a history of paroxysmal atrial tachycardia, second-degree AV block, multiple PVCs, torsade de pointes status post AICD who presented to the hospital for evaluation of syncope. In the emergency room, patient is afebrile, 142/82, heart rate 70, 99% on room air. CBC, chemistries are unremarkable. LFTs demonstrate mildly elevated alkaline phosphatase and mildly elevated ALT to 40, otherwise unremarkable. Initial troponin was negative. Chest x-ray demonstrates evidence of hyperinflation, COPD, but no acute processes. EKG demonstrates sinus rhythm with an electronically paced ventricle. Echocardiogram was already completed and demonstrates an ejection fraction between 60-65%, normal left ventricular wall thickness, no evidence of diastolic dysfunction, no wall motion abnormality. Cardiology has seen the patient already and recommends EP evaluation; they also evaluated the AICD, and did not note significant bradycardic events or arrhythmias. Syncope Palpitations History of torsade de pointes status post AICD History of multiple PVCs Paroxysmal atrial tachycardia History of second-degree AV block -Admitted to inpatient, telemetry. Plan was for gentle IV fluids, orthostatics, and EP consultation, however, patient left AMA without further work up. Generalized anxiety/panic disorder -Patient is on standing Ativan -Psych consult to adjust medications as appropriate, but patient left AMA. See same day H&P for physical exam Patient Condition at Discharge: Fair Plan - Discharge Summary New Discharge Prescriptions: No Action LORazepam [Ativan] 1 mg PO QID Metoprolol Succinate (ER) [Toprol Xl] 25 mg PO BID Discharge Medication List LORazepam [Ativan] 1 mg PO QID 04/06/20 [History] Metoprolol Succinate (ER) [Toprol Xl] 25 mg PO BID 10/28/20 [History] Follow up Appointment(s)/Referral(s): None,Stated [Primary Care Provider] - 1-2 days Discharge Disposition: Left Against Medical Advice
== END 2022-02-13 19:04 | disposition left against medical advice (07) | DRG 312 ==
LOC: EC 07:17 → 3SCARD 09:13
PROVIDERS: ADMIT Internal Medicine; ATTEND Internal Medicine
PROC: 4B02XTZ Measurement of Cardiac Defibrillator, External Approach (ICD-10-PCS; principal; 2022-02-13)
DX: R55 Syncope and collapse (principal); K04.7 Periapical abscess without sinus; I44.1 Atrioventricular block, second degree; I10 Essential (primary) hypertension; J44.9 Chronic obstructive pulmonary disease, unspecified; I25.10 Atherosclerotic heart disease of native coronary artery without angina pectoris; I48.91 Unspecified atrial fibrillation; F41.0 Panic disorder [episodic paroxysmal anxiety]; I49.3 Ventricular premature depolarization; I37.1 Nonrheumatic pulmonary valve insufficiency; I45.81 Long QT syndrome; I34.0 Nonrheumatic mitral (valve) insufficiency; F41.1 Generalized anxiety disorder; Z53.29 Procedure and treatment not carried out because of patient's decision for other reasons; Z82.3 Family history of stroke; Z95.810 Presence of automatic (implantable) cardiac defibrillator; Z88.8 Allergy status to other drugs, medicaments and biological substances; Z88.1 Allergy status to other antibiotic agents; Z88.2 Allergy status to sulfonamides; Z86.79 Personal history of other diseases of the circulatory system
CPT/HCPCS: 36415; 71046; 80053; 83735; 84484; 85025; 85610; 85730; 93005; 93306; 96374; 96375; 99285

== ENCOUNTER 2022-08-02 06:56 | Inpatient (IN) | payer MEDICARE, BC ==
--- NOTE | 2022-08-02 07:21 | ED ---
General Adult HPI - General Chief complaint: Chest Pain Stated complaint: Palpitations, speech Time Seen by Provider: 08/02/22 07:04 Source: patient, family, RN notes reviewed Mode of arrival: wheelchair Limitations: no limitations - History of Present Illness Initial comments: Patient is a pleasant 66-year-old female presenting to the emergency department multiple complaints. Patient complains of some left eye visual loss over the past week, this has been intermittent but persistent since this morning. Visual loss is the central portion of the left eye, almost 50%. Last known well was yesterday evening. Patient had an episode around 5:30 of garbled speech. Patient has had similar episodes a couple times since then. Patient does have palpitations. Patient does have some chest discomfort and left-sided headache. No extremity weakness. - Related Data Home Medications Medication Instructions Recorded Confirmed LORazepam [Ativan] 1 mg PO QID 04/06/20 02/13/22 Metoprolol Succinate (ER) [Toprol 25 mg PO BID 10/28/20 02/13/22 Xl] Allergies Allergy/AdvReac Type Severity Reaction Status Date / Time azithromycin Allergy Unknown Verified 08/02/22 06:57 Sulfa (Sulfonamide Allergy Unknown Verified 08/02/22 06:57 Antibiotics) amiodarone AdvReac DIZZY Verified 08/02/22 06:57 fentanyl AdvReac Confusion, Verified 08/02/22 06:57 Anxiety,"[place] like her head was going to explode" losartan AdvReac DIZZY Verified 08/02/22 06:57 oxycodone AdvReac Confusion, Verified 08/02/22 06:57 Anxiety,"[place] like her head was going to explode" Review of Systems ROS Statement: Those systems with pertinent positive or pertinent negative responses have been documented in the HPI. ROS Other: All systems not noted in ROS Statement are negative. Constitutional: Denies: fever Eyes: Reports: vision change. Denies: eye pain ENT: Denies: ear pain Respiratory: Denies: cough Cardiovascular: Reports: chest pain, palpitations Endocrine: Denies: fatigue Gastrointestinal: Denies: abdominal pain Genitourinary: Denies: dysuria Musculoskeletal: Denies: back pain Skin: Denies: rash Neurological: Reports: as per HPI, headache Past Medical History Past Medical History: Atrial Fibrillation, Coronary Artery Disease (CAD) History of Any Multi-Drug Resistant Organisms: None Reported Past Surgical History: AICD, Pacemaker Additional Past Surgical History / Comment(s): Multiple ovarian surgeries. Type of Cardiac Device: AICD Device Placement Date:: 03/05/2020 Past Psychological History: Anxiety, Panic Disorder Smoking Status: Never smoker Past Alcohol Use History: None Reported Past Drug Use History: None Reported - Past Family History Mother History Unknown: Yes Family Medical History: CVA/TIA Father History Unknown: Yes Family Medical History: Cancer General Exam Limitations: no limitations General appearance: alert Head exam: Present: normocephalic Eye exam: Present: normal appearance, PERRL, EOMI, other (Funduscopic exam within normal limits bilaterally) ENT exam: Present: normal oropharynx Neck exam: Present: normal inspection Respiratory exam: Present: normal lung sounds bilaterally Cardiovascular Exam: Present: tachycardia Expanded Peripheral pulses: 2+: Radial (R), Radial (L), Posterior Tibialis (R), Posterior Tibialis (L), Dorsalis Pedis (R), Dorsalis Pedis (L) GI/Abdominal exam: Present: soft. Absent: tenderness Extremities exam: Present: normal inspection. Absent: pedal edema, calf tenderness Neurological exam: Present: alert, oriented X3, CN II-XII intact. Absent: motor sensory deficit Expanded Neurological exam: Present: protecting the airway Speech: Present: fluid speech Cranial nerves: EOM's Intact: Normal, Facial Sensation: Normal Sensory exam: Upper Extremity Light Touch: Normal, Lower Extremity Light Touch: Normal Motor strength exam: RUE: 5, LUE: 5, RLE: 5, LLE: 5 Eye Response: (4) open spontaneously Motor Response: (6) obeys commands Verbal Response: (5) oriented Psychiatric exam: Present: anxious Skin exam: Present: normal color Course Vital Signs 08/02/22 06:57 Temperature 97.8 F Pulse Rate 119 H Respiratory 16 Rate Blood Pressure 147/81 O2 Sat by Pulse 98 Oximetry - Reevaluation(s) Reevaluation #1: 08/02/22 07:19 Last known well greater than 4.5 hours, therefore patient is not a TPA candidate. Risks are felt to outweigh the benefits. 08/02/22 08:13 Case was earlier discussed with Dr. Odell who agrees patient is not a TPA candidate. EKG Findings - EKG Comments: EKG Findings:: Paced rhythm rate 94. MI 138. QRS 134. QT 379. QTC 4:30. Right axis. Normal QRS. No acute ST change. Medical Decision Making - Medical Decision Making Patient reevaluated and resting comfortably in bed. Patient and family updated on results and plan. I do have concern for mild stroke or TIA concerning visual changes and garbled speech. Patient does have history of chronic anxiety and is anxious at this time. Case was discussed with Dr. Dr. Mullins, who will admit covering hospital call. He will agrees with neurology and cardiology consult. He would like to defer ophthalmology consult to neurology. - Lab Data Result diagrams: 08/02/22 07:30 08/02/22 07:30 Lab Results 08/02/22 08/02/22 08/02/22 Range/Units 07:30 07:30 07:30 WBC 4.2 (3.8-10.6) k/uL RBC 4.89 (3.80-5.40) m/uL Hgb 15.2 (11.4-16.0) gm/dL Hct 46.0 (34.0-46.0) % MCV 94.0 (80.0-100.0) fL MCH 31.0 (25.0-35.0) pg MCHC 33.0 (31.0-37.0) g/dL RDW 11.8 (11.5-15.5) % Plt Count 199 (150-450) k/uL MPV 7.9 Neutrophils % 38 % Lymphocytes % 48 % Monocytes % 8 % Eosinophils % 3 % Basophils % 1 % Neutrophils # 1.6 (1.3-7.7) k/uL Lymphocytes # 2.0 (1.0-4.8) k/uL Monocytes # 0.3 (0-1.0) k/uL Eosinophils # 0.1 (0-0.7) k/uL Basophils # 0.1 (0-0.2) k/uL PT 9.7 (9.0-12.0) sec INR 0.9 (<1.2) APTT 25.0 (22.0-30.0) sec Sodium 139 (137-145) mmol/L Potassium 3.3 L (3.5-5.1) mmol/L Chloride 104 (98-107) mmol/L Carbon Dioxide 18 L (22-30) mmol/L Anion Gap 17 mmol/L BUN 12 (7-17) mg/dL Creatinine 0.47 L (0.52-1.04) mg/dL Est GFR (CKD-EPI)AfAm >90 (>60 ml/min/1.73 sqM) Est GFR (CKD-EPI)NonAf >90 (>60 ml/min/1.73 sqM) Glucose 114 H (74-99) mg/dL Calcium 9.8 (8.4-10.2) mg/dL Total Bilirubin 0.5 (0.2-1.3) mg/dL AST 45 H (14-36) U/L ALT 46 H (4-34) U/L Alkaline Phosphatase 137 H (38-126) U/L Troponin I (0.000-0.034) ng/mL Total Protein 7.1 (6.3-8.2) g/dL Albumin 4.5 (3.5-5.0) g/dL 08/02/22 Range/Units 07:30 WBC (3.8-10.6) k/uL RBC (3.80-5.40) m/uL Hgb (11.4-16.0) gm/dL Hct (34.0-46.0) % MCV (80.0-100.0) fL MCH (25.0-35.0) pg MCHC (31.0-37.0) g/dL RDW (11.5-15.5) % Plt Count (150-450) k/uL MPV Neutrophils % % Lymphocytes % % Monocytes % % Eosinophils % % Basophils % % Neutrophils # (1.3-7.7) k/uL Lymphocytes # (1.0-4.8) k/uL Monocytes # (0-1.0) k/uL Eosinophils # (0-0.7) k/uL Basophils # (0-0.2) k/uL PT (9.0-12.0) sec INR (<1.2) APTT (22.0-30.0) sec Sodium (137-145) mmol/L Potassium (3.5-5.1) mmol/L Chloride (98-107) mmol/L Carbon Dioxide (22-30) mmol/L Anion Gap mmol/L BUN (7-17) mg/dL Creatinine (0.52-1.04) mg/dL Est GFR (CKD-EPI)AfAm (>60 ml/min/1.73 sqM) Est GFR (CKD-EPI)NonAf (>60 ml/min/1.73 sqM) Glucose (74-99) mg/dL Calcium (8.4-10.2) mg/dL Total Bilirubin (0.2-1.3) mg/dL AST (14-36) U/L ALT (4-34) U/L Alkaline Phosphatase (38-126) U/L Troponin I 0.025 (0.000-0.034) ng/mL Total Protein (6.3-8.2) g/dL Albumin (3.5-5.0) g/dL - Radiology Data Radiology results: report reviewed (Computed tomography scan of the brain does not reveal acute process), image reviewed (Chest x-ray shows no acute process) Disposition Clinical Impression: Chest pain, CVA (cerebral vascular accident) Disposition: ADMITTED IP TO THIS [facility] Is patient prescribed a controlled substance at d/c from ED?: No Referrals: None,Stated [Primary Care Provider] - 1-2 days Time of Disposition: 09:44
[2022-08-02] MEDS ORDERED: FAMOTIDINE 20 MG/2 ML VIAL IV STA (07:28)
[2022-08-02] MEDS ORDERED: diphenhydrAMINE 50 MG/ML 1 ML VIAL IVP STA (07:28)
[2022-08-02] MEDS ORDERED: methylPREDNISolone SOD SUCCI 125 MG/2 ML VIAL IV STA (07:28)
[2022-08-02 07:41] LABS: Basophils # (A) 0.1 k/uL (0-0.2); Basophils % (A) 1 %; Eosinophils # (A) 0.1 k/uL (0-0.7); Eosinophils % (A) 3 %; HGB 15.2 gm/dL (11.4-16.0); Lymphocytes % (A) 48 %; Mean Platelet Volume 7.9; Monocytes # (A) 0.3 k/uL (0-1.0); Monocytes % (A) 8 %; Neutrophils # (A) 1.6 k/uL (1.3-7.7); Neutrophils % (A) 38 %; Platelet Count 199 k/uL (150-450); RBC 4.89 m/uL (3.80-5.40); RDW 11.8 % (11.5-15.5); WBC 4.2 k/uL (3.8-10.6)
--- NOTE | 2022-08-02 07:48 | CT ---
EXAMINATION TYPE: CT brain wo con DATE OF EXAM: 08/02/2022 COMPARISON: None INDICATION: Neuro deficit, acute, stroke suspected DLP: 1135.6 mGycm, Automated exposure control for dose reduction was used. CONTRAST: None CT of the brain is performed utilizing 3 mm thick sections through the posterior fossa and 3 mm thick sections through the remaining calvarium. Study is performed within 24 hours of arrival to the hosp [facility]. No abnormal hyperdensity is present to suggest an acute intracranial hemorrhage. No mass lesion is evident. No acute infarcts are evident. Ventricles and sulci are appropriate for the patient age. Paranasal sinuses and mastoid air cells within the [id number] are clear. IMPRESSIONS: 1. No acute intracranial process radiographically apparent. Follow-up MRI can be performed as clini jonatan indicated.
[2022-08-02 08:02] LABS: ALT 46 U/L (4-34); AST 45 U/L (14-36); African American GFR (CKD) >90 (>60 ml/min/1.73 sqM); Albumin 4.5 g/dL (3.5-5.0); Alkaline Phosphatase 137 U/L (38-126); Anion Gap 17 mmol/L; Blood Urea Nitrogen 12 mg/dL (7-17); Calcium 9.8 mg/dL (8.4-10.2); Carbon Dioxide 18 mmol/L (22-30); Chloride 104 mmol/L (98-107); Glucose 114 mg/dL (74-99); Non-African American GFR(CKD) >90 (>60 ml/min/1.73 sqM); Potassium 3.3 mmol/L (3.5-5.1); Sodium 139 mmol/L (137-145); Total Bilirubin 0.5 mg/dL (0.2-1.3); Total Protein 7.1 g/dL (6.3-8.2)
[2022-08-02 08:16] LABS: INR 0.9 (<1.2); Prothrombin Time 9.7 sec (9.0-12.0)
[2022-08-02] MEDS ORDERED: LORazepam 2 MG/ML INJ IV STA (08:38)
[2022-08-02] MEDS ORDERED: ONDANSETRON 4 MG/2 ML VIAL IVP STA (08:39)
[2022-08-02] MEDS ORDERED: MORPHINE SULFATE 2 MG/ML SYRINGE IVP STA (08:39)
--- NOTE | 2022-08-02 09:12 | XR ---
EXAMINATION TYPE: XR chest 2V DATE OF EXAM: 08/02/2022 COMPARISON: 02/13/2022 INDICATION: Altered mental status chest pain short of breath TECHNIQUE: Frontal and lateral views of the chest are obtained. FINDINGS: The heart size is normal. The pulmonary vasculature is normal. The lungs are clear. Pacemaker overlies left chest There is hyperinflation flattening of the diaphragms and increased AP diameter compatible with COPD. IMPRESSION: 1. No acute pulmonary process. 2. COPD
[2022-08-02] MEDS ORDERED: ASPIRIN 325 MG TAB PO STA (09:44)
[2022-08-02] MEDS: SODIUM CHLORIDE 0.9% 1,000 ML IV SCH ×2 (10:16→21:26)
[2022-08-02] MEDS ORDERED: ATORVASTATIN 80 MG TAB PO STA (11:27)
--- NOTE | 2022-08-02 12:02 | P.CRDCN ---
History of Present Illness Consult date: 08/02/22 History of present illness: Patient has a known history of nonischemic cardiomyopathy, biventricular ICD placed in March 2020, torsades de pointe, second-degree AV block, proximal atrial tachycardia, hypertension who presented to the ER with complaints of left visual loss over the past week, garbled speech, and chest discomfort, accompanied by a left-sided headache. We have been consulted to see the patient for chest pain. She follows with Dr. Aguero in the office. Patient's troponin was negative, will obtain serial troponins. Patient has complaints of her heart rate fluctuating at home from 40 to above 100. Her EKG showed ventricular paced rhythm. 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 Her chest x-ray was negative for acute cardiopulmonary process, it did show COPD. patient had an echocardiogram earlier this year in February which showed a normal LV function with mild mitral regurgitation. patient had a cardiac catheterization in 2017 which showed normal coronary arteries Will obtain a 2-D echocardiogram. Neurology is on the case to evaluate for possible CVA/TIA. Review of Systems REVIEW OF SYSTEMS At the time of my exam: CONSTITUTIONAL: Denies fever or chills. EYES: Intermittent vision changes of the left eye ENT: Negative for hearing loss CARDIOVASCULAR: Reports chest discomfort, Denies shortness of breath, diaphoresis, orthopnea, PND or palpitations. VASCULAR: Denies edema RESPIRATORY: Denies cough. GASTROINTESTINAL: Denies abdominal pain, diarrhea, constipation, nausea or vomiting. MUSCULOSKELETAL: Denies myalgias. NEUROLOGIC: Denies numbness, tingling, headache or weakness. ENDOCRINE: Denies fatigue, weight change, polydipsia or polyurina. GENITOURINARY: Denies burning, hematuria or urgency with micturation. HEMATOLOGIC: Denies history of anemia or bleeding. DERMATOLOGY: Denies rash or skin sores PSYCH: Negative for depression or hallucinations. Past Medical History Past Medical History: Atrial Fibrillation, Coronary Artery Disease (CAD) History of Any Multi-Drug Resistant Organisms: None Reported Past Surgical History: AICD, Pacemaker Additional Past Surgical History / Comment(s): Multiple ovarian surgeries. Type of Cardiac Device: AICD Device Placement Date:: 03/05/2020 Past Psychological History: Anxiety, Panic Disorder Smoking Status: Never smoker Past Alcohol Use History: None Reported Past Drug Use History: None Reported - Past Family History Mother History Unknown: Yes Family Medical History: CVA/TIA Father History Unknown: Yes Family Medical History: Cancer Medications and Allergies Home Medications Medication Instructions Recorded Confirmed Type LORazepam [Ativan] 1 mg PO QID 04/06/20 08/02/22 History Metoprolol Succinate (ER) [Toprol 25 mg PO BID 10/28/20 08/02/22 History Xl] Acetaminophen Tab [Tylenol Tab] 1,000 mg PO Q6H PRN 08/02/22 08/02/22 History Allergies Allergy/AdvReac Type Severity Reaction Status Date / Time azithromycin Allergy Unknown Verified 08/02/22 10:04 erythromycin base Allergy Unknown Verified 08/02/22 10:04 [From Erythrocin] Sulfa (Sulfonamide Allergy Unknown Verified 08/02/22 10:04 Antibiotics) amiodarone AdvReac DIZZY Verified 08/02/22 10:04 fentanyl AdvReac Confusion, Verified 08/02/22 10:04 Anxiety,"[place] like her head was going to explode" losartan AdvReac DIZZY Verified 08/02/22 10:04 ondansetron [From Zofran] AdvReac Chest Pain Verified 08/02/22 10:05 oxycodone AdvReac Confusion, Verified 08/02/22 10:04 Anxiety,"[place] like her head was going to explode" Physical Exam Vitals: Vital Signs Temp Pulse Resp BP Pulse Ox 08/02/22 10:00 79 18 130/93 98 08/02/22 06:57 97.8 F 119 H 16 147/81 98 Intake and Output 08/01/22 08/02/22 08/02/22 22:59 06:59 14:59 Other: Weight 46.266 kg General: The patient is awake and alert, in no distress, and does not appear acutely ill. Skin: Skin is warm and dry and no rashes or lesions are noted. Eye: Pupils are equal, round and reactive to light, extra-ocular movements are intact; there is normal conjunctiva bilaterally. Ears, nose, mouth and throat: There are moist mucous membranes and no oral lesions. Neck: The neck is supple, there is no tenderness or JVD. Cardiovascular: There is irregular regular rate and rhythm. No murmur, rub or gallop is appreciated. Respiratory: Lungs are clear to auscultation, respirations are non-labored, breath sounds are equal. Gastrointestinal: Soft, non-distended, non-tender abdomen without masses or organomegaly noted. There is no rebound or guarding present. Bowel sounds are unremarkable. Back: There is no tenderness to palpation in the midline. There is no obvious deformity. Musculoskeletal: Normal ROM, no tenderness, There is no pedal edema. There is no calf tenderness or swelling. Extremities: Negative for bilateral edema Vascular: Femoral pulse is normal. Posterior tibial pulses are normal .Dorsalis pedis is palpable. Neurological: CN II-XII intact. There are no obvious motor or sensory deficits. Speech is normal. Psychiatric: Cooperative, appropriate mood & affect, normal judgment Results 08/02/22 07:30 08/02/22 07:30 Cardiac Enzymes 08/02/22 08/02/22 08/02/22 Range/Units 07:30 07:30 10:17 AST 45 H (14-36) U/L Troponin I 0.025 0.012 (0.000-0.034) ng/mL Coagulation 08/02/22 Range/Units 07:30 PT 9.7 (9.0-12.0) sec APTT 25.0 (22.0-30.0) sec CBC 08/02/22 Range/Units 07:30 WBC 4.2 (3.8-10.6) k/uL RBC 4.89 (3.80-5.40) m/uL Hgb 15.2 (11.4-16.0) gm/dL Hct 46.0 (34.0-46.0) % Plt Count 199 (150-450) k/uL Comprehensive Metabolic Panel 08/02/22 Range/Units 07:30 Sodium 139 (137-145) mmol/L Potassium 3.3 L (3.5-5.1) mmol/L Chloride 104 (98-107) mmol/L Carbon Dioxide 18 L (22-30) mmol/L BUN 12 (7-17) mg/dL Creatinine 0.47 L (0.52-1.04) mg/dL Glucose 114 H (74-99) mg/dL Calcium 9.8 (8.4-10.2) mg/dL AST 45 H (14-36) U/L ALT 46 H (4-34) U/L Alkaline Phosphatase 137 H (38-126) U/L Total Protein 7.1 (6.3-8.2) g/dL Albumin 4.5 (3.5-5.0) g/dL Current Medications Generic Name Dose Route Start Last Admin Trade Name Jose L PRN Reason Stop Dose Admin Aspirin 325 mg 08/03/22 09:00 Aspirin 325 Mg Tab PO DAILY NEELIMA Atorvastatin Calcium 80 mg 08/03/22 21:00 Atorvastatin 80 Mg Tab PO HS NEELIMA Clopidogrel Bisulfate 75 mg 08/02/22 11:30 Clopidogrel 75 Mg Tab PO DAILY NEELIMA Heparin Sodium (Porcine) 5,000 unit 08/02/22 11:30 Heparin Sodium,Porcine/Pf 5,000 Unit/0.5 Ml Syringe SQ Q8HR NEELIMA Sodium Chloride 1,000 mls @ 100 mls/hr 08/02/22 09:45 08/02/22 10:16 Saline 0.9% IV 100 mls/hr .Q10H NEELIMA Administration Intake and Output 08/01/22 08/02/22 08/02/22 22:59 06:59 14:59 Other: Weight 46.266 kg 08/02/22 07:30 08/02/22 07:30 Assessment and Plan Assessment: Chest pain, without ischemia, troponin negative, EKG shows no evidence of ischemic changes Acute left eye vision loss Second-degree AV block status post biventricular ICD Plan: Continue with all current cardiac medications Will obtain an echocardiogram, based on echocardiogram Will continue to follow serial troponins Continue telemetry monitoring Further recommendations based on clinical course The above impression and plan of care have been discussed and directed by the signing physician. Talia Hardin, nurse practitioner, acting as scribe for signing physician.
[2022-08-02] MEDS: CLOPIDOGREL 75 MG TAB PO SCH (12:05)
[2022-08-02] MEDS: HEPARIN SODIUM,PORCINE/PF 5,000 UNIT/0.5 ML SYRINGE SQ SCH ×2 (12:06→16:46)
--- NOTE | 2022-08-02 12:20 | US ---
EXAMINATION TYPE: US carotid duplex BILAT DATE OF EXAM: 08/02/2022 COMPARISON: NONE CLINICAL HISTORY: Stenosis. Chest pain. Shortness of breath TECHNIQUE: Carotid duplex ultrasound examination. Indirect Doppler criteria was utilized. FINDINGS: EXAM MEASUREMENTS: RIGHT: Peak Systolic Velocity (PSV) cm/sec ----- Right CCA: 63.9 ----- Right ICA: 111.7 ----- Right ECA: 74.6 ICA/CCA ratio: 1.7 RIGHT: End Diastole cm/sec ----- Right CCA: 20.2 ----- Right ICA: 48.9 ----- Right ECA: 11.4 LEFT: Peak Systolic Velocity (PSV) cm/sec ----- Left CCA: 69.4 ----- Left ICA: 89.5 ----- Left ECA: 65.2 ICA/CCA ratio: 1.3 LEFT: End Diastole cm/sec ----- Left CCA: 25.8 ----- Left ICA: 41.5 ----- Left ECA: 13.4 VERTEBRALS (direction of flow): Right Vertebral: Antegrade Left Vertebral: Antegrade Rhythm: Normal [employer] NOTES: No stenosis visualized. Incidental thyroid enlargement bilaterally with the large st nodule on the right lobe measuring 3.4 x 3.2 x 2.8cm. IMPRESSION: 1. Intimal thickening without significant flow-limiting stenosis. 2. Incidental note is made of an enlarged right lobe thyroid nodule. Thyroid ultrasound is recommende d for additional workup Criteria for Assigning % of Stenosis / Diameter reduction (Estimation based on the indirect measurements of the internal carotid artery velocities (ICA PSV). 1. Normal (no stenosis)=ICA PSV < 125 cm/s: ratio < 2.0: ICA EDV<40 cm/s. 2. Less than 50% stenosis=ICA PSV < 125 cm/s: ratio < 2.0: ICA EDV<40 cm/s. 3. 50 to 69% stenosis=ICA PSV of 125 to 230 cm/s: ration 2.0 ? 4.0: ICA EDV 40-100 cm/s. 4. Greater than 70% stenosis to near occlusion= ICA PSV > 230 cm/s: ratio > 4.0: ICA EDV > 100 cm/s. 5. Near occlusion= ICA PSV velocities may be low or undetectable: variable ratio and ICA EDV. 6. Total occlusion=unable to detect flow.
--- NOTE | 2022-08-02 12:37 | P.CNNES ---
History of Present Illness Consult date: 08/02/22 Requesting physician: Alistair Everett Reason for Consult: concern for CVA History of Present Illness: This is a 66 year-old woman with history of atrial fibrillation, nonischemic cardiomyopathy status post AICD, second-degree AV block who presented to the emergency department because of multiple complaints and one of complaints is left eye visual loss over the past 2 weeks and palpitation. Patient is accompanied by her was at bedside. She stated that she is having constant left central vision loss for the past 2 weeks over the left eye. She denies any worsening of her vision. She notified the ED team that this has been going on for the past 1 week and was intermittent but has worsened today but she denies that to me and she stated that this has been going on for 2 weeks and has been constant and not intermittent. She is also noticing that the today around 5:30 in the morning she is having difficulty getting her words out while talking to her and rather than saying on the desk according to the she was sitting every other words besides that. She has been having headache since yesterday and it's a band-like the headache but denies any worsening of the photophobia and she has underlying photophobia for a while. Denies any headache prior to yesterday. Denied any difficulty chewing her foods. Denies any photophobia, vomiting. Denies any focal weakness. She has noticed in the past 1 week that she had some numbness over the left side of the cheek that was brief and resolved. She has been having palpitation for the past 2 weeks. Denies any history of stroke. She has follow-up with cardiology team (Dr. Aguero). She is not on any antiplatelet or statin patient is not on any anticoagulation for atrial fibrillation but is on the metoprolol. Some of the workup during this hospital visit consisted of: Blood pressure is 147/81, heart rate of 119, respiratory of 16, temperature of 97.8 Fahrenheit oral and pulse ox of 98% room air. CBC with differential is unremarkable Chemistry panels AST of 45 ALT [address] the head is reported as no acute intracranial process radiographically apparent. Follow-up MRI can be performed as cortical indicated. I personally reviewed the CT of the head and I agree with report. EKG is reported as electronic ventricular pacemaker. Abnormal rhythm EKG. No IV TPA since last Lyndon is more than 4.5 hours. The risk outweigh the benefit for IV tpa. ED discussed this with the stroke attending (Dr. Bloom). Review of Systems Review of system: The 12 point system was reviewed and apparent positive and negative per HPI. Past Medical History Past Medical History: Atrial Fibrillation, Coronary Artery Disease (CAD) History of Any Multi-Drug Resistant Organisms: None Reported Past Surgical History: AICD, Pacemaker Additional Past Surgical History / Comment(s): Multiple ovarian surgeries. Type of Cardiac Device: AICD Device Placement Date:: 03/05/2020 Past Psychological History: Anxiety, Panic Disorder Smoking Status: Never smoker Past Alcohol Use History: None Reported Past Drug Use History: None Reported - Past Family History Mother History Unknown: Yes Family Medical History: CVA/TIA Father History Unknown: Yes Family Medical History: Cancer Medications and Allergies Home Medications Medication Instructions Recorded Confirmed Type LORazepam [Ativan] 1 mg PO QID 04/06/20 08/02/22 History Metoprolol Succinate (ER) [Toprol 25 mg PO BID 10/28/20 08/02/22 History Xl] Acetaminophen Tab [Tylenol Tab] 1,000 mg PO Q6H PRN 08/02/22 08/02/22 History Allergies Allergy/AdvReac Type Severity Reaction Status Date / Time azithromycin Allergy Unknown Verified 08/02/22 10:04 erythromycin base Allergy Unknown Verified 08/02/22 10:04 [From Erythrocin] Sulfa (Sulfonamide Allergy Unknown Verified 08/02/22 10:04 Antibiotics) amiodarone AdvReac DIZZY Verified 08/02/22 10:04 fentanyl AdvReac Confusion, Verified 08/02/22 10:04 Anxiety,"[place] like her head was going to explode" losartan AdvReac DIZZY Verified 08/02/22 10:04 ondansetron [From Zofran] AdvReac Chest Pain Verified 08/02/22 10:05 oxycodone AdvReac Confusion, Verified 08/02/22 10:04 Anxiety,"[place] like her head was going to explode" Physical Examination - Vital Signs Vital Signs: Vital Signs Temp Pulse Resp BP Pulse Ox 08/02/22 10:00 79 18 130/93 98 08/02/22 06:57 97.8 F 119 H 16 147/81 98 Intake and Output 08/01/22 08/02/22 08/02/22 22:59 06:59 14:59 Other: Weight 46.266 kg GENERAL: The patient is lying in bed and is not in acute distress. She seems very anxious. CHEST: The heart rate is regular rate rhythm. No murmurs to auscultation. LUNG: Clear to auscultation bilaterally no wheezing noted throughout. Not labored breathing. ABDOMEN/GI: Bowel sounds present in all 4 quadrants. No tenderness to palpation throughout. NEUROLOGICAL: Higher mental function: The patient is awake, alert, oriented to self, place and time. Patient is following commands. No aphasia and no neglect. Cranial nerves: The pupils are round, equal and reactive to light and accommodation. Visual agosto is full over the right eye and appears full on the left but then stated she could not see out left uppers left eye when looking at my face. Extraocular movement is intact no nystagmus is noted. Facial sensation is normal to touch throughout. The facial strength is normal throughout. Hearing is normal bilaterally to hand rub. Tongue is midline and moved [id number] without any difficulty. No dysarthria is noted. Shoulder shrug is normal bilaterally. Motor: The strength is 5 over 5 throughout. Normal tone and bulk. Cerebellum: Normal finger to nose bilaterally. Sensation: Sensation is normal to touch throughout. Reflexes (right/left): 2+ throughout. Plantars are mute bilaterally. Results - Laboratory Findings CBC and BMP: 08/02/22 07:30 08/02/22 07:30 Abnormal Lab Findings: Abnormal Labs 08/02/22 07:30 Potassium 3.3 L Carbon Dioxide 18 L Creatinine 0.47 L Glucose 114 H AST 45 H ALT 46 H Alkaline Phosphatase 137 H Assessment and Plan Assessment: Acute left central visual loss for past two week with episode of garbled speech (today) and has episode of left facial numbness that was transient possibly a week ago and headache since yesterday: Appears due to acute to subacute ischemic stroke (especially with her cardiac risk factors). Chest Palpitation Atrial fibrillation not on anticoagulation Nonischemic cardiomyopathy status post AICD History of Second-degree AV block Appears the patient has underlying anxiety Plan: I ordered CT angiography of the head and neck urgently but patient refused since allergic to iodine. I notified her that we can proper but she continues to refuse it. Cannot obtain MRI because AICD but will try to get a repeat CT within 48 hour presentation to see if there is any changes. The patient was given aspirin 325mg once then was started on aspirin 325 daily. I also started the patient on Plavix 75 mg daily. The patient does not want to be on dual antiplatelets and is also hesitant being on antiplatelet as a single agent as well. She was notified to be on dual antiplatelets for now and will have a further discussion again tomorrow. Started the patient on Lipitor 80 mg daily for secondary stroke prophylaxis 2-D echo, carotid duplex, lipid panel is ordered by the ED is pending. I also ordered hemoglobin A1c Ordered ESR and CRP Continue neuro checks On cardiac monitoring PT OT and RAW STOCK DRIER TENDER are consulted Consulted ophthalmology team (Dr. Alisia Sauceda) for vision loss. Recommend permissive hypertensive and to control blood pressure if it's more than the 220 systolic or diastolic >110 We'll defer the rest of the medical management to primary team For DVT prophylaxis, I started the patient on subcu heparin 5000 units every 8 hours. The plan is discussed with the patient, her and her nurse Thank you for the consultation. Lyndon Evans M.D. Neuro-Hospitalist Time with Patient: Greater than 30
[2022-08-02] MEDS: METOPROLOL SUCCINATE (ER) 25 MG TAB.ER.24H PO SCH ×2 (14:20→20:03)
[2022-08-02] MEDS: LORazepam 1 MG TAB PO SCH ×3 (14:21→21:19)
[2022-08-02 14:36] LABS: Appearance,Urine Clear (Clear); Bilirubin,Urine Negative (Negative); Blood,Urine Negative (Negative); Color,Urine Colorless; Glucose,Urine (UA) Negative (Negative); Ketones,Urine Negative (Negative); Leukocyte Esterase,Urine Negative (Negative); Nitrite,Urine Negative (Negative); PH, Urine 5.5 (5.0-8.0); Protein,Urine Negative (Negative); Specific Gravity,Urine 1.004 (1.001-1.035); Urobilinogen,Urine <2.0 mg/dL (<2.0)
[2022-08-02 14:36] LABS: T4, Free (Free Thyroxine) 2.31 ng/dL (0.78-2.19)
[2022-08-02 14:48] LABS: Amphetamine Screen,Urine Not Detected (NotDetected); Barbiturate Screen,Urine Not Detected (NotDetected); Benzodiazepines Screen,Urine Detected (NotDetected); Cocaine Screen,Urine Not Detected (NotDetected); Methadone Screen, Urine Not Detected (NotDetected); Opiate Screen,Urine Not Detected (NotDetected); Oxycodone Screen, Urine Not Detected (NotDetected); Phencyclidine Screen,Urine Not Detected (NotDetected); Tricyclic Antidepressant,Urine Not Detected (NotDetected); Urn Cannabinoid Scrn Not Detected (NotDetected)
[2022-08-02] MEDS: THIAMINE 100 MG TAB PO SCH (16:46)
[2022-08-02] MEDS: ACETAMINOPHEN TAB 500 MG TAB PO PRN (20:02)
[2022-08-03] MEDS: HEPARIN SODIUM,PORCINE/PF 5,000 UNIT/0.5 ML SYRINGE SQ SCH ×2 (00:09→07:31)
--- NOTE | 2022-08-03 01:10 | HP ---
HISTORY AND PHYSICAL CHIEF COMPLAINT: Visual difficulties as well as chest pain and some change in mental status. HISTORY OF PRESENT ILLNESS: This 66-year-old woman with a past medical history of nonischemic cardiomyopathy, history of and apparently paroxysmal atrial tachycardia, was having difficulties with communication and also some left visual difficulties. The patient also had recurrent palpitations associated with some anxiety and panic attacks. The patient came to [facility] and was admitted for further evaluation. The patient also complains of chest pain. Cardiology and Neurology evaluation in progress. There is no history of any fever, rigors, or chills. The patient had an AICD placed, and the most recent 2D echo showed ejection fraction improved to 60% to 65%. PAST MEDICAL HISTORY: Reviewed and include history of atrial tachycardia, paroxysmal; history of AICD. HOME MEDICATIONS: Again reviewed and include Lopressor 25 mg p.o. b.i.d. Dose and rest of medications are reviewed. ALLERGIES: Zithromax reviewed. FAMILY HISTORY: History of CVA, TIA. SOCIAL HISTORY: No history of smoking. REVIEW OF SYSTEMS: A 14-point review of systems is negative as mentioned earlier. PHYSICAL EXAMINATION: VITAL SIGNS: Pulse is 79, blood pressure n_, respirations 18. HEENT: Conjunctivae normal. NECK: No JVD. CARDIOVASCULAR: S1, S2 n. ABDOMEN: Soft, nontender. LEGS: No edema. No swelling. NERVOUS SYSTEM: Mild diffuse weakness. Eye movements are full in all directions. SKIN: No ulcer, rash, bleeding. JOINTS: No active deforming arthropathy. LABORATORY DATA: Personally reviewed. Potassium n reviewed. ASSESSMENT: 1. Visual difficulties and change in mental status, possible acute transient ischemic attack versus stroke. 2. Possible paroxysmal atrial fibrillation. 3. History of paroxysmal atrial tachycardia and n status post AICD. 4. History of nonischemic cardiomyopathy. 5. Multiple medical issues. 6. Multiple premature ventricular contractions and panic attacks. RECOMMENDATIONS: In this 66-year-old woman, who presented with multiple complex medical issues at this time, we will continue to monitor. The patient had symptoms of TIA versus stroke. The patient might need anticoagulation on an ongoing basis. There is recurrent atrial fibrillation, which the patient is reporting. At this time, the patient also had occasional PVCs, associated with some panic attacks, but however, we will monitor the patient closely in telemetry and closely follow with Cardiology and Neurology. MRI cannot be done because of the AICD. Neurology plan is CT scan with contrast. Prognosis guarded. Further recommendations to follow. We will repeat the labs tomorrow. See orders for details. Discussed with the patient and at the bedside at length. MMODL / IJN: [id number] / MTDD
[2022-08-03] MEDS: ACETAMINOPHEN TAB 500 MG TAB PO PRN ×2 (05:11→11:43)
--- NOTE | 2022-08-03 06:11 | CONS ---
CONSULTATION CHIEF COMPLAINT: Decreased vision, left eye associated with loss of part of the superior vision. HISTORY OF PRESENT ILLNESS: The patient noticed this problem 3 weeks ago, but thought it will improve and was not consulted by any eye doctor. The patient has irregular heart beat, and she is admitted for control of heart rate in the hospital. Other medical system was reviewed. Eye examination; vision, right eye is 20/40, left eye is 20/200. Extraocular motility full. Confrontation shows limited superior fears and vague scotoma superiorly. Pupils were equal and reactive. Lens, 1+ nuclear sclerosis. Eye pressure was around 18 mmHg, both eyes. Disc in the left eye was 0.3 with swelling of the macular area. Rest of the retina was good. No detachment. ASSESSMENT: Left macular swelling (retinal swelling in the center of the vision). PLAN: This could be a swelling from a branch artery macular occlusion from an embolus or it could be in the retinal area, difficult to evaluate on bedside exam. The patient needs to be seen in the office tomorrow or on Saturday to evaluate the macula with OCT and to have a full retinal examination. It is urgent, but this complaint has been for 3 weeks, so it is to be seen soon, but not like tomorrow, if her medical condition does not permit her to go tomorrow, so Saturday would be the latest to be seen in the office. MMODL / IJN: [id number] /
[2022-08-03] MEDS: THIAMINE 100 MG TAB PO SCH (06:30)
[2022-08-03] MEDS: CLOPIDOGREL 75 MG TAB PO SCH (07:31)
[2022-08-03] MEDS: METOPROLOL SUCCINATE (ER) 25 MG TAB.ER.24H PO SCH (07:49)
[2022-08-03] MEDS: LORazepam 1 MG TAB PO SCH ×2 (07:49→12:45)
[2022-08-03] MEDS: SODIUM CHLORIDE 0.9% 1,000 ML IV SCH (07:55)
[2022-08-03] MEDS ORDERED: ASPIRIN 325 MG TAB PO SCH (09:00)
[2022-08-03 09:31] LABS: Basophils % (A) 1 %; Eosinophils # (A) 0.1 k/uL (0-0.7); Eosinophils % (A) 3 %; HCT 43.6 % (34.0-46.0); HGB 14.2 gm/dL (11.4-16.0); Lymphocytes # (A) 1.6 k/uL (1.0-4.8); Lymphocytes % (A) 39 %; MCH 31.3 pg (25.0-35.0); MCHC 32.5 g/dL (31.0-37.0); MCV 96.1 fL (80.0-100.0); Mean Platelet Volume 7.9; Monocytes # (A) 0.3 k/uL (0-1.0); Monocytes % (A) 8 %; Neutrophils # (A) 1.9 k/uL (1.3-7.7); Neutrophils % (A) 47 %; Platelet Count 178 k/uL (150-450); RBC 4.54 m/uL (3.80-5.40); RDW 11.8 % (11.5-15.5); WBC 4.2 k/uL (3.8-10.6)
[2022-08-03 09:46] LABS: ALT 34 U/L (4-34); AST 28 U/L (14-36); African American GFR (CKD) >90 (>60 ml/min/1.73 sqM); Albumin 3.9 g/dL (3.5-5.0); Alkaline Phosphatase 115 U/L (38-126); Anion Gap 10 mmol/L; Blood Urea Nitrogen 9 mg/dL (7-17); Calcium 9.2 mg/dL (8.4-10.2); Carbon Dioxide 27 mmol/L (22-30); Chloride 101 mmol/L (98-107); Glucose 100 mg/dL (74-99); Non-African American GFR(CKD) >90 (>60 ml/min/1.73 sqM); Potassium 3.6 mmol/L (3.5-5.1); Sodium 138 mmol/L (137-145); Total Bilirubin 0.6 mg/dL (0.2-1.3); Total Protein 6.4 g/dL (6.3-8.2)
[2022-08-03 11:51] VITALS: BP 146/65; PULSE 90; RESP 16; TEMP 97.3
[2022-08-03] MEDS ORDERED: FOLIC ACID 1 MG TAB PO SCH (12:00)
[2022-08-03] MEDS ORDERED: MULTIVITAMINS, THERA 1 EACH TAB PO SCH (12:00)
--- NOTE | 2022-08-03 12:12 | P.PN ---
Subjective This is a pleasant 66-year-old female past medical history significant for biventricular ICD placement in 03/2020, [place], prolonged QT i nterval, second-degree AV block, paroxysmal atrial tachycardia, PVCs, hypertension, mild non-obstructive coronary artery disease (from cath in 03/2020). She follows in the office with Dr. Aguero. We have been asked to see in consultation for chest pain. Patient presented to the ER with complaints of left eye vision loss, garbled speech, left sided headache and some chest discomfort. Code Stroke called in the ER on admission. Patients and examined at bedside, no acute distress. She appears anxious. She is concerned that her heart rate is going into the 40s. Continues to check her pulse and her carotid pulse. She is standing up leaning forward stating this is when she feels palpitations and her heart rate lowering. Telemetry reviewed with HR in 70s-90s and paced. No acute events. No bradycardia. Her vital signs are stable. Troponins are negative 3. TSH low, free T4 high. Echocardiogram obtained. GENERAL: Well-appearing, well-nourished and in no acute distress. NECK: Supple without JVD or thyromegaly. LUNGS: Breath sounds clear to auscultation bilaterally. Respiration equal and unlabored. No wheezes, rales or rhonchi. HEART: Regular rate and rhythm without murmurs, rubs or gallops. S1 and S2 heard. EXTREMITIES: Normal range of motion, no edema. No clubbing or cyanosis. Per ipheral pulses intact. ASSESSMENT Chest pain, non-cardiac, acute coronary syndrome has been ruled out Reports of palpitations Biventricular ICD placement in 03/2020, History of [place] Prolonged QT interval History of second-degree AV block History of Paroxysmal atrial tachycardia Hypertension Mild non-obstructive coronary artery disease (from cath in 03/2020) PLAN Telemetry reviewed with HR in 70s-90s and paced. No acute events. No bradycardia. Echo pending Device interrogated today with no acute events noted, device functioning normally. Continue home cardiac medications. No further inpatient workup from a cardiology perspective. Nurse Practitioner note has been reviewed, I agree with a documented findings and plan of care. Patient was seen and examined. Objective - Vital Signs Vital signs: Vital Signs Temp 97.8 F 08/02/22 06:57 Pulse 79 08/02/22 10:00 Resp 18 08/02/22 10:00 BP 130/93 08/02/22 10:00 Pulse Ox 98 08/02/22 10:00 FiO2 Intake & Output 08/01/22 08/02/22 08/02/22 18:59 06:59 18:59 Weight 46.266 kg - Labs CBC & Chem 7: 08/03/22 08:51 08/03/22 08:51 Labs: Abnormal Lab Results - Last 24 Hours (Table) 08/02/22 Range/Units 07:30 Potassium 3.3 L (3.5-5.1) mmol/L Carbon Dioxide 18 L (22-30) mmol/L Creatinine 0.47 L (0.52-1.04) mg/dL Glucose 114 H (74-99) mg/dL AST 45 H (14-36) U/L ALT 46 H (4-34) U/L Alkaline Phosphatase 137 H (38-126) U/L
--- NOTE | 2022-08-03 12:32 | P.PN ---
Subjective Progress Note Date: 08/03/22 According the patient nurse the patient is very anxious and was complaining about headache yesterday but upon seeing the patient today she stated that she's doing drastically better and regarding her headache but she continues to have same vision issues. Objective - Vital Signs Vital signs: Vital Signs Temp 97.3 F L 08/03/22 11:49 Pulse 90 08/03/22 11:49 Resp 16 08/03/22 11:49 BP 146/65 08/03/22 11:49 Pulse Ox 95 08/03/22 11:49 FiO2 Intake & Output 08/02/22 08/03/22 08/03/22 18:59 06:59 18:59 Intake Total 240 240 Balance 240 240 Weight 46.266 kg Intake: Oral 240 240 Other: # Voids 1 2 - Exam GENERAL: The patient is lying in bed and is not in acute distress. NEUROLOGICAL: Higher mental function: The patient is awake, alert, oriented to self, place and time. Patient is following commands. No aphasia and no neglect. Cranial nerves: The pupils are round, equal and reactive to light and accommodation. Visual agosto is full over the right eye and appears full on the left but then stated she could not see out left uppers left eye when looking at my face. Extraocular movement is intact no nystagmus is noted. Facial sensation is normal to touch throughout. The facial strength is normal throughout. Hearing is normal bilaterally to hand rub. Tongue is midline and moved [id number] without any difficulty. No dysarthria is noted. Shoulder shrug is normal bilaterally. Motor: The strength is 5 over 5 throughout. Normal tone and bulk. Cerebellum: Normal finger to nose bilaterally. Sensation: Sensation is normal to touch throughout. Reflexes (right/left): 2+ throughout. Plantars are mute bilaterally. Some of the workup during this hospital visit consisted of: CBC with differential is unremarkable TSH is 0.015 and the free T4 is 2.31 both is abnormal Hemoglobin A1c is 5.8 CRP is less than 0.5 ESR is 11. Her drug screen is positive for benzo the rest is not detected. Chemistry panels AST of 45 ALT [address] the head is reported as no acute intracranial process radiographically apparent. Follow-up MRI can be performed as cortical indicated. I personally reviewed the CT of the head and I agree with report. EKG is reported as electronic ventricular pacemaker. Abnormal rhythm EKG. Carotid duplex was reported as intimal thickening without significant flow li miting stenosis. Incidental note is made of a large right lobe thyroid nodule. Thyroid ultrasound is recommended for additional workup. - Labs CBC & Chem 7: 08/03/22 08:51 08/03/22 08:51 Labs: Abnormal Lab Results - Last 24 Hours (Table) 08/02/22 08/02/22 08/03/22 Range/Units 13:13 14:30 08:51 Creatinine 0.48 L (0.52-1.04) mg/dL Glucose 100 H (74-99) mg/dL TSH <0.015 L (0.465-4.680) mIU/L Free T4 2.31 H (0.78-2.19) ng/dL U Benzodiazepines Scrn Detected H (NotDetected) Assessment and Plan Assessment: Acute left central visual loss for past two week with episode of garbled speech (today) and has episode of left facial numbness that was transient possibly a week ago and headache since yesterday: Appears due to acute to subacute ischemic stroke (especially with her cardiac risk factors). ESR and CRP is normal and this is not vasculitis. Chest Palpitation Hyperthyroidism Atrial fibrillation not on anticoagulation Nonischemic cardiomyopathy status post AICD History of Second-degree AV block Appears the patient has underlying anxiety Plan: Patient refused CTA of head and neck. Cannot obtain MRI because AICD. Will obtain repeat CT head since her symptoms has been going on for 2 weeks and will see if any new changes compared to prior. Continue aspirin 325mg daily and Plavix 75 mg daily (both new). Recommend to be on dual antiplatelets then stop Plavix after 21 days and continue ASA indef initely. Continue Lipitor 80mg qhs for secondary stroke prophylaxis. Pending 2Decho, lipid panel. Continue neuro checks On cardiac monitoring PT OT and DIRECTOR OF PARKS AND RECREATION are consulted Consulted ophthalmology team (Dr. Alisia Sauceda) for vision loss. And he stated that this could be from branch of artery macular occlusion from embolus or acute be retinal area difficult evaluate on bedside exam and recommended outpatient evaluation for today or for Saturday to evaluate the macula with OCT and have full retinal examination. Neurologic perspective if all the workup is done above she is clear for discharge and to follow-up with ophthalmology and neurology as an outpatient with him in 1-2 weeks Defer her abnormal thyroid indices hyperthyroidism to the primary team. We'll defer the rest of the medical management to primary team For DVT prophylaxis, on subcu heparin 5000 units every 8 hours. Patient is resistant on any workup and questions any medication that is being started for her management. From a neurologic perspective repeat CT of the head is unchanged and she is clear for discharge from a neurology perspective. The plan is discussed with the patient, her and her nurse. Also discussed with primary team. Lyndon Evans M.D. Neuro-Hospitalist Time with Patient: Less than 30
--- NOTE | 2022-08-03 12:54 | CA ---
Transthoracic Echo Report Name: Ad Doherty Age: 66 Gender: F : 1955 Exam Date: 08/03/2022 08:39 Exam Location: [facility] Ht (in): 62 Wt (lb): 102 Ordering Physician: Alistair Everett DO Attending/Referring Phys: Commissioning Engineer Viridiana Garcia RDCS Procedure CPT: Indications: Thrombus Cardiac Hx: Technical Quality: Good Contrast 1: Total Dose (mL): Contrast 2: Total Dose (mL): MEASUREMENTS (Male / Female) Normal Values 2D ECHO LV Diastolic Diameter PLAX 3.4 cm 4.2 - 5.9 / 3.9 - 5.3 cm LV Systolic Diameter PLAX 2.1 cm IVS Diastolic Thickness 1.0 cm 0.6 - 1.0 / 0.6 - 0.9 cm LVPW Diastolic Thickness 1.0 cm 0.6 - 1.0 / 0.6 - 0.9 cm LV Relative Wall Thickness 0.6 RV Internal Dim ED PLAX 3.3 cm LA Systolic Diameter LX 2.4 cm 3.0 - 4.0 / 2.7 - 3.8 cm M-MODE Aortic Root Diameter MM 3.0 cm MV E Point Septal Separation 0.5 cm AV Cusp Separation MM 1.6 cm DOPPLER AV Peak Velocity 148.0 cm/s AV Peak Gradient 8.8 mmHg MV Area PHT 2.2 cm??? Mitral E Point Velocity 79.4 cm/s Mitral A Point Velocity 89.6 cm/s Mitral E to A Ratio 0.9 MV Deceleration Time 346.3 ms MV E' Velocity 8.9 cm/s Mitral E to MV E' Ratio 8.9 TR Peak Velocity 236.9 cm/s TR Peak Gradient 22.5 mmHg Right Ventricular Systolic Press 25.6 mmHg FINDINGS Left Ventricle Left ventricular ejection fraction is estimated at 60-65 %. Left ventricular cavity size normal. Left ventricular wall thickness normal. Right Ventricle Mild right ventricular dilatation. Right ventricular systolic pressure within normal limits. Right Atrium Normal right atrial size. Left Atrium Normal left atrial size. Mitral Valve Mild mitral regurgitation. Aortic Valve Trileaflet aortic valve. Focal thickening of the aortic valve cusps. Tricuspid Valve Mild tricuspid regurgitation. Pulmonic Valve Structurally normal pulmonic valve. Pericardium Normal pericardium. No pericardial effusion. Aorta Normal size aortic root and proximal ascending aorta. CONCLUSIONS Normal left ventricular dimension and systolic function Previewed by: Dr. Chino Wilson MD (Electronically Signed) Final Date: 03 August 2022 12:53
--- NOTE | 2022-08-03 14:36 | CT ---
EXAMINATION TYPE: CT brain wo con DATE OF EXAM: 08/03/2022 HISTORY: Stroke, LT eye vision loss CT DLP: 1072.4 mGycm. Automated Exposure Control for Dose Reduction was Utilized. TECHNIQUE: CT scan of the head is performed without contrast. COMPARISON: CT brain 1 day earlier. FINDINGS: There is no acute intracranial hemorrhage or midline shift identified. There is mild diff use ventricular and sulcal prominence with sulcal prominence greatest over the superior bilateral fro ntal lobes. Resendez-white matter differentiation fairly well maintained. The globes are intact and the visualized sinuses are clear. IMPRESSION: No acute intracranial hemorrhage or midline shift. No significant change from prior MRI.
[2022-08-03 17:46] LABS: Chol/HDL Ratio 3.73 Ratio; LDL Cholesterol,Calculated 115.7 mg/dL (0.0-131.0)
[2022-08-03] MEDS ORDERED: ATORVASTATIN 80 MG TAB PO SCH (21:00)
== END 2022-08-03 15:56 | disposition home or self-care (01) | DRG 65 ==
LOC: EC 06:56 → 3SCARD 09:45
PROVIDERS: ADMIT Internal Medicine; ATTEND Internal Medicine
PROC: 4A02X4Z Measurement of Cardiac Electrical Activity, External Approach (ICD-10-PCS; principal; 2022-08-03)
PROC: 4A02XFZ Measurement of Cardiac Rhythm, External Approach (ICD-10-PCS; principal; 2022-08-03)
DX: I63.9 Cerebral infarction, unspecified (principal); I42.8 Other cardiomyopathies; I44.1 Atrioventricular block, second degree; J44.9 Chronic obstructive pulmonary disease, unspecified; I48.0 Paroxysmal atrial fibrillation; Z28.310 Unvaccinated for COVID-19; I34.0 Nonrheumatic mitral (valve) insufficiency; I10 Essential (primary) hypertension; E05.90 Thyrotoxicosis, unspecified without thyrotoxic crisis or storm; R07.89 Other chest pain; R47.89 Other speech disturbances; R29.810 Facial weakness; H54.62 Unqualified visual loss, left eye, normal vision right eye; R29.700 NIHSS score 0; I25.10 Atherosclerotic heart disease of native coronary artery without angina pectoris; F41.0 Panic disorder [episodic paroxysmal anxiety]; Z79.899 Other long term (current) drug therapy; Z95.810 Presence of automatic (implantable) cardiac defibrillator; Z88.1 Allergy status to other antibiotic agents; Z88.5 Allergy status to narcotic agent; Z88.2 Allergy status to sulfonamides; Z88.8 Allergy status to other drugs, medicaments and biological substances; Z82.3 Family history of stroke
CPT/HCPCS: 36415; 70450; 71046; 80053; 80061; 80306; 81003; 83036; 84439; 84443; 84484; 85025; 85610; 85652; 85730; 86140; 93005; 93306; 93880; 94760; 96361; 96374; 96375; 99285